=== PATIENT | female | born 1935 | race Caucasian/White ===

== ENCOUNTER 2017-12-31 10:33 | Outpatient (CLI) | payer MEDICARE | END 2017-12-31 10:34 | disposition home or self-care (01) | LOC: BICMAMMO 10:33 | PROVIDERS: ATTEND Family Medicine | DX: Z13.820 Encounter for screening for osteoporosis (principal); M85.88 Other specified disorders of bone density and structure, other site; M51.36 Other intervertebral disc degeneration, lumbar region | CPT/HCPCS: 77080 ==

== ENCOUNTER 2018-04-08 10:37 | Inpatient (IN) | payer MEDICARE, MEDICAID ==
[2018-04-08] MEDS ORDERED: Albuterol Sulfate HFA (OR ONLY) ONE (11:08)
[2018-04-08] MEDS ORDERED: Thrombin 5000 UNITS/5 ML VIAL ONE ×2 (11:32→14:19)
[2018-04-08] MEDS ORDERED: Sodium Chloride 0.9% 20 ML ONE (11:32)
[2018-04-08] MEDS ORDERED: Bupivacaine HCl 0.5%/Epinephrine 1:200,000/PF 30 ml Vial ONE (11:32)
[2018-04-08] MEDS ORDERED: Fentanyl 100 MCG/2 ML VIAL ONE (11:33)
[2018-04-08] MEDS ORDERED: HYDROmorphone 0.5 MG/0.5 ML SYRINGE ONE (11:35)
[2018-04-08] MEDS ORDERED: CEFAZOLIN/Water 2 GM/20 ML SYRINGE ONE (11:43)
[2018-04-08 12:01] LABS: Prothrombin Time 13.2 SEC (12.0-14.7)
[2018-04-08 12:03] LABS: #Eosinphils 0.2 thou/uL (0.0-0.7); #Lymphocytes 1.9 thou/uL (1.20-3.40); #Monocytes 0.5 thou/uL (0.11-0.59); #Neutrophils 5.4 thou/uL (1.40-6.50); %Basophils 0.6 % (0.0-1.0); %Eosinophils 2.4 % (0.0-10.0); %Lymphocytes 23.2 % (21.0-51.0); %Monocytes 6.2 % (0.0-10.0); %Neutrophils 67.7 % (42.0-75.0); Hemoglobin 13.8 g/dL (12.0-16.0); Mean Corpuscular Hemoglobin 32.4 pg (27.0-31.0); Mean Corpuscular Volume 95.4 fl (81.0-99.0); Mean Platelet Volume 6.4 fL (7.4-10.4); Platelet Count 111 thou/uL (130-400); RBC Distribution Width 11.6 % (11.5-14.5); Red Blood Cell (RBC) Count 4.24 mill/uL (4.20-5.40)
[2018-04-08 12:16] LABS: Anion Gap 16 mmol/L (10-20); BUN (Urea Nitrogen) 23 mg/dL (9.8-20.1); Calc. Creatinine Clearance 0 mL/min (70-130); Calcium 8.9 mg/dL (7.8-10.44); Carbon Dioxide 31 mmol/L (23-31); Chloride 93 mmol/L (98-107); Estimated GFR-MDRD 33; Glucose 138 mg/dL (83-110); Potassium 4.9 mmol/L (3.5-5.1); Sodium 135 mmol/L (136-145)
--- NOTE | 2018-04-08 13:09 | HP ---
NEUROSURGERY ADMISSION HISTORY AND PHYSICAL REASON FOR ADMISSION: Here for back surgery. HISTORY OF PRESENT ILLNESS: Ms. Anguiano is an 82-year-old woman who lives in a care center at [facility] because of leg weakness after a fall. It has been a while since being able to stand and walk o n her own legs. The fall, weakness or numbness in the legs has progressively gotten worse over years when she was sent to our office for neurosurgical opinion. Imaging reveals severe lumbar stenosis o chaz multiple segments. This is a surgically treatable. We offered her operative intervention with t giana caveat pain that she will need extensive physical therapy afterwards. She is here for the surgery . PAST MEDICAL HISTORY: Diabetes type I, degenerative joint disease, osteoarthritis, gastroesophageal reflux, COPD, chronic kidney disease stage 3, polyneuropathy, hypokalemia, anxiety disorder, heart fa ilure, chronic atrial fibrillation, hypertension, hypomagnesemia, atherosclerotic heart disease. PAST SURGICAL HISTORY: Total knee replacement in 2009, appendectomy, cholecystectomy, thumb surgery, hip surgery, carpal tunnel release, bilateral excision of heel spurs, bilateral hysterectomy. MEDICATIONS: Include omeprazole, atorvastatin, furosemide, Januvia, potassium chloride, Celexa, andres riptyline, Artificial Tears, magnesium, Lomotil, Multaq, metoprolol, Lyrica, vitamin C, tramadol, Hum alog insulin, promethazine, vitamin B12, meperidine, Imodium, MiraLax, Spiriva, ferrous sulfate, and DuoNebs. ALLERGIES: CODEINE and ASPIRIN. FAMILY HISTORY: Parents were . No family history of significant spine disease. SOCIAL HISTORY: Silvio is staying in the care facility. She is out of her home. She is dependent f or her care. She needs significant assistance to stand and walk. She is a nonsmoker. She does not use alcohol. She does not use drugs. She is retired. REVIEW OF SYMPTOMS: Otherwise negative. PHYSICAL EXAMINATION: GENERAL: Silvio is awake, alert, and answering questions appropriately, receptive and expressive jacobo guage function are normal. NEUROLOGIC: Cranial nerves are grossly intact. Alternating rapid motions are performed rapidly and smoothly. There are no lateralizing motor deficits in the lower extremities. There is moderate weak ness in the quadriceps, hamstrings, anterior tibia, EHL, and gastrocnemius on both sides. There is s ensory deficits in the legs that extend over multiple dermatomes in a stocking distribution. Examina tion of the spine reveals some midline tenderness near the lumbosacral junction. IMAGING FINDINGS AND TEST RESULTS. There is multiple level lumbar stenosis. Flexion and extension v iews do not show significant instability. IMPRESSION: Multilevel lumbar stenosis, severe debilitating neurogenic claudication disease atrophy, leg weakness. PLAN: We will take Ms. Anguiano to the operating room for decompressive laminectomy and plan on keepin g her overnight and consulting our colleagues in the Hospitalist Service due to her multiple medical conditions. Anticipated length of stay is at least one night if not 2-3. We will see how she is doi ng tomorrow. We will get physical therapy to work with her while she is in the hospital.
[2018-04-08] MEDS ORDERED: Albumin 5% 500 ML ONE (14:36)
[2018-04-08] MEDS ORDERED: Ondansetron HCl/PF 4 MG/2 ML Vial ONE (14:59)
[2018-04-08] MEDS ORDERED: Metoclopramide HCl 10 MG/2 ML VIAL ONE (14:59)
[2018-04-08] MEDS ORDERED: PHENYLEPHRINE-NS 100 MCG/ML 10 ML SYRINGE ONE (14:59)
[2018-04-08] MEDS ORDERED: PROPOFOL 200 MG/20 ML VIAL ONE (14:59)
[2018-04-08] MEDS ORDERED: Glycopyrrolate 0.2 MG/ML 5 ML SYRINGE ONE (14:59)
[2018-04-08] MEDS ORDERED: PROVENTIL INHALER 6.7 G (200 INHALATIONS) ONE (14:59)
[2018-04-08] MEDS ORDERED: Lidocaine 1% PF 5 ML VIAL ONE ×2 (14:59)
[2018-04-08 15:05] LABS: Hemoglobin 12.4 g/dL (12.0-16.0)
[2018-04-08] MEDS ORDERED: Ondansetron HCl/PF 4 MG/2 ML Vial IVP PRN ×2 (15:10→15:21)
[2018-04-08] MEDS ORDERED: tiZANidine HCl 4 MG TAB PO PRN (15:10)
[2018-04-08] MEDS ORDERED: traMADol HCl 50 MG TAB PO PRN (15:10)
[2018-04-08] MEDS ORDERED: Promethazine 25 MG TAB PO PRN (15:10)
[2018-04-08] MEDS ORDERED: Promethazine HCl 25 MG/ML VIAL IM PRN ×2 (15:10→15:21)
[2018-04-08] MEDS ORDERED: Cyclobenzaprine 10 MG TAB PO PRN (15:10)
[2018-04-08] MEDS ORDERED: Bisacodyl 10 MG SUPP PR PRN (15:10)
[2018-04-08] MEDS ORDERED: Promethazine HCl 12.5 MG SUPP PR PRN (15:10)
[2018-04-08] MEDS ORDERED: HYDROmorphone 2 MG/ML VIAL SLOW IVP PRN (15:21)
[2018-04-08] MEDS ORDERED: Promethazine HCl 25 MG/ML VIAL SLOW IVP PRN (15:21)
[2018-04-08] MEDS ORDERED: Morphine Sulfate 2 MG/ML SYRINGE SLOW IVP PRN (15:21)
[2018-04-08 18:40] VITALS: BMI 33.2
--- NOTE | 2018-04-08 20:06 | OP ---
DATE OF OPERATION: 04/08/2018 SURGEON: Chuckie Clay M.D. PACKING AND WRAPPING SUPERVISOR: CURTIS Can. PREOPERATIVE INDICATION: Treat pain, prevent neurological deterioration. PREOPERATIVE DIAGNOSES: Multilevel lumbar stenosis, severe neurogenic claudication. POSTOPERATIVE DIAGNOSES: Multilevel lumbar stenosis, severe neurogenic claudication. OPERATIVE PROCEDURE: Decompressive laminectomy, medial facetectomy, foraminotomy, L2-3, L3-4, L4-5. PREOPERATIVE MEDICATION: Ancef 2 grams IV. DRAIN NUMBER: One. DRAIN TYPE: 10 Serbian . OPERATIVE DICTATION: The patient was brought to the operating room. General endotracheal anesthesia was induced. The patient was positioned prone on the operating table with chests and hips supported by gel-filled chest rolls. A lateral fluoro radiograph was used to plan our incision. The lumbar s kin was sterilely prepped and draped. We opened with a 10 blade knife and controlled bleeding with b ipolar and monopolar cautery. We used monopolar cautery to dissect through subcutaneous tissues to t horacodorsal fascia. We incised the fascia in the midline and reflected the paraspinal muscles off t he spinous process and lamina of L2, L3, L4 and the superior portion of L5. Self-retaining retractor s were placed and a lateral fluoro radiograph confirmed the levels upon which we were operating. We then used an Adson rongeur to remove the spinous process of L2, L3, L4 and the superior portion of L5 . Using a Kerrison rongeur, we fashioned the laminectomy. We widened our laminectomy defect until w e were flush with the pedicles at L3, L4, and L5. We performed foraminotomies over the exiting nerve roots including the L2 nerve roots, L3 nerve roots, L4 nerve roots and L5 nerve roots bilaterally. At the completion of our decompression, a Katz ball probe could pass through the lateral recess and out the foramen without impingement. We irrigated copiously with bacitracin irrigation. She had a generous amount of epidural veins which were controlled with gentle bipolar cautery and small pledget s of Gelfoam. We tunneled a drain inferiorly through a separate stab incision. We treated the wound with vancomycin powder. We waxed the bone edges. We closed the wound in anatomic layers over the d rain after copious amounts of irrigation. Sterile dressings were applied. This was a clean case and no contamination.
[2018-04-08] MEDS: Polyethylene Glycol 3350 17 GM Packet PO SCH (20:19)
[2018-04-08] MEDS: Pregabalin 50 MG CAP PO SCH (20:19)
[2018-04-08] MEDS: CEFAZOLIN/Water 2 GM/20 ML SYRINGE SLOW IVP SCH (20:19)
[2018-04-08] MEDS: Citalopram 20 MG TAB PO SCH (20:19)
[2018-04-08] MEDS: Amitriptyline HCl 10 MG TAB PO SCH (20:20)
[2018-04-08] MEDS: Metoprolol Tartrate 25 MG TAB PO SCH (20:20)
[2018-04-08] MEDS: Potassium Chloride 20 MEQ TAB PO SCH (20:20)
[2018-04-08] MEDS: Ascorbic Acid 500 mg Chewable Tablet PO SCH (20:20)
[2018-04-08] MEDS: Sodium Chloride 0.9% 1,000 ML IV SCH (20:35)
--- NOTE | 2018-04-08 23:25 | PDOC.EVN ---
Attending Addendum - Attending Addendum Date/Time: 04/08/18 3354 I personally evaluated the patient and discussed the management with Dr. Reaves. I agree with the History, Examination, Assessment and Plan documented in his consult note with any addition or exceptions noted below. Patient is 82 yo F with Hx of COPD, CHF, CKD3, T2DM, and chronic Afib who is admitted after decompressive laminectomy 2/2 severe neurogenic claudication and lumbar stenosis. She is currently doing well. She has been restarted on home medications for chronic conditions and reports no issues. We have been consulted for medical mgmt. Continue home medications, and will adjust as necessary. Will add Accuchecks due to her GARCIA therapy for T2DM that can precipitate hypoglycemia in a patient of this age, especially with alteration of diet. HR stable, continue to monitor as anesthesia can be trigger for Afib RVR. Will adjust medications as necessary, but as of current, I do not see any conditions that would hinder her discharge once stable by the primary team.
[2018-04-09] MEDS: CEFAZOLIN/Water 2 GM/20 ML SYRINGE SLOW IVP SCH ×2 (03:14→11:35)
[2018-04-09] MEDS: Sodium Chloride 0.9% 1,000 ML IV SCH ×2 (03:16→17:06)
[2018-04-09 05:32] LABS: Anion Gap 12 mmol/L (10-20); BUN (Urea Nitrogen) 22 mg/dL (9.8-20.1); Calc. Creatinine Clearance 43 mL/min (70-130); Calcium 8.1 mg/dL (7.8-10.44); Carbon Dioxide 31 mmol/L (23-31); Chloride 96 mmol/L (98-107); Estimated GFR-MDRD 32; Glucose 127 mg/dL (83-110); Potassium 4.7 mmol/L (3.5-5.1); Sodium 134 mmol/L (136-145)
--- NOTE | 2018-04-09 05:53 | CON-2 ---
ADMITTING PHYSICIAN: Chuckie Clay M.D. CONSULTING PHYSICIAN: Jason Brock MD PRIMARY CARE PHYSICIAN: Swati Carmen M.D. HISTORIAN: The patient. CHIEF COMPLAINT: Weakness and leg pain. HISTORY OF PRESENT ILLNESS: This is an 82-year-old female with past medical history of type 2 diabetes, COPD, diastolic CHF, chronic atrial fibrillation, coronary artery disease, hypertension, kidney disease stage 3, DJD and osteoarthritis, who presented from a [facility] today due to leg weakness and recurrent falls. This weakness and numbness in the legs has progressively gotten worse over the years, was then evaluated by Neurosurgery, who noted progression of her severe lumbar stenosis in multiple areas. She was admitted for decompressive laminectomy today by Dr. Clay. When interviewed postoperatively, the patient feels that her legs are much better, but she still has some mild back pain from surgery. The patient has been restarted on all of her home medications. Denies any chest pain or shortness of breath at this time. PAST MEDICAL HISTORY: 1. Chronic atrial fibrillation. 2. Diastolic CHF. 3. Type 2 diabetes. 4. COPD. 5. CAD. 6. Hypertension. 7. GERD. 8. CKD, stage 3. 9. Degenerative joint disease. 10. Osteoarthritis. PAST SURGICAL HISTORY: 1. Total knee replacement. 2. Cholecystectomy. 3. Appendectomy. 4. Hip surgery. 5. Hysterectomy 6. Thumb surgery. ALLERGIES: Patient is allergic to CODEINE and ASPIRIN. MEDICATIONS: 1. Januvia 25 mg p.o. daily. 2. Lasix 40 mg p.o. b.i.d. 3. Lomotil 1-2 tabs p.o. daily p.r.n. 4. Lyrica 50 mg 1 tab p.o. b.i.d. 5. Magnesium 250 mg 1 tab b.i.d. 6. Metoprolol tartrate 12.5 mg 1 tablet p.o. b.i.d. 7. MiraLax 17 g daily p.r.n. 8. Multaq 400 mg 1 tablet b.i.d. 9. Omeprazole 20 mg 1 tablet p.o. daily. 10. Pravastatin 10 mg 1 tablet p.o. at bedtime. 11. Promethazine 12.5 mg p.o. daily p.r.n. nausea, vomiting. 12. Spiriva 18 mcg one capsule daily. 13. Zyrtec 2 mg 1 tablet p.o. daily. 14. Alendronate 70 mg p.o. 1 tablet daily. 15. Sitagliptin 50 mg p.o. daily. 16. Folate 1 tablet p.o. daily. 17. Ferrous sulfate 325 mg 1 tablet p.o. daily. 18. Celexa 30 mg 1 tablet at bedtime 19. Amitriptyline 10 mg p.o. at bedtime. FAMILY HISTORY: Noncontributory to this case. SOCIAL HISTORY: Denies tobacco, alcohol, or drug use. The patient resides in a long-term care facility in [place]. REVIEW OF SYSTEMS: A 10-point review of systems performed and negative except as per HPI above. PHYSICAL EXAMINATION: VITAL SIGNS: Blood pressure 129/62, pulse 72, respirations 16, T-max 97.7, pulse ox 97% on 2 liters nasal cannula, weight 99 kilos. GENERAL: Alert and oriented x3, no acute distress, obese female who is appropriately interactive, smiling, comfortable lying in bed. EYES: Pupils equal, round, and reactive to light. Extraocular movements are intact. Conjunctivae within normal limits. ENT: Nasal mucosa and oropharynx within normal limits. NECK: Supple, without lymphadenopathy. CARDIOVASCULAR: Irregular rhythm, regular rate, no murmurs. Radial and pedal pulses are present. RESPIRATORY: Normal effort, no retractions, clear to auscultation bilaterally. SKIN: Warm and dry without cyanosis or lesions. ABDOMEN: Soft, nontender to palpation. Bowel sounds are present. EXTREMITIES: No cyanosis or edema. Muscle strength are limited due to pain, however, structure appears within normal limits. Tone within normal limits ( limited due to lower extremity weakness). NEUROLOGIC: No deficits. Sensation within normal limits. Cranial II-XII are intact. GCS 15. PSYCHIATRIC: Appropriate. LABORATORY: CBC; hemoglobin 12.4, hematocrit 35.5, platelets 111. CMP; sodium 135, potassium 4.9, chloride 93, bicarbonate 31, BUN 23, creatinine 1.49, glucose 138. PT 13.2, INR 1.0. Urinalysis pending at this time. ASSESSMENT AND PLAN: This is an 82-year-old female who presented for decompressive laminectomy due to neurogenic claudication and weakness. We were consulted for medical management. 1. Lumbar stenosis. The patient is status post decompressive laminectomy, management as per primary team. Pain appears well controlled at this time. 2. Type 2 diabetes. We will continue home diabetic medication. Accu-Cheks before meals and at bedtime. Add sliding scale as needed, although the patient appeared well controlled thus far on this medication. 3. Coronary artery disease. The patient is allergic to ASPIRIN. We will continue rate controlled with metoprolol and Lasix. 4. Diastolic congestive heart failure. We will continue Lasix. The patient was euvolemic at this time. 5. Chronic obstructive pulmonary disease. P.r.n. DuoNeb. Continue Spiriva. 6. Chronic atrial fibrillation. Continue dronedarone and metoprolol, rate control at this time, asymptomatic. 7. Hypertension. Continue metoprolol, otherwise not on any blood pressure medications. 8. Degenerative joint disease. Tylenol p.r.n. 9. Gastroesophageal reflux disease. Continue proton pump inhibitor. 10. Chronic kidney disease stage 3, appears at baseline at this time. We will recheck BMP in the morning. Continue to trend. Thank you for this consultation. We will continue to follow the patient. CHEMA
[2018-04-09 06:05] LABS: #Eosinphils 0.1 thou/uL (0.0-0.7); #Monocytes 0.6 thou/uL (0.11-0.59); #Neutrophils 5.6 thou/uL (1.40-6.50); %Basophils 0.3 % (0.0-1.0); %Eosinophils 1.5 % (0.0-10.0); %Lymphocytes 14.3 % (21.0-51.0); %Monocytes 7.8 % (0.0-10.0); %Neutrophils 76.1 % (42.0-75.0); Hemoglobin 9.7 g/dL (12.0-16.0); Mean Corpuscular HGB CONC 34.7 g/dL (32.0-36.0); Mean Corpuscular Hemoglobin 33.3 pg (27.0-31.0); Mean Corpuscular Volume 96.2 fl (81.0-99.0); Mean Platelet Volume 6.5 fL (7.4-10.4); PLT Morphology Comment Appears Decreased; Platelet Count 80 thou/uL (130-400); RBC Distribution Width 11.6 % (11.5-14.5); Red Blood Cell (RBC) Count 2.91 mill/uL (4.20-5.40); White Blood Cell (WBC) Count 7.3 thou/uL (4.8-10.8)
--- NOTE | 2018-04-09 07:08 | PRG ---
DATE OF SERVICE: 04/09/2018 SUBJECTIVE: Ms. Kit Anguiano was seen in our hospital room this morning. She is postop day #1 from a multi-segment lumbar decompression for severe lumbar stenosis. Ms. Anguiano complaints of some back soreness from surgery, but says the legs feel normal to her. Her vitals have been stable overnight. Her blood pressure is 116/50 in her latest blood pressure test. On examination, she is moving her ankles and toes well. There is a stocking distribution sensory loss from her diabetes, but I do not find any new deficits relative to the surgery. Ms. Anguiano has been bedbound and not walking for quite some time. It is going to take extensive phys ical therapy to get her back up. We will start that process here and she may benefit from inpatient rehabilitation. She lives in [facility] and return to the intermediate could be possib le, but she might do better in inpatient physical therapy unit for the first few days.
[2018-04-09] MEDS: Polyethylene Glycol 3350 17 GM Packet PO SCH (08:40)
[2018-04-09] MEDS: Pregabalin 50 MG CAP PO SCH ×2 (08:42→23:29)
[2018-04-09] MEDS: Potassium Chloride 20 MEQ TAB PO SCH ×2 (08:42→23:32)
[2018-04-09] MEDS: Dronedarone HCl 400 MG TAB PO SCH ×2 (08:43→16:42)
[2018-04-09] MEDS: Alogliptin 25 MG TAB PO SCH (08:43)
[2018-04-09] MEDS: Folic Acid 1 MG TAB PO SCH (08:44)
[2018-04-09] MEDS: Ferrous Sulfate 325 MG TAB PO SCH (08:44)
[2018-04-09] MEDS: Ascorbic Acid 500 mg Chewable Tablet PO SCH ×2 (08:44→23:32)
[2018-04-09] MEDS: Furosemide 40 MG TAB PO SCH ×2 (08:44→13:32)
[2018-04-09] MEDS: Metoprolol Tartrate 25 MG TAB PO SCH ×2 (08:44→23:30)
--- NOTE | 2018-04-09 09:11 | PDOC.FM ---
- Subjective Subjective: Patient found resting in bed. She endorse having urination, has no BM yet, feels her surgical pain is tolerable. She says she is ready to start rehab. - Objective MAR Reviewed: Yes Vital Signs & Weight: Vital Signs (12 hours) Temp Pulse Resp BP Pulse Ox 04/09/18 08:15 98.3 F 82 16 97 04/09/18 07:29 98.3 F 82 16 136/74 97 04/09/18 03:30 97.6 F 79 16 116/50 L 99 04/09/18 00:00 98.1 F 72 18 135/69 96 Weight Weight 99 kg I&O: 04/08/18 04/09/18 04/10/18 06:59 06:59 06:59 Intake Total 930 Output Total 100 Balance 830 Result Diagrams: 04/09/18 04:25 04/09/18 04:25 <Juliano Ramon M - Last Filed: 04/09/18 09:06> - Objective Vital Signs & Weight: Vital Signs (12 hours) Temp Pulse Resp BP Pulse Ox 04/09/18 11:37 98.8 F 69 18 113/70 99 04/09/18 08:15 98.3 F 82 16 97 04/09/18 07:29 98.3 F 82 16 136/74 97 04/09/18 03:30 97.6 F 79 16 116/50 L 99 Weight Weight 99 kg I&O: 04/08/18 04/09/18 04/10/18 06:59 06:59 06:59 Intake Total 930 Output Total 100 Balance 830 Result Diagrams: 04/09/18 04:25 04/09/18 04:25 <Jason Brock R - Last Filed: 04/09/18 14:24> Phys Exam - Physical Examination Constitutional: NAD HEENT: moist MMs, sclera anicteric, oral pharynx no lesions Neck: no nodes, supple Respiratory: no wheezing, no rales, no rhonchi, clear to auscultation bilateral Cardiovascular: RRR, no significant murmur, no rub Gastrointestinal: soft, no distention Musculoskeletal: no edema Clean appearing surgical wound at back. Neurological: non-focal Lymphatic: no nodes Psychiatric: normal affect Skin: no rash <Juliano Ramon M - Last Filed: 04/09/18 09:06> Dx/Plan (1) Lumbar stenosis Code(s): M48.061 - SPINAL STENOSIS, LUMBAR REGION WITHOUT NEUROGENIC JAMES Status: Acute Plan: Patient is s/p laminectomy day 1. Her pain is well controlled. She states she wants to start PT today. (2) GERD (gastroesophageal reflux disease) Code(s): K21.9 - GASTRO-ESOPHAGEAL REFLUX DISEASE WITHOUT ESOPHAGITIS Status: Acute Plan: Continue PPI. She is not having issues from this at the moment. (3) CAD (coronary artery disease) Code(s): I25.10 - ATHSCL HEART DISEASE OF [place] CORONARY ARTERY W/O ANG PCTRS Status: Chronic Plan: Continue on lasix and metoprolol Patient allergic to aspirin. (4) CKD (chronic kidney disease) stage 3, GFR 30-59 ml/min Status: Chronic Plan: Stable and at baseline compared to previous visit. (5) COPD (chronic obstructive pulmonary disease) Status: Chronic Plan: Duoneb order placed for SOB/wheezing as needed. (6) Diabetes type 2, controlled Code(s): E11.9 - TYPE 2 DIABETES MELLITUS WITHOUT COMPLICATIONS Status: Chronic Plan: Added ACHS glucose check, add mild sliding scale insulin. Glucose in morning was appropriate. (7) Hypertension Code(s): I10 - ESSENTIAL (PRIMARY) HYPERTENSION Status: Chronic Plan: Pressure appropriate. Taking Multaq and metoprolol primarily for paroxsymal afib , but these also have some BP lowering. (8) Paroxysmal atrial fibrillation Code(s): I48.0 - PAROXYSMAL ATRIAL FIBRILLATION Status: Chronic Plan: Regular at this time. <Juliano Ramon M - Last Filed: 04/09/18 09:06> Attending Addendum - Attending Addendum Date/Time: 04/09/18 0241 I personally evaluated the patient and discussed the management with Dr. Ramon. I agree with the History, Examination, Assessment and Plan documented above with any addition or exceptions noted below. Patient doing well. Pain controlled by primary team. HR, BP, and renal function at baseline. Continue current medications and discharge per primary team. <Jason Brock - Last Filed: 04/09/18 14:24>
[2018-04-09] MEDS ORDERED: Dextrose 5% in Water 1,000 ML IV PRN (09:25)
[2018-04-09] MEDS ORDERED: Dextrose 50% Abboject 50 ML SYRINGE SLOW IVP PRN (09:25)
--- NOTE | 2018-04-09 09:46 | PDOC.FM ---
- Subjective Subjective: Patient - Objective MAR Reviewed: Yes Vital Signs & Weight: Vital Signs (12 hours) Temp Pulse Resp BP Pulse Ox 04/09/18 08:15 98.3 F 82 16 97 04/09/18 07:29 98.3 F 82 16 136/74 97 04/09/18 03:30 97.6 F 79 16 116/50 L 99 04/09/18 00:00 98.1 F 72 18 135/69 96 Weight Weight 99 kg I&O: 04/08/18 04/09/18 04/10/18 06:59 06:59 06:59 Intake Total 930 Output Total 100 Balance 830 Result Diagrams: 04/09/18 04:25 04/09/18 04:25 Dx/Plan (1) Lumbar stenosis Code(s): M48.061 - SPINAL STENOSIS, LUMBAR REGION WITHOUT NEUROGENIC JAMES Status: Acute Plan: Patient is s/p laminectomy day 1. Her pain is well controlled. She states she wants to start PT today. (2) GERD (gastroesophageal reflux disease) Code(s): K21.9 - GASTRO-ESOPHAGEAL REFLUX DISEASE WITHOUT ESOPHAGITIS Status: Acute Plan: Continue PPI. She is not having issues from this at the moment. (3) CAD (coronary artery disease) Code(s): I25.10 - ATHSCL HEART DISEASE OF [place] CORONARY ARTERY W/O ANG PCTRS Status: Chronic Plan: Continue on lasix and metoprolol Patient allergic to aspirin. (4) CKD (chronic kidney disease) stage 3, GFR 30-59 ml/min Status: Chronic Plan: Stable and at baseline compared to previous visit. (5) COPD (chronic obstructive pulmonary disease) Status: Chronic Qualifiers: Plan: Duoneb order placed for SOB/wheezing as needed. (6) Diabetes type 2, controlled Code(s): E11.9 - TYPE 2 DIABETES MELLITUS WITHOUT COMPLICATIONS Status: Chronic Plan: Added ACHS glucose check, add mild sliding scale insulin. Glucose in morning was appropriate. (7) Hypertension Code(s): I10 - ESSENTIAL (PRIMARY) HYPERTENSION Status: Chronic Plan: Pressure appropriate. Taking Multaq and metoprolol primarily for paroxsymal afib , but these also have some BP lowering. (8) Paroxysmal atrial fibrillation Code(s): I48.0 - PAROXYSMAL ATRIAL FIBRILLATION Status: Chronic Plan: Regular at this time.
[2018-04-09] MEDS: HumaLOG 300 UNITS/3 ML VIAL SC PRN (12:06)
[2018-04-09] MEDS: Citalopram 20 MG TAB PO SCH (23:31)
[2018-04-09] MEDS: Amitriptyline HCl 10 MG TAB PO SCH (23:32)
[2018-04-09] MEDS: traMADol HCl 50 MG TAB PO PRN (23:59)
[2018-04-10] MEDS: Sodium Chloride 0.9% 1,000 ML IV SCH (07:24)
[2018-04-10] MEDS: Pregabalin 50 MG CAP PO SCH ×2 (08:23→22:39)
[2018-04-10] MEDS: Dronedarone HCl 400 MG TAB PO SCH ×2 (08:23→17:44)
[2018-04-10] MEDS: Ascorbic Acid 500 mg Chewable Tablet PO SCH ×2 (08:24→22:38)
[2018-04-10] MEDS: Folic Acid 1 MG TAB PO SCH (08:24)
[2018-04-10] MEDS: Furosemide 40 MG TAB PO SCH ×2 (08:24→13:12)
[2018-04-10] MEDS: Metoprolol Tartrate 25 MG TAB PO SCH ×2 (08:24→22:38)
[2018-04-10] MEDS: Potassium Chloride 20 MEQ TAB PO SCH ×2 (08:24→22:39)
[2018-04-10] MEDS: Ferrous Sulfate 325 MG TAB PO SCH (08:25)
[2018-04-10] MEDS: Polyethylene Glycol 3350 17 GM Packet PO SCH ×3 (08:25→22:46)
[2018-04-10] MEDS: Alogliptin 25 MG TAB PO SCH (08:56)
--- NOTE | 2018-04-10 09:08 | PRG ---
DATE OF SERVICE: 04/10/2018 NEUROSURGERY NOTE SUBJECTIVE: Ms. Anguiano is 2 days out from a lumbar laminectomy. Her drain output was recorded yeste rday evening, but nothing overnight. She tells me she sat at the bedside yesterday, but did not brock d. There are no other issues. Vitals this morning look stable. She is afebrile. The drain is in p lace. Other than her length dependent peripheral neuropathy from diabetes, I do not find any new deirdre rological deficits. My plan for today is to attempt to stand with therapy. Hopefully, an inpatient rehabilitation stay c an be arranged for her. If the drain output is low this morning, it can be removed. We will continu e antibiotics until the drain is out and then give her 1 more dose and stop those.
--- NOTE | 2018-04-10 09:19 | PDOC.FM ---
- Subjective Subjective: Pt resting comfortable. States that pain is controlled. She has no specific complaints and states she is ready to work with PT - Objective MAR Reviewed: Yes Vital Signs & Weight: Vital Signs (12 hours) Temp Pulse Resp BP Pulse Ox 04/10/18 07:43 99.1 F 71 18 127/69 96 04/10/18 04:00 98 F 70 18 99/56 L 95 04/10/18 00:00 98.2 F 77 18 113/66 75 L Weight Weight 99 kg I&O: 04/09/18 04/10/18 04/11/18 06:59 06:59 06:59 Intake Total 930 300 480 Output Total 100 75 Balance 830 225 480 Result Diagrams: 04/09/18 04:25 04/09/18 04:25 <Emerson Negro - Last Filed: 04/10/18 09:17> - Objective Vital Signs & Weight: Vital Signs (12 hours) Temp Pulse Resp BP Pulse Ox 04/10/18 07:43 99.1 F 71 18 127/69 96 04/10/18 04:00 98 F 70 18 99/56 L 95 04/10/18 00:00 98.2 F 77 18 113/66 75 L Weight Weight 99 kg I&O: 04/09/18 04/10/18 04/11/18 06:59 06:59 06:59 Intake Total 930 300 480 Output Total 100 75 Balance 830 225 480 Result Diagrams: 04/09/18 04:25 04/09/18 04:25 <Breana Rodriguez - Last Filed: 04/10/18 09:50> Phys Exam - Physical Examination Constitutional: NAD HEENT: PERRLA, moist MMs Neck: no JVD Respiratory: clear to auscultation bilateral Cardiovascular: RRR, no significant murmur Gastrointestinal: soft, non-tender Musculoskeletal: no edema, pulses present Neurological: non-focal, normal sensation, moves all 4 limbs Lymphatic: no nodes Psychiatric: normal affect, A&O x 3 Skin: no rash, normal turgor <Emerson Negro - Last Filed: 04/10/18 09:17> Dx/Plan (1) GERD (gastroesophageal reflux disease) Code(s): K21.9 - GASTRO-ESOPHAGEAL REFLUX DISEASE WITHOUT ESOPHAGITIS Status: Acute Plan: Continue home PPI (2) Lumbar stenosis Code(s): M48.061 - SPINAL STENOSIS, LUMBAR REGION WITHOUT NEUROGENIC JAMES Status: Acute Plan: s/p laminectomy POD 2. Pain controlled. (3) CAD (coronary artery disease) Code(s): I25.10 - ATHSCL HEART DISEASE OF [place] CORONARY ARTERY W/O ANG PCTRS Status: Chronic Plan: Continue home metoprolol and lasix (4) CKD (chronic kidney disease) stage 3, GFR 30-59 ml/min Status: Chronic Plan: At baseline and stable (5) COPD (chronic obstructive pulmonary disease) Status: Chronic Plan: PRN duoneb. Currently at baseline (6) Diabetes type 2, controlled Code(s): E11.9 - TYPE 2 DIABETES MELLITUS WITHOUT COMPLICATIONS Status: Chronic Plan: ACHS accucheck. SSI. Low carb diet (7) Hypertension Code(s): I10 - ESSENTIAL (PRIMARY) HYPERTENSION Status: Chronic Plan: Pressure WNL,. Continue home meds (8) Paroxysmal atrial fibrillation Code(s): I48.0 - PAROXYSMAL ATRIAL FIBRILLATION Status: Chronic Plan: RRR at this time - Plan Plan: Dispo: pt is medically stable. DC planning to be done by primary team, current plan to dc to rehab <Emerson Negro - Last Filed: 04/10/18 09:17> Attending Addendum - Attending Addendum Date/Time: 04/10/18 0950 I personally evaluated the patient and discussed the management with Dr. Negro. I agree with the History, Examination, Assessment and Plan documented above with any addition or exceptions noted below. The patient is waiting on evaluation for inpatient rehab. she states pain is controlled. <Breana Rodriguez - Last Filed: 04/10/18 09:50>
--- NOTE | 2018-04-10 12:12 | ULT ---
VENOUS DOPLER BILATERAL: HISTORY: Immobility, lower extremity edema. FINDINGS: Multiple longitudinal and transverse images of the right and left lower extremity venous systems are obtained using a multihertz linear ray transducer. Real-time, color flow, and spectral waveform Dopp ler analysis was used to evaluate both lower extremity venous systems. Images demonstrate no evidence of acute or old clot seen in the right or left common femoral, superfi cial femoral, femoral profunda, popliteal, posterior tibial vein, post trifurcation veins, and greate r saphenous veins. IMPRESSION: No evidence of right or left lower extremity deep venous thrombosis. POS: [facility]
[2018-04-10] MEDS: CEFAZOLIN/Water 2 GM/20 ML SYRINGE SLOW IVP SCH ×2 (13:12→22:40)
[2018-04-10] MEDS ORDERED: Acetaminophen 500 MG TAB PO PRN ×2 (14:18)
[2018-04-10] MEDS: Citalopram 20 MG TAB PO SCH (22:38)
[2018-04-10] MEDS: Amitriptyline HCl 10 MG TAB PO SCH (22:39)
[2018-04-11] MEDS: Sodium Chloride 0.9% 1,000 ML IV SCH ×2 (01:23→08:50)
[2018-04-11] MEDS: CEFAZOLIN/Water 2 GM/20 ML SYRINGE SLOW IVP SCH ×3 (06:18→22:00)
--- NOTE | 2018-04-11 07:05 | PDOC.FM ---
- Subjective Subjective: 82 yo F s/p laminectomy POD 3. Pt was found to have fever of 100.8 yesterday and was started on Ancef. This has since resolved. She was only able to sit up with legs over the side of the bed with PT. She states that her pain is controlled. Denies all other symptoms in ROS. - Objective Vital Signs & Weight: Vital Signs (12 hours) Temp Pulse Resp BP Pulse Ox 04/11/18 04:00 98.9 F 70 16 106/50 L 96 04/11/18 00:00 99.8 F H 72 72 H 121/70 96 04/10/18 23:20 99.8 F H 72 16 121/70 96 04/10/18 20:00 99.8 F H 79 16 117/63 96 Weight Weight 99 kg I&O: 04/10/18 04/11/18 04/12/18 06:59 06:59 06:59 Intake Total 300 780 Output Total 75 170 Balance 225 610 Result Diagrams: 04/09/18 04:25 04/09/18 04:25 <Emerson Negro - Last Filed: 04/11/18 07:07> - Objective Vital Signs & Weight: Vital Signs (12 hours) Temp Pulse Resp BP Pulse Ox 04/11/18 12:00 98.3 F 66 18 113/64 94 L 04/11/18 11:33 98.3 F 66 18 113/64 94 L 04/11/18 07:55 98.2 F 68 18 96 04/11/18 07:36 98.2 F 68 18 123/63 96 04/11/18 04:00 98.9 F 70 16 106/50 L 96 Weight Weight 99 kg I&O: 04/10/18 04/11/18 04/12/18 06:59 06:59 06:59 Intake Total 300 780 750 Output Total 75 170 Balance 225 610 750 Result Diagrams: 04/09/18 04:25 04/09/18 04:25 <Breana Rodriguez - Last Filed: 04/11/18 15:27> Phys Exam - Physical Examination Constitutional: NAD HEENT: moist MMs, sclera anicteric Neck: no JVD, full ROM Respiratory: clear to auscultation bilateral Cardiovascular: RRR, no significant murmur Gastrointestinal: soft, non-tender, no distention, positive bowel sounds Musculoskeletal: no edema, pulses present Neurological: non-focal, normal sensation, moves all 4 limbs Lymphatic: no nodes Psychiatric: A&O x 3 Skin: no rash, normal turgor <Emerson Negro - Last Filed: 04/11/18 07:07> Dx/Plan (1) Lumbar stenosis Code(s): M48.061 - SPINAL STENOSIS, LUMBAR REGION WITHOUT NEUROGENIC JAMES Status: Acute Plan: s/p laminectomy POD 3. Some concern for post op infection dt fever. This has since resolved. She denies chills, n/v, pain at incision site. Continue abx (2) GERD (gastroesophageal reflux disease) Code(s): K21.9 - GASTRO-ESOPHAGEAL REFLUX DISEASE WITHOUT ESOPHAGITIS Status: Acute Plan: Continue home PPI (3) CAD (coronary artery disease) Code(s): I25.10 - ATHSCL HEART DISEASE OF [place] CORONARY ARTERY W/O ANG PCTRS Status: Chronic Plan: Continue home metoprolol and lasix (4) CKD (chronic kidney disease) stage 3, GFR 30-59 ml/min Status: Chronic Plan: At baseline and stable (5) COPD (chronic obstructive pulmonary disease) Status: Chronic Plan: PRN duoneb. Currently at baseline (6) Diabetes type 2, controlled Code(s): E11.9 - TYPE 2 DIABETES MELLITUS WITHOUT COMPLICATIONS Status: Chronic Plan: ACHS accucheck. SSI. Low carb diet (7) Hypertension Code(s): I10 - ESSENTIAL (PRIMARY) HYPERTENSION Status: Chronic Plan: Pressure WNL,. Continue home meds (8) Paroxysmal atrial fibrillation Code(s): I48.0 - PAROXYSMAL ATRIAL FIBRILLATION Status: Chronic Plan: RRR at this time <Emerson Negro - Last Filed: 04/11/18 07:07> Attending Addendum - Attending Addendum Date/Time: 04/11/18 8051 I personally evaluated the patient and discussed the management with Dr. Negro. I agree with the History, Examination, Assessment and Plan documented above with any addition or exceptions noted below. Pt spiked a fever yesterday and has been started on ancef by neurosurgery. Discussed the need for the patient to get out of bed and sit in a chair some today with nursing assistance. Still waiting on inpatient rehab screening. <Breana Rodriguez - Last Filed: 04/11/18 15:27>
--- NOTE | 2018-04-11 07:56 | PRG ---
DATE OF SERVICE: 04/11/2018 NEUROSURGERY NOTE SUBJECTIVE: Ms. Anguiano is 3 days out from a decompressive laminectomy. Yesterday's ultrasound of lo wer extremities was negative. Her drain remains in place. She tells me she did not stand yesterday. She did not transfer to a chair. She has not been out of her hospital bed since her laminectomy. I am seeing Ms. Anguiano this morning. She is awake and alert. She had a low grade fever of 100.8 deg lauren Fahrenheit last night. The drain has put 45 mL of fluid out since 8:00 p.m. Her neurological e xamination remains stable. Today's plan includes removal of the drain, continuation of her Ancef and transfers to a chair. We a re awaiting rehab evaluation. She will need to participate aggressively in physical therapy in order to get the best benefit from our laminectomy.
[2018-04-11] MEDS: Dronedarone HCl 400 MG TAB PO SCH ×2 (08:48→17:08)
[2018-04-11] MEDS: Pregabalin 50 MG CAP PO SCH ×2 (08:48→22:02)
[2018-04-11] MEDS: Ferrous Sulfate 325 MG TAB PO SCH (08:49)
[2018-04-11] MEDS: Ascorbic Acid 500 mg Chewable Tablet PO SCH ×2 (08:49→22:03)
[2018-04-11] MEDS: Potassium Chloride 20 MEQ TAB PO SCH ×2 (08:49→22:01)
[2018-04-11] MEDS: Alogliptin 25 MG TAB PO SCH (08:49)
[2018-04-11] MEDS: Polyethylene Glycol 3350 17 GM Packet PO SCH ×2 (08:49→22:42)
[2018-04-11] MEDS: Furosemide 40 MG TAB PO SCH ×2 (08:50→13:10)
[2018-04-11] MEDS: Metoprolol Tartrate 25 MG TAB PO SCH ×2 (08:50→22:01)
[2018-04-11] MEDS: Folic Acid 1 MG TAB PO SCH (08:50)
[2018-04-11] MEDS: HumaLOG 300 UNITS/3 ML VIAL SC PRN ×2 (12:25→17:08)
[2018-04-11 15:33] LABS: Bilirubin Negative (Negative); Blood, Urine Small (Negative); Clarity CLOUDY (Clear); Glucose, Urine (Dipstick) Negative (Negative); Leukocyte Large (Negative); Nitrite Negative (Negative); Protein, Urine (Dipstick) Trace mg/dL (Neg-Trace); Specific Gravity, Urine 1.014 (1.002-1.036); Urobilinogen 0.2 mg/dL (0.2-1.0); pH, Urine 5.5 (5.0-9.0)
[2018-04-11 15:35] LABS: Bacteria/HPF None Seen HPF (None Seen); Hyaline Casts/LPF 7-10 HYALINE CAST LPF (0-3 Hyaline); Pathc Cast-AUWi Flag 2.18 (0-2.49); RBC/HPF 0-3 HPF (0-3); Squamous Epithelial None Seen HPF (0-3)
[2018-04-11] MEDS: traMADol HCl 50 MG TAB PO PRN (22:00)
[2018-04-11] MEDS: Citalopram 20 MG TAB PO SCH (22:02)
[2018-04-11] MEDS: Amitriptyline HCl 10 MG TAB PO SCH (22:03)
[2018-04-12] MEDS: Sodium Chloride 0.9% 1,000 ML IV SCH ×2 (01:24→11:44)
[2018-04-12] MEDS ORDERED: Alendronate Sodium 70 mg Tablet PO SCH ×2 (06:00)
[2018-04-12] MEDS: CEFAZOLIN/Water 2 GM/20 ML SYRINGE SLOW IVP SCH ×3 (06:44→21:17)
--- NOTE | 2018-04-12 06:57 | PDOC.FM ---
- Subjective Subjective: Doing well at this time. Patient has no complaint except for itching on her shoulder, which nursing is applying lotion to. She says she hasn't been out of bed yet and that PT didn't show up yesterday. - Objective MAR Reviewed: Yes Vital Signs & Weight: Vital Signs (12 hours) Temp Pulse Resp BP Pulse Ox 04/12/18 03:24 98.4 F 62 16 93/53 L 95 04/12/18 00:00 98.2 F 66 16 118/65 97 04/11/18 20:00 98.4 F 68 20 109/63 95 Weight Weight 99 kg I&O: 04/10/18 04/11/18 04/12/18 06:59 06:59 06:59 Intake Total 473 736 3344 Output Total 75 170 400 Balance 741 192 2983 Result Diagrams: 04/09/18 04:25 04/09/18 04:25 <Juliano Ramon M - Last Filed: 04/12/18 09:18> - Objective Vital Signs & Weight: Vital Signs (12 hours) Temp Pulse Resp BP Pulse Ox 04/13/18 07:53 97.6 F 68 18 121/71 95 04/13/18 03:49 97.7 F 62 14 113/69 94 L 04/13/18 00:08 97.8 F 59 L 16 112/59 L 96 04/12/18 21:35 97.8 F 60 14 112/66 99 Weight Admit Weight 99 kg Weight 99 kg I&O: 04/12/18 04/13/18 04/14/18 06:59 06:59 06:59 Intake Total 1950 1710 Output Total 400 Balance 1550 1710 Result Diagrams: 04/09/18 04:25 04/09/18 04:25 <Brain Jaramillo - Last Filed: 04/13/18 09:31> Phys Exam - Physical Examination Constitutional: NAD HEENT: moist MMs Neck: supple Respiratory: no wheezing, no rales, no rhonchi Cardiovascular: RRR Mild 1/6 systolic murmur heard at EDER sternal border Gastrointestinal: soft Musculoskeletal: no edema Neurological: non-focal, moves all 4 limbs Lymphatic: no nodes Psychiatric: normal affect, A&O x 3 Skin: no rash <Juliano Ramon M - Last Filed: 04/12/18 09:18> Dx/Plan (1) Lumbar stenosis Code(s): M48.061 - SPINAL STENOSIS, LUMBAR REGION WITHOUT NEUROGENIC JAMES Status: Acute Plan: Plan for patient to continue PT. Dispo to inpatient rehab likely based on Neurosurg note. Patient pain under control. (2) CAD (coronary artery disease) Code(s): I25.10 - ATHSCL HEART DISEASE OF [place] CORONARY ARTERY W/O ANG PCTRS Status: Chronic Plan: Chronic issue, at this time stable. Continue home metoprolol and lasix. (3) CKD (chronic kidney disease) stage 3, GFR 30-59 ml/min Status: Chronic Plan: Has been at her baseline this year for the last two check. Will hold off on future BMP check as of this time. (4) COPD (chronic obstructive pulmonary disease) Status: Chronic Plan: Not having increased O2 requirement or symptoms. Continue prn duoneb. (5) Diabetes type 2, controlled Code(s): E11.9 - TYPE 2 DIABETES MELLITUS WITHOUT COMPLICATIONS Status: Chronic Plan: Glucose well controlled during past 24 hour. Has not required SSI Plan to continue home medication. (6) Hypertension Code(s): I10 - ESSENTIAL (PRIMARY) HYPERTENSION Status: Chronic Plan: No HTN episode. Continue home med (7) Paroxysmal atrial fibrillation Code(s): I48.0 - PAROXYSMAL ATRIAL FIBRILLATION Status: Chronic Plan: No symptoms of afib. Continue home metoprolol and multaq. <Juliano Ramon - Last Filed: 04/12/18 09:18> Attending Addendum - Attending Addendum Date/Time: 04/13/18930; seen on 04/12. I personally evaluated the patient and discussed the management with Dr. Ramon. I agree with and repeated the History, Examination, Assessment and Plan documented above with any addition or exceptions noted below. Continue medical management of comorbidities. Disposition per surgery. <Brain Jaramillo - Last Filed: 04/13/18 09:31>
--- NOTE | 2018-04-12 07:27 | PRG ---
DATE OF SERVICE: 04/12/2018 I am seeing Ms. Anguiano in her hospital room. She is 4 days out from lumbar laminectomy. She was not gotten out of bed by nursing or physical therapy through the weekend. She is lying in bed and this puts her wound at risk. Ms. Anguiano has no complaints for me this morning other than the physical therapy did not visit her ye sterday. Her recorded vital signs do not show any fever. Other vital signs have been stable. On ex amination, she has good feeling all the way to her toes. She has length dependent peripheral neuropa thy that affects sensation from the knees down, but it is no different from before surgery. She can move both legs quite well. Ms. Anguiano will need placement. I recommend aggressive physical therapy and if she is a candidate fo r inpatient rehabilitation, that would be great. Physical Therapy will likely come by today. Hopefu lly, they can stand her at bedside and help her with transfers to a chair. If she can take a few brian ps that would be all the much better to prove that she is ready for inpatient therapy.
[2018-04-12] MEDS: Polyethylene Glycol 3350 17 GM Packet PO SCH ×2 (09:17→21:17)
[2018-04-12] MEDS: Furosemide 40 MG TAB PO SCH ×2 (09:17→14:49)
[2018-04-12] MEDS: Ferrous Sulfate 325 MG TAB PO SCH (09:18)
[2018-04-12] MEDS: Ascorbic Acid 500 mg Chewable Tablet PO SCH ×2 (09:18→21:16)
[2018-04-12] MEDS: Dronedarone HCl 400 MG TAB PO SCH ×2 (09:18→17:42)
[2018-04-12] MEDS: Metoprolol Tartrate 25 MG TAB PO SCH ×2 (09:18→21:17)
[2018-04-12] MEDS: Folic Acid 1 MG TAB PO SCH (09:18)
[2018-04-12] MEDS: Pregabalin 50 MG CAP PO SCH ×2 (09:18→21:13)
[2018-04-12] MEDS: Potassium Chloride 20 MEQ TAB PO SCH ×2 (09:18→21:14)
[2018-04-12] MEDS: Alogliptin 25 MG TAB PO SCH (09:18)
[2018-04-12] MEDS: HumaLOG 300 UNITS/3 ML VIAL SC PRN ×2 (11:50→17:42)
[2018-04-12] MEDS: Amitriptyline HCl 10 MG TAB PO SCH (21:15)
[2018-04-12] MEDS: Citalopram 20 MG TAB PO SCH (21:15)
[2018-04-13] MEDS: Sodium Chloride 0.9% 1,000 ML IV SCH ×2 (03:16→14:33)
[2018-04-13] MEDS: CEFAZOLIN/Water 2 GM/20 ML SYRINGE SLOW IVP SCH ×3 (05:49→21:24)
--- NOTE | 2018-04-13 07:48 | PRG ---
DATE OF SERVICE: 04/13/2018 Ms. Anguiano is 5 days out from lumbar decompression. She had significant deconditioning before surger y and is slow to mobilize. Thankfully, yesterday our colleagues in physical therapy asked her to sta nd at the bedside. She did reasonably well shifting her weight from one side to the other and marchi ng in place. She did not take steps towards the hallway or towards the bathroom, but she did stand. That is an improvement. Ms. Anguiano had her drain pulled over the weekend. She is anticipating a move from the [facility] back to her care facility in [place] or inpatient rehabilitation. She is unsure of where she is going to go. I do not see any fevers recorded. Her other vital signs are reasonably stable. The neurological fun ction in lower extremities is stable. Her incision looks quite good. My plan for Mrs. Anguiano is to get as much physical therapy as possible. I think she would benefit fr om inpatient rehabilitation, and a transfer there seems to make sense and that could happen as early as today. If going back to her care facility in [place] offers her significant chance to do the rapy there, then those arrangements could be made as well. My preference is for rehab.
[2018-04-13] MEDS: Furosemide 40 MG TAB PO SCH ×2 (08:52→14:31)
[2018-04-13] MEDS: Ferrous Sulfate 325 MG TAB PO SCH (08:52)
[2018-04-13] MEDS: Dronedarone HCl 400 MG TAB PO SCH ×2 (08:53→18:19)
[2018-04-13] MEDS: Pregabalin 50 MG CAP PO SCH ×2 (08:53→21:13)
[2018-04-13] MEDS: Potassium Chloride 20 MEQ TAB PO SCH ×2 (08:53→21:13)
[2018-04-13] MEDS: Metoprolol Tartrate 25 MG TAB PO SCH ×2 (08:54→21:39)
[2018-04-13] MEDS: Ascorbic Acid 500 mg Chewable Tablet PO SCH ×2 (08:55→21:11)
[2018-04-13] MEDS: Alogliptin 25 MG TAB PO SCH (08:55)
[2018-04-13] MEDS: Folic Acid 1 MG TAB PO SCH (08:55)
[2018-04-13] MEDS: Polyethylene Glycol 3350 17 GM Packet PO SCH ×2 (08:58→21:39)
--- NOTE | 2018-04-13 09:23 | PDOC.FM ---
- Subjective Subjective: Patient states she stood yesterday. She also complains of neck itching. She otherwise denies issue with fever, pain, SOB. She is tolerating food and having BM. She state that she would be going to rehab soon. - Objective MAR Reviewed: Yes Vital Signs & Weight: Vital Signs (12 hours) Temp Pulse Resp BP Pulse Ox 04/13/18 07:53 97.6 F 68 18 121/71 95 04/13/18 03:49 97.7 F 62 14 113/69 94 L 04/13/18 00:08 97.8 F 59 L 16 112/59 L 96 04/12/18 21:35 97.8 F 60 14 112/66 99 Weight Admit Weight 99 kg Weight 99 kg I&O: 04/12/18 04/13/18 04/14/18 06:59 06:59 06:59 Intake Total 1950 1710 Output Total 400 Balance 1550 1710 Result Diagrams: 04/09/18 04:25 04/09/18 04:25 <Juliano Ramon - Last Filed: 04/13/18 09:21> - Objective Vital Signs & Weight: Vital Signs (12 hours) Temp Pulse Resp BP Pulse Ox 04/13/18 07:53 97.6 F 68 18 121/71 95 04/13/18 03:49 97.7 F 62 14 113/69 94 L 04/13/18 00:08 97.8 F 59 L 16 112/59 L 96 Weight Admit Weight 99 kg Weight 99 kg I&O: 04/12/18 04/13/18 04/14/18 06:59 06:59 06:59 Intake Total 1950 1710 Output Total 400 Balance 1550 1710 Result Diagrams: 04/09/18 04:25 04/09/18 04:25 <Brain Jaramillo - Last Filed: 04/13/18 10:30> Phys Exam - Physical Examination Constitutional: NAD HEENT: moist MMs Neck: supple Respiratory: no wheezing, no rales, no rhonchi Cardiovascular: RRR 1/6 systolic murmur Gastrointestinal: soft, non-tender, no distention, positive bowel sounds Musculoskeletal: no edema Neurological: non-focal Still limited mobility in legs but better then initial Lymphatic: no nodes Psychiatric: normal affect Deviation from normal: WC picture shows possible sacral ulcer devloping <Juliano Ramon - Last Filed: 04/13/18 09:21> Dx/Plan (1) Lumbar stenosis Code(s): M48.061 - SPINAL STENOSIS, LUMBAR REGION WITHOUT NEUROGENIC JAMES Status: Acute Plan: Plan for patient to continue PT. Dispo to inpatient rehab likely based on Neurosurg note. Patient pain under control. Patient strongly advised to work on mobilization today as she has a developign sacral ulcer (2) CAD (coronary artery disease) Code(s): I25.10 - ATHSCL HEART DISEASE OF [place] CORONARY ARTERY W/O ANG PCTRS Status: Chronic Plan: Chronic issue, at this time stable. Continue home metoprolol and lasix. (3) CKD (chronic kidney disease) stage 3, GFR 30-59 ml/min Status: Chronic Plan: Chronic issue. Has been at her baseline this year for the last two check. Will hold off on future BMP check as of this time. (4) COPD (chronic obstructive pulmonary disease) Status: Chronic Plan: Not having increased O2 requirement or symptoms. Continue prn duoneb. (5) Diabetes type 2, controlled Code(s): E11.9 - TYPE 2 DIABETES MELLITUS WITHOUT COMPLICATIONS Status: Chronic Plan: Glucose well controlled during past 24 hour. Has not required SSI Plan to continue home medication. (6) Hypertension Code(s): I10 - ESSENTIAL (PRIMARY) HYPERTENSION Status: Chronic Plan: No HTN episode. Continue home med (7) Paroxysmal atrial fibrillation Code(s): I48.0 - PAROXYSMAL ATRIAL FIBRILLATION Status: Chronic Plan: No symptoms of afib. Continue home metoprolol and multaq. - Plan Plan: 1. Ucx result found presumptive pseudomonas, but less then 10,000 CFU. Does not represent a UTI. <YennyJuliano Mattie - Last Filed: 04/13/18 09:21> Attending Addendum - Attending Addendum Date/Time: 04/13/18 1027 I personally evaluated the patient and discussed the management with Dr. Ramon. I agree with and repeated the History, Examination, Assessment and Plan documented above with any addition or exceptions noted below. Doing very well this AM. Has gotten out of bed and stood multiple times. Continue work with PT and awaiting placement. Continue home medications, will have to be observant for any orthostasis as she continues treatment. Feel +UCx asymptomatic bacteriuria with absolutely no symptoms. DVT ppx per NSx. <Brain Jaramillo - Last Filed: 04/13/18 10:30>
--- NOTE | 2018-04-13 09:27 | PQF ---
DATE: 04-13-18 ATTN: DR. SANTOSH PETERSEN Please exercise your independent, professional judgment in responding to the clarification form. Clinical indicators are provided on the bottom of this form for your review Please check appropriate box(s): [ ] UTI please specify if due to or related to (as applicable): [ ] Indwelling catheter [ ] Unable to determine etiology [ ] Contaminated urine specimen without UTI [ X ] Other diagnosis: Not UTI, urine culture shows less then 10,000 CFU and patient asymptomatic [ ] Unable to determine In addition, please specify: Present on Admission (POA): [ ] Yes [ ] No [ ] Unable to determine For continuity of documentation, please document condition throughout progress notes and discharge summary. Thank You. CLINICAL INDICATORS - SIGNS / SYMPTOMS / LABS URINE: 04-11-18: URINE BLOOD: SMALL H UR LEUKOCYTE ESTERASE LARGE H URINE WBC: GREATER THAN 50 - TNTC H HYALINE CASTS: 7-10 HYALINE CASTS H NURSE ASSESSMENT 04-08-18: BELL INDWELLING CATH TEMP: 04-10-18: 100.8 100.3 99.8 RISK FACTORS: NURSE ASSESSMENT 04-08-18: BELL INDWELLING CATH TREATMENT: (MAR) ANCEF, IVF (This form is maintained as a part of the permanent medical record) 2014 [employer]. All Rights Reserved DANIEL [email or web address] [phone] Attending addendum: asymptomatic bacteriuria. Likely present on admission. Do not feel fever is related at all to urinary tract infection but more likely secondary to her surgical case. CHEMA
[2018-04-13] MEDS ORDERED: Insulin Regular 300 UNITS/3 ML VIAL ONE (17:08)
[2018-04-13] MEDS: HumaLOG 300 UNITS/3 ML VIAL SC PRN ×2 (18:14→22:17)
[2018-04-13] MEDS: traMADol HCl 50 MG TAB PO PRN (18:53)
[2018-04-13] MEDS: Citalopram 20 MG TAB PO SCH (21:11)
[2018-04-13] MEDS: Amitriptyline HCl 10 MG TAB PO SCH (21:13)
[2018-04-13] MEDS: Hydrocortisone 1% Cream 1.5 GM Packet TOP SCH (21:39)
[2018-04-14] MEDS: CEFAZOLIN/Water 2 GM/20 ML SYRINGE SLOW IVP SCH ×3 (06:34→23:53)
[2018-04-14] MEDS: Sodium Chloride 0.9% 1,000 ML IV SCH ×2 (07:09→23:53)
--- NOTE | 2018-04-14 07:09 | PRG ---
DATE OF SERVICE: 04/14/2018 I saw Ms. Anguiano in her hospital room this morning. She stood with therapy yesterday and took steps towards the threshold into the hallway. She did not make it out of the room, however. This is progr ess. Vital signs are stable overnight. Her neurological examination is reassuring. My plan is to h ave Ms. Anguiano considered for inpatient rehabilitation with a fallback plan of returning to the [facility] from whence she came.
[2018-04-14] MEDS: Folic Acid 1 MG TAB PO SCH (08:17)
[2018-04-14] MEDS: Pregabalin 50 MG CAP PO SCH ×2 (08:17→20:30)
[2018-04-14] MEDS: Ascorbic Acid 500 mg Chewable Tablet PO SCH ×2 (08:18→20:31)
[2018-04-14] MEDS: Potassium Chloride 20 MEQ TAB PO SCH ×2 (08:18→20:31)
[2018-04-14] MEDS: Metoprolol Tartrate 25 MG TAB PO SCH ×2 (08:19→20:58)
[2018-04-14] MEDS: Ferrous Sulfate 325 MG TAB PO SCH (08:19)
[2018-04-14] MEDS: Polyethylene Glycol 3350 17 GM Packet PO SCH ×2 (08:20→20:58)
[2018-04-14] MEDS: Alogliptin 25 MG TAB PO SCH (08:20)
[2018-04-14] MEDS: Hydrocortisone 1% Cream 1.5 GM Packet TOP SCH ×2 (08:20→20:58)
[2018-04-14] MEDS: Dronedarone HCl 400 MG TAB PO SCH ×2 (08:20→16:58)
[2018-04-14] MEDS: Furosemide 40 MG TAB PO SCH ×2 (08:20→14:02)
--- NOTE | 2018-04-14 08:31 | PDOC.FM ---
- Subjective Subjective: Patient complains about her back itching. Hydrocortisone cream was started yesterday which help but does not fully resolve it. - Objective MAR Reviewed: Yes Vital Signs & Weight: Vital Signs (12 hours) Temp Pulse Resp BP Pulse Ox 04/14/18 07:58 98.6 F 65 16 127/59 L 92 L 04/14/18 04:11 97.0 F L 64 16 112/53 L 94 L 04/13/18 23:22 98.1 F 63 18 110/53 L 96 04/13/18 20:41 98.3 F 68 16 Weight Admit Weight 99 kg Weight 99 kg I&O: 04/13/18 04/14/18 04/15/18 06:59 06:59 06:59 Intake Total 1710 360 Balance 1710 360 Result Diagrams: 04/09/18 04:25 04/09/18 04:25 <Juliano Ramon - Last Filed: 04/14/18 09:21> - Objective Vital Signs & Weight: Vital Signs (12 hours) Temp Pulse Resp BP Pulse Ox 04/14/18 11:54 98.0 F 61 16 111/54 L 95 04/14/18 08:52 98.6 F 65 16 04/14/18 07:58 98.6 F 65 16 127/59 L 92 L 04/14/18 04:11 97.0 F L 64 16 112/53 L 94 L Weight Admit Weight 99 kg Weight 99 kg I&O: 04/13/18 04/14/18 04/15/18 06:59 06:59 06:59 Intake Total 1710 360 Balance 1710 360 Result Diagrams: 04/09/18 04:25 04/09/18 04:25 <Brain Jaramillo - Last Filed: 04/14/18 12:08> Phys Exam - Physical Examination Constitutional: NAD HEENT: moist MMs Neck: no nodes, supple Respiratory: no wheezing, no rales, no rhonchi, clear to auscultation bilateral Cardiovascular: RRR 2/6 systolic murmur heard from before Gastrointestinal: soft, no distention Musculoskeletal: no edema Neurological: non-focal, moves all 4 limbs Lymphatic: no nodes Psychiatric: normal affect Skin: no rash -: No rash seen on upper back where patient had itching. Mildly dry skin <Ly,Juliano M - Last Filed: 04/14/18 09:21> Dx/Plan (1) Lumbar stenosis Code(s): M48.061 - SPINAL STENOSIS, LUMBAR REGION WITHOUT NEUROGENIC JAMES Status: Acute Plan: Plan for patient to continue PT. Dispo to inpatient rehab likely based on Neurosurg note. Patient pain under control. Discussed with Neurosurgery on anticoagulation, they recomment no blood thinners for 2 weeks post op. Patient strongly advised to work on mobilization today as she has a developing sacral ulcer (2) CAD (coronary artery disease) Code(s): I25.10 - ATHSCL HEART DISEASE OF [place] CORONARY ARTERY W/O ANG PCTRS Status: Chronic Plan: Chronic issue, at this time stable. Continue home metoprolol and lasix. (3) CKD (chronic kidney disease) stage 3, GFR 30-59 ml/min Status: Chronic Plan: Chronic issue. Has been at her baseline this year for the last two check. Will hold off on future BMP check as of this time. (4) COPD (chronic obstructive pulmonary disease) Status: Chronic Plan: Not having increased O2 requirement or symptoms. Patient has not needed duoneb. Continue prn duoneb. (5) Diabetes type 2, controlled Code(s): E11.9 - TYPE 2 DIABETES MELLITUS WITHOUT COMPLICATIONS Status: Chronic Plan: Glucose well controlled during past 24 hour. Has not required SSI Plan to continue home medication. (6) Hypertension Code(s): I10 - ESSENTIAL (PRIMARY) HYPERTENSION Status: Chronic Plan: No HTN episode. Continue home med (7) Paroxysmal atrial fibrillation Code(s): I48.0 - PAROXYSMAL ATRIAL FIBRILLATION Status: Chronic Plan: No symptoms of afib. Continue home metoprolol and multaq. (8) Generalized pruritus Code(s): L29.9 - PRURITUS, UNSPECIFIED Status: Acute Plan: No obvious skin lesion seen on upper back where itching is localized. Less then 1 day of hydrocortisone cream, so will continue with it at this time. <Juilano Ramon M - Last Filed: 04/14/18 09:21> Attending Addendum - Attending Addendum Date/Time: 04/14/18 8172 I personally evaluated the patient and discussed the management with Dr. Ramon. I agree with and repeated the History, Examination, Assessment and Plan documented above with any addition or exceptions noted below. Continues to do well and work with PT. No cp/sob/n/v/f/c. Exam reassuring. Await placement. <Brain Jaramillo - Last Filed: 04/14/18 12:08>
[2018-04-14] MEDS: HumaLOG 300 UNITS/3 ML VIAL SC PRN ×3 (12:15→20:38)
[2018-04-14] MEDS: Amitriptyline HCl 10 MG TAB PO SCH (20:31)
[2018-04-14] MEDS: Citalopram 20 MG TAB PO SCH (20:31)
[2018-04-14 21:13] VITALS: BP 110/61; TEMP 98.5
== END 2018-04-14 21:10 | DRG 516 ==
LOC: SDC 10:37 → SURG B 15:10
PROVIDERS: ADMIT Neurological Surgery; ATTEND Neurological Surgery
PROC: 01NB0ZZ Release Lumbar Nerve, Open Approach (ICD-10-PCS; principal; 2018-04-08)
DX: M48.062 Spinal stenosis, lumbar region with neurogenic claudication (principal); I13.0 Hypertensive heart and chronic kidney disease with heart failure and stage 1 through stage 4 chronic kidney disease, or unspecified chronic kidney disease; I50.32 Chronic diastolic (congestive) heart failure; N18.3 Chronic kidney disease, stage 3 (moderate); M19.90 Unspecified osteoarthritis, unspecified site; K21.9 Gastro-esophageal reflux disease without esophagitis; J44.9 Chronic obstructive pulmonary disease, unspecified; F41.9 Anxiety disorder, unspecified; I25.10 Atherosclerotic heart disease of native coronary artery without angina pectoris; R50.9 Fever, unspecified; E11.22 Type 2 diabetes mellitus with diabetic chronic kidney disease; I12.9 Hypertensive chronic kidney disease with stage 1 through stage 4 chronic kidney disease, or unspecified chronic kidney disease; Z79.84 Long term (current) use of oral hypoglycemic drugs; E66.9 Obesity, unspecified; I48.0 Paroxysmal atrial fibrillation; L29.9 Pruritus, unspecified; E11.42 Type 2 diabetes mellitus with diabetic polyneuropathy; E87.6 Hypokalemia; Z96.652 Presence of left artificial knee joint; Z68.33 Body mass index [BMI] 33.0-33.9, adult
CPT/HCPCS: 36415; 36416; 76001; 80048; 81001; 85025; 85610; 85730; 87086; 93005; 93010; 93970; A4216; G8978-GP-CM; G8979-GP-CK; G8987-GO-CL; G8988-GO-CK; J0131; J0670; J1170; J1815; J2001; J2405; J2704; J2765; J3010; J3370; J3490; P9045

== ENCOUNTER 2018-04-21 11:21 | Outpatient (CLI) | payer MEDICARE, MEDICAID ==
--- NOTE | 2018-04-21 12:17 | CT ---
CT CHEST WITHOUT CONTRAST: Date: 04/21/18 HISTORY: Shortness of breath, left infiltrate. FINDINGS: Absence of IV contrast reduces the sensitivity of exam for evaluation of mediastinal, hilar, and vasc ular structures. There are vascular calcifications without evidence of aneurysmal dilatation of the thoracic aorta. No pericardial or right side pleural effusions are seen. There is a small left pleural effusion with ad jacent infiltrate/atelectatic change. There is mild dependent change of the lung base. No pneumothora diane or lung masses are seen. There are degenerative changes in the spine. Incidental note is made of a 1.0 cm low density lesion in the inferior pole of the right lobe of the thyroid gland. This would be better evaluated with an ultrasound. IMPRESSION: Small left pleural effusion with adjacent infiltrate/atelectatic change. POS: JODEE
== END 2018-04-21 11:22 | disposition home or self-care (01) ==
LOC: CT 11:21
PROVIDERS: ATTEND Internal Medicine
DX: J44.9 Chronic obstructive pulmonary disease, unspecified (principal); K21.9 Gastro-esophageal reflux disease without esophagitis; M19.90 Unspecified osteoarthritis, unspecified site; E66.9 Obesity, unspecified; D64.9 Anemia, unspecified; E10.8 Type 1 diabetes mellitus with unspecified complications; J90 Pleural effusion, not elsewhere classified; Z98.890 Other specified postprocedural states
CPT/HCPCS: 71250

== ENCOUNTER 2019-02-10 14:40 | Inpatient (IN) | payer MEDICARE, MEDICAID ==
[2019-02-10 15:13] LABS: #Lymphocytes 0.5 thou/uL (1.20-3.40); #Monocytes 0.5 thou/uL (0.11-0.59); #Neutrophils 8.3 thou/uL (1.40-6.50); %Basophils 0.2 % (0.0-1.0); %Eosinophils 0.5 % (0.0-10.0); %Lymphocytes 5.8 % (21.0-51.0); %Neutrophils 88.7 % (42.0-75.0); Hemoglobin 11.2 g/dL (12.0-16.0); Mean Corpuscular HGB CONC 32.9 g/dL (32.0-36.0); Mean Corpuscular Hemoglobin 33.2 pg (27.0-31.0); Mean Platelet Volume 6.9 fL (7.4-10.4); Platelet Count 105 thou/uL (130-400); RBC Distribution Width 12.7 % (11.5-14.5); Red Blood Cell (RBC) Count 3.37 mill/uL (4.20-5.40); White Blood Cell (WBC) Count 9.4 thou/uL (4.8-10.8)
[2019-02-10] MEDS ORDERED: Magnesium 2 GM/50 ML BAG (IN WATER) ONE (15:17)
[2019-02-10] MEDS ORDERED: methylPREDNISolone Sod Succ/PF 125 MG/2 ML VIAL ONE (15:17)
--- NOTE | 2019-02-10 15:26 | RAD ---
RADIOGRAPH CHEST 1 VIEW: Date: 02/10/2019. Time: 3:02 p.m. HISTORY: An 83-year-old female with dyspnea. COMPARISON: 05/04/2018. FINDINGS: Again noted is the elevated left hemidiaphragm. Again noted is the cardiomegaly and pulmonary venous congestion. Subtle, mild area of irregularly shaped increased density at the right lower lung zone appears to be new since the prior study. No pulmonary edema. Cardiomegaly. No pneumothorax. No ot her interval change. IMPRESSION: 1. Questionable new small infiltrate at right lower lung zone. Recommend followup. 2. Cardiomegaly and pulmonary venous congestion. 3. Chronically elevated left hemidiaphragm. JN [] POS: [facility]
[2019-02-10 15:34] LABS: ALT (SGPT) 10 U/L (8-55); AST (SGOT) 12 U/L (5-34); Alkaline Phosphatase 88 U/L (40-150); Anion Gap 15 mmol/L (10-20); BUN (Urea Nitrogen) 33 mg/dL (9.8-20.1); Bilirubin, Total 0.6 mg/dL (0.2-1.2); Calc. Creatinine Clearance 0 mL/min (70-130); Calcium 8.8 mg/dL (7.8-10.44); Carbon Dioxide 29 mmol/L (23-31); Chloride 96 mmol/L (98-107); Estimated GFR-MDRD 26; Globulin 3.3 g/dL (2.4-3.5); Glucose 241 mg/dL (83-110); Potassium 5.2 mmol/L (3.5-5.1); Protein, Total 7.3 g/dL (6.0-8.3); Sodium 135 mmol/L (136-145)
[2019-02-10] MEDS ORDERED: Piperacillin/Tazobactam 4.5 GM VIAL ONE (17:28)
[2019-02-10] MEDS ORDERED: Dextrose 50% Abboject 50 ML SYRINGE SLOW IVP PRN (20:06)
[2019-02-10] MEDS ORDERED: Senokot S 8.6-50 MG TAB PO PRN (20:06)
[2019-02-10] MEDS ORDERED: hydrALAZINE 20 MG/ML VIAL SLOW IVP PRN (20:06)
[2019-02-10] MEDS ORDERED: HumaLOG 300 UNITS/3 ML VIAL SC PRN (20:06)
[2019-02-10] MEDS ORDERED: Dextrose 5% in Water 1,000 ML IV PRN (20:06)
[2019-02-10] MEDS ORDERED: Pharmacy to Dose 1 EACH : VANC IVPB PRN (20:28)
[2019-02-10 20:42] LABS: Lactic Acid 2.2 mmol/L (0.5-2.2)
[2019-02-10] MEDS ORDERED: Vancomycin HCl 1 GM in Premix Bag 1 BAG IVPB SCH (21:15)
[2019-02-10] MEDS: Heparin 5,000 UNITS/ML VIAL SC SCH (21:32)
[2019-02-10] MEDS: Metoprolol Tartrate 25 MG TAB PO SCH (21:32)
--- NOTE | 2019-02-11 00:57 | HP ---
PRIMARY CARE PHYSICIAN: Annamarie Cervantes MD. CHIEF COMPLAINT: "I was shaking and I couldn't stop." HISTORY OF PRESENT ILLNESS: Ms. Anguiano is a very pleasant 83-year-old female, who has a history of congestive heart failure and with chronic diastolic heart failure as well as COPD. She resides at the [facility] and says that this morning she woke up and started shaking and could not stop. She normally has some essential tremor, but this was much worse than her usual tremors. She says that she was also feeling a little bit chilled and has been having some headache as well as neck pain and this is the reason she came to the ER. She was evaluated in the ER and chest x-ray was done and it was found that she has evidence of a possible right middle lobe infiltrate and when asked if she has had any cough or congestion, she denies this. She also denies having chest pain. She denies feeling short of breath, but when I mentioned pneumonia, she says I guess it never went away and then she says that she was diagnosed in the custodial with pneumonia about 4 to 5 weeks ago. At that time, her symptoms were just not feeling well and she was coughing. She says they gave her some antibiotics and treated her there and she started to feel better, not feeling as weak and tired, but now as previously stated her only symptom is shaking a lot. It was also noted that her O2 saturation had dropped down into the 70s and this was another reason she was sent over. REVIEW OF SYSTEMS: All systems were reviewed and are negative except for that mentioned in the history of present illness. PAST MEDICAL HISTORY: Significant for chronic diastolic heart failure, atrial fibrillation, chronic kidney disease, COPD, coronary artery disease, diabetes mellitus, hyperlipidemia, hypothyroidism, and peripheral neuropathy. PAST SURGICAL HISTORY: She has had an appendectomy, cholecystectomy, carpal tunnel syndrome, hysterectomy, and left knee surgery. ALLERGIES: TO ASPIRIN AND CODEINE. SOCIAL HISTORY: She is . She resides at the [facility]. She is a nonsmoker. She occasionally drinks wine. She has 3 children. She has paperwork that says that she is a DNR. However, she says that she would want to be a full code while in the hospital. She says she would at least want a try at CPR, but if it was futile and it looked like she was "going to be a vegetable then she would want treatment to stop." Therefore, this would be a full code. FAMILY HISTORY: Significant for diabetes mellitus, hypertension, and congestive heart failure. MEDICATIONS: Include: 1. Tylenol No. 3. 2. Tramadol 50 mg p.r.n. 3. Zofran 4 mg as needed. 4. Celexa 10 mg in the morning, 20 in the evening. 5. Iron sulfate 325 mg daily. 6. Metformin 500 mg daily. 7. Mysoline 25 mg daily. 8. Pantoprazole 20 mg daily. 9. Simvastatin 5 mg at bedtime. 10. Zinc sulfate 220 mg daily. 11. Potassium chloride 20 mEq daily. 12. Furosemide 20 mg twice a day. 13. Lyrica 50 mg twice a day. 14. Metoprolol 25 mg one-half tablet twice a day. 15. Multaq 400 mg twice a day. PHYSICAL EXAMINATION: GENERAL: She is alert and oriented. She appears to be in no acute distress. She is well kempt, but she is chronically ill in appearance and cooperative with the exam. VITAL SIGNS: Blood pressure was 129/62, heart rate 80, respiratory rate of 22, temperature is 99.5. HEENT: Pupils are equal, round, and reactive to light. Extraocular muscles are intact. Her sclerae are anicteric. Throat; no erythema, no exudates. NECK: There is no adenopathy, no bruits. LUNGS: She has rales in the right base. No wheezing. No rhonchi. CARDIOVASCULAR: She has a normal S1 and S2. There is no S3 or S4. No murmurs, clicks, or rubs. ABDOMEN: Distended. It is tympanic to percussion. It is nontender. She has positive bowel sounds. There is no rebound or guarding. EXTREMITIES: She has 1+ to 2+ pitting edema bilaterally. There are no joint effusions. NEUROLOGICAL: Her cranial nerves are intact and her muscle strength is 5/5 in her upper extremities; lower extremities it is 5/5, but slightly weaker and it is nonfocal. SKIN AND INTEGUMENT: She does have some bruising on the lower extremities and kind of a blotchy-like appearance off and on on the calves and otherwise no other significant skin lesions. LABORATORY RESULTS: White blood cell count 9.4, hemoglobin 11.2, hematocrit is 34.1, and platelet count was 105. Sodium 135, potassium 5.2, chloride 96, BUN of 33, creatinine 1.86, glucose 244. She had a lactic acid of 2.3. IMAGING STUDIES: On her chest x-ray, film is slightly rotated. Heart size appears to be normal, mild cardiomegaly and there is haziness in the right lower lobe, likely representing an infiltrate on the left. It is a possible pleural effusion as the diaphragm is obscured and elevated and also possibly some increase in the pulmonary vascular markings. ASSESSMENT: This is a pleasant 83-year-old female who presents to the emergency room with appears to be shaking chills. She has an elevated lactic acid and radiographic evidence of an infiltrate. She also resides in a custodial facility. Therefore, she likely has a healthcare-acquired pneumonia. She also appears to have some mild volume overload as well and the patient admits that she had been taken off one of her diuretics while she was in the nursing facility and only recently restarted and this likely has left her with some residual volume overload. 1. Acute respiratory failure with hypoxemia. This is likely as a result of the combination of pneumonia and an exacerbation of her congestive heart failure, diastolic type. She will be placed on IV antibiotics to cover for healthcare-associated organisms, DuoNebs as needed. Blood culture should have been done from the ER, if not, we will obtain these. 2. For [id number] diastolic heart failure, we will place her on IV Lasix overnight and reassess her in the morning. Likely, this can be changed to oral. 3. Diabetes mellitus. We will just place her on a sliding scale insulin right now. Her creatinine is a little bit elevated for the use of metformin. We may need to reassess this at discharge. She will also have a sliding scale made available. 4. Chronic obstructive pulmonary disease. This appears to be stable. We will continue her home medications as well as DuoNeb p.r.n. 5. Atrial fibrillation. Clinically, she is in sinus. I did not see an EKG, but her heart rate is stable and regular. We may go ahead and get a baseline EKG during this hospital stay, otherwise, she will be placed on deep venous thrombosis and gastrointestinal prophylaxis. Job ID: [id number]
[2019-02-11] MEDS: Piperacillin/Tazobactam 2.25 GM in Sodium Chloride 0.9% 100 ML IVPB SCH ×3 (02:55→15:48)
[2019-02-11] MEDS: Furosemide 40 MG/4 ML VIAL SLOW IVP SCH ×2 (05:53→13:30)
[2019-02-11] MEDS: HumaLOG 300 UNITS/3 ML VIAL SC PRN ×2 (05:53→13:30)
[2019-02-11 06:18] LABS: #Lymphocytes 0.5 thou/uL (1.20-3.40); #Monocytes 0.2 thou/uL (0.11-0.59); #Neutrophils 7.1 thou/uL (1.40-6.50); %Basophils 0.2 % (0.0-1.0); %Eosinophils 0.1 % (0.0-10.0); %Lymphocytes 6.8 % (21.0-51.0); %Monocytes 2.4 % (0.0-10.0); %Neutrophils 90.5 % (42.0-75.0); Hemoglobin 9.9 g/dL (12.0-16.0); Mean Corpuscular HGB CONC 33.7 g/dL (32.0-36.0); Mean Platelet Volume 7.3 fL (7.4-10.4); Platelet Count 98 thou/uL (130-400); RBC Distribution Width 12.4 % (11.5-14.5); Red Blood Cell (RBC) Count 2.91 mill/uL (4.20-5.40); White Blood Cell (WBC) Count 7.9 thou/uL (4.8-10.8)
[2019-02-11 06:41] LABS: Anion Gap 16 mmol/L (10-20); BUN (Urea Nitrogen) 31 mg/dL (9.8-20.1); Calc. Creatinine Clearance 39 mL/min (70-130); Calcium 8.4 mg/dL (7.8-10.44); Carbon Dioxide 25 mmol/L (23-31); Chloride 96 mmol/L (98-107); Estimated GFR-MDRD 29; Glucose 343 mg/dL (83-110); Potassium 4.7 mmol/L (3.5-5.1); Sodium 132 mmol/L (136-145)
[2019-02-11] MEDS: Dronedarone HCl 400 MG TAB PO SCH ×2 (07:50→15:50)
[2019-02-11] MEDS: Folic Acid 1 MG TAB PO SCH (07:51)
[2019-02-11] MEDS: Metoprolol Tartrate 25 MG TAB PO SCH ×2 (07:52→19:53)
[2019-02-11] MEDS: Heparin 5,000 UNITS/ML VIAL SC SCH ×3 (08:04→19:56)
[2019-02-11] MEDS: Potassium Chloride 20 MEQ TAB PO SCH (15:49)
[2019-02-11] MEDS: Acetaminophen 325 MG TAB PO PRN (15:51)
--- NOTE | 2019-02-11 17:42 | PDOC.PN ---
- Subjective Encounter Start Date: 02/11/19 Encounter Start Time: 17:40 Ms. Anguiano was seen today in follow-up of Pneumonia. She says she is feeling better. No new complaints. She is breathing better. - Objective Resuscitation Status - Order Detail: 02/10/19 18:00 Resuscitation Status Routine Resuscitation Status: FULL: Full Resuscitation MAR Reviewed: Yes Vital Signs & Weight: Vital Signs (12 hours) Temp Pulse Resp BP Pulse Ox 02/11/19 16:27 98.0 F 72 20 118/65 96 02/11/19 14:26 69 16 02/11/19 12:26 98.4 F 77 18 116/62 97 02/11/19 08:03 94 L 02/11/19 08:01 70 16 02/11/19 07:56 97.5 F L 70 22 H 153/72 H 97 Weight Weight 216 lb 0.848 oz I&O: 02/10/19 02/11/19 02/12/19 06:59 06:59 06:59 Intake Total 1050 Balance 1050 Result Diagrams: 02/11/19 05:35 02/11/19 05:35 Additional Labs: Accuchecks 02/11/19 02/11/19 02/11/19 16:30 11:51 05:14 POC Glucose 176 H 267 H 327 H 02/10/19 19:48 POC Glucose 386 H Phys Exam - Physical Examination HEENT: PERRLA + rales at the right base Cardiovascular: RRR, no significant murmur, no rub Gastrointestinal: soft, non-tender, no distention, positive bowel sounds Musculoskeletal: edema present Dx/Plan (1) Healthcare-associated pneumonia Code(s): J18.9 - PNEUMONIA, UNSPECIFIED ORGANISM Status: Acute (2) Acute on chronic diastolic heart failure Code(s): I50.33 - ACUTE ON CHRONIC DIASTOLIC (CONGESTIVE) HEART FAILURE Status : Acute (3) Diabetes type 2, controlled Code(s): E11.9 - TYPE 2 DIABETES MELLITUS WITHOUT COMPLICATIONS Status: Chronic (4) Hypertension Code(s): I10 - ESSENTIAL (PRIMARY) HYPERTENSION Status: Chronic - Plan * Healthcare Associated Pneumonia- continue Vancomycin and Zosyn * Acute on chronic diastolic heart failure- will change Lasix to p.o., and will check Echo * DM- blood glucose is stable * HTN- blood pressure is stable .
[2019-02-11] MEDS ORDERED: traMADol HCl 50 MG TAB PO PRN (17:44)
[2019-02-11] MEDS: Citalopram 20 MG TAB PO SCH (19:52)
[2019-02-11] MEDS: Primidone 50 MG TAB PO SCH (19:53)
[2019-02-11] MEDS: Simvastatin 5 MG TAB PO SCH (19:54)
[2019-02-11] MEDS: Furosemide 20 MG TAB PO SCH (19:55)
[2019-02-11] MEDS: Vancomycin HCl 1 GM in Premix Bag 1 BAG IVPB SCH (19:57)
[2019-02-12] MEDS: Piperacillin/Tazobactam 2.25 GM in Sodium Chloride 0.9% 100 ML IVPB SCH ×3 (01:30→17:18)
[2019-02-12] MEDS: HumaLOG 300 UNITS/3 ML VIAL SC PRN (05:48)
[2019-02-12] MEDS: Zinc Sulfate 220 MG CAP PO SCH (07:49)
[2019-02-12] MEDS: Dronedarone HCl 400 MG TAB PO SCH ×2 (07:49→17:17)
[2019-02-12] MEDS: Folic Acid 1 MG TAB PO SCH (07:50)
[2019-02-12] MEDS: Metoprolol Tartrate 25 MG TAB PO SCH ×2 (07:50→20:56)
[2019-02-12] MEDS: Potassium Chloride 20 MEQ TAB PO SCH ×2 (07:50→17:17)
[2019-02-12] MEDS: Furosemide 20 MG TAB PO SCH ×2 (07:51→20:53)
[2019-02-12] MEDS: Heparin 5,000 UNITS/ML VIAL SC SCH ×3 (07:51→20:55)
[2019-02-12] MEDS: Acetaminophen 325 MG TAB PO PRN ×2 (07:54→21:07)
[2019-02-12] MEDS ORDERED: Spiriva 18 MCG CAP (Box of 5 Caps) INH SCH (09:00)
--- NOTE | 2019-02-12 13:06 | PDOC.PN ---
- Subjective Encounter Start Date: 02/12/19 Encounter Start Time: 13:04 Patient seen and examined. No new complaints. No overnight events. sob is better. no fever or chills. No N/V. had BM this am. - Objective Resuscitation Status - Order Detail: 02/10/19 18:00 Resuscitation Status Routine Resuscitation Status: FULL: Full Resuscitation MAR Reviewed: Yes Vital Signs & Weight: Vital Signs (12 hours) Temp Pulse Resp BP Pulse Ox 02/12/19 12:37 62 20 92 L 02/12/19 08:00 95 02/12/19 07:34 97.9 F 60 22 H 125/70 95 02/12/19 07:09 96 02/12/19 07:07 60 16 96 02/12/19 02:44 96 Weight Weight 227 lb I&O: 02/11/19 02/12/19 02/13/19 06:59 06:59 06:59 Intake Total 1050 550 240 Balance 1050 550 240 Result Diagrams: 02/11/19 05:35 02/11/19 05:35 Additional Labs: Accuchecks 02/12/19 02/12/19 02/11/19 11:59 05:15 22:42 POC Glucose 220 H 209 H 242 H 02/11/19 16:30 POC Glucose 176 H Phys Exam - Physical Examination Constitutional: NAD HEENT: sclera anicteric Neck: supple Respiratory: no wheezing rales present Cardiovascular: RRR, no significant murmur Gastrointestinal: soft Musculoskeletal: edema present Neurological: non-focal, moves all 4 limbs Psychiatric: normal affect, A&O x 3 Skin: no rash Dx/Plan (1) Acute on chronic diastolic heart failure Code(s): I50.33 - ACUTE ON CHRONIC DIASTOLIC (CONGESTIVE) HEART FAILURE Status : Acute (2) Healthcare-associated pneumonia Code(s): J18.9 - PNEUMONIA, UNSPECIFIED ORGANISM Status: Acute (3) Acute on chronic heart failure Code(s): I50.9 - HEART FAILURE, UNSPECIFIED Status: Acute (4) GERD (gastroesophageal reflux disease) Code(s): K21.9 - GASTRO-ESOPHAGEAL REFLUX DISEASE WITHOUT ESOPHAGITIS Status: Acute (5) Lumbar stenosis Code(s): M48.061 - SPINAL STENOSIS, LUMBAR REGION WITHOUT NEUROGENIC JAMES Status: Acute (6) Anxiety and depression Code(s): F41.9 - ANXIETY DISORDER, UNSPECIFIED; F32.9 - MAJOR DEPRESSIVE DISORDER, SINGLE EPISODE, UNSPECIFIED Status: Chronic (7) CAD (coronary artery disease) Code(s): I25.10 - ATHSCL HEART DISEASE OF [place] CORONARY ARTERY W/O ANG PCTRS Status: Chronic Comment: (8) COPD (chronic obstructive pulmonary disease) Status: Chronic Qualifiers: Comment: (9) DM2 (diabetes mellitus, type 2) Status: Chronic Qualifiers: Diabetes mellitus complication status: with hyperglycemia (10) Dyslipidemia Code(s): E78.5 - HYPERLIPIDEMIA, UNSPECIFIED Status: Chronic (11) Hypertension Code(s): I10 - ESSENTIAL (PRIMARY) HYPERTENSION Status: Chronic - Plan cont current plan of care, continue antibiotics, PT/OT, social research assistant, DVT proph w/heparin * . continue vanc and zosyn cultures remain negative showing clinical improvement BS elevated and will add lantus 5 units qhs. AM labs BP controlled
[2019-02-12] MEDS: Primidone 50 MG TAB PO SCH (20:51)
[2019-02-12] MEDS: Citalopram 20 MG TAB PO SCH (20:52)
[2019-02-12] MEDS: Simvastatin 5 MG TAB PO SCH (20:53)
[2019-02-12] MEDS: Insulin Glargine 5 UNITS in Pre-Filled Syringe SC SCH (20:55)
[2019-02-12] MEDS: Vancomycin HCl 1 GM in Premix Bag 1 BAG IVPB SCH ×2 (20:56→22:58)
[2019-02-12 21:49] LABS: Vancomycin, Trough 16.8 ug/mL
[2019-02-12] MEDS ORDERED: Vancomycin HCl 1 GM in Premix Bag 1 BAG IVPB SCH (22:00)
[2019-02-13] MEDS: Piperacillin/Tazobactam 2.25 GM in Sodium Chloride 0.9% 100 ML IVPB SCH ×3 (01:48→16:50)
[2019-02-13 06:12] LABS: #Eosinphils 0.1 thou/uL (0.0-0.7); #Lymphocytes 0.9 thou/uL (1.20-3.40); #Monocytes 0.5 thou/uL (0.11-0.59); #Neutrophils 4.4 thou/uL (1.40-6.50); %Basophils 0.3 % (0.0-1.0); %Eosinophils 2.4 % (0.0-10.0); %Lymphocytes 15.3 % (21.0-51.0); %Neutrophils 73.9 % (42.0-75.0); Hemoglobin 9.6 g/dL (12.0-16.0); Mean Corpuscular HGB CONC 32.9 g/dL (32.0-36.0); Mean Corpuscular Hemoglobin 33.3 pg (27.0-31.0); Mean Platelet Volume 6.9 fL (7.4-10.4); Platelet Count 98 thou/uL (130-400); RBC Distribution Width 12.4 % (11.5-14.5); Red Blood Cell (RBC) Count 2.88 mill/uL (4.20-5.40)
[2019-02-13 06:25] LABS: Anion Gap 13 mmol/L (10-20); BUN (Urea Nitrogen) 29 mg/dL (9.8-20.1); Calc. Creatinine Clearance 44 mL/min (70-130); Calcium 8.2 mg/dL (7.8-10.44); Carbon Dioxide 28 mmol/L (23-31); Chloride 98 mmol/L (98-107); Estimated GFR-MDRD 32; Glucose 160 mg/dL (83-110); Potassium 4.3 mmol/L (3.5-5.1); Sodium 135 mmol/L (136-145)
[2019-02-13] MEDS: Zinc Sulfate 220 MG CAP PO SCH (08:10)
[2019-02-13] MEDS: Dronedarone HCl 400 MG TAB PO SCH ×2 (08:10→16:50)
[2019-02-13] MEDS: Heparin 5,000 UNITS/ML VIAL SC SCH ×3 (08:10→20:35)
[2019-02-13] MEDS: Metoprolol Tartrate 25 MG TAB PO SCH ×2 (08:11→20:35)
[2019-02-13] MEDS: Potassium Chloride 20 MEQ TAB PO SCH ×2 (08:11→16:50)
[2019-02-13] MEDS: Furosemide 20 MG TAB PO SCH ×2 (08:11→20:35)
[2019-02-13] MEDS: Folic Acid 1 MG TAB PO SCH (08:11)
--- NOTE | 2019-02-13 11:32 | PDOC.PN ---
- Subjective Encounter Start Date: 02/13/19 Encounter Start Time: 11:30 Patient seen and examined. No new complaints. No overnight events. feeling much better. No sob or chest pain reported. No fever or chills. - Objective Resuscitation Status - Order Detail: 02/10/19 18:00 Resuscitation Status Routine Resuscitation Status: FULL: Full Resuscitation MAR Reviewed: Yes Vital Signs & Weight: Vital Signs (12 hours) Temp Pulse Resp BP Pulse Ox 02/13/19 08:07 98.6 F 70 20 110/67 90 L 02/13/19 08:00 90 L 02/13/19 07:01 96 02/13/19 07:00 103 H 20 93 L 02/13/19 00:19 70 16 90 L Weight Weight 226 lb I&O: 02/12/19 02/13/19 02/14/19 06:59 06:59 06:59 Intake Total 550 990 240 Balance 550 990 240 Result Diagrams: 02/13/19 05:31 02/13/19 05:31 Additional Labs: Accuchecks 02/13/19 02/12/19 02/12/19 05:05 20:20 16:16 POC Glucose 180 H 201 H 202 H 02/12/19 11:59 POC Glucose 220 H Phys Exam - Physical Examination Constitutional: NAD HEENT: sclera anicteric Neck: supple Respiratory: no wheezing, no rales Cardiovascular: no significant murmur Gastrointestinal: soft Musculoskeletal: no edema Neurological: non-focal, moves all 4 limbs Psychiatric: normal affect, A&O x 3 Skin: no rash Dx/Plan (1) Acute on chronic diastolic heart failure Code(s): I50.33 - ACUTE ON CHRONIC DIASTOLIC (CONGESTIVE) HEART FAILURE Status : Acute (2) Healthcare-associated pneumonia Code(s): J18.9 - PNEUMONIA, UNSPECIFIED ORGANISM Status: Acute (3) Acute on chronic heart failure Code(s): I50.9 - HEART FAILURE, UNSPECIFIED Status: Acute (4) GERD (gastroesophageal reflux disease) Code(s): K21.9 - GASTRO-ESOPHAGEAL REFLUX DISEASE WITHOUT ESOPHAGITIS Status: Acute (5) Lumbar stenosis Code(s): M48.061 - SPINAL STENOSIS, LUMBAR REGION WITHOUT NEUROGENIC JAMES Status: Acute (6) Anxiety and depression Code(s): F41.9 - ANXIETY DISORDER, UNSPECIFIED; F32.9 - MAJOR DEPRESSIVE DISORDER, SINGLE EPISODE, UNSPECIFIED Status: Chronic (7) CAD (coronary artery disease) Code(s): I25.10 - ATHSCL HEART DISEASE OF [place] CORONARY ARTERY W/O ANG PCTRS Status: Chronic Comment: (8) COPD (chronic obstructive pulmonary disease) Status: Chronic Qualifiers: Comment: (9) DM2 (diabetes mellitus, type 2) Status: Chronic Qualifiers: Diabetes mellitus complication status: with hyperglycemia (10) Dyslipidemia Code(s): E78.5 - HYPERLIPIDEMIA, UNSPECIFIED Status: Chronic (11) Hypertension Code(s): I10 - ESSENTIAL (PRIMARY) HYPERTENSION Status: Chronic - Plan cont current plan of care, continue antibiotics, PT/OT, older adult social work specialist, DVT proph w/heparin * . will DC Vanc continue Zosyn continue on lasix Echo done EF 55-60% Blood cultures remain negative DC planning monitor labs.
[2019-02-13] MEDS: Primidone 50 MG TAB PO SCH (20:34)
[2019-02-13] MEDS: Citalopram 20 MG TAB PO SCH (20:34)
[2019-02-13] MEDS: Simvastatin 5 MG TAB PO SCH (20:35)
[2019-02-13] MEDS: Insulin Glargine 5 UNITS in Pre-Filled Syringe SC SCH (20:35)
[2019-02-14] MEDS: Piperacillin/Tazobactam 2.25 GM in Sodium Chloride 0.9% 100 ML IVPB SCH ×2 (01:46→08:53)
[2019-02-14] MEDS: HumaLOG 300 UNITS/3 ML VIAL SC PRN ×2 (06:04→13:01)
[2019-02-14] MEDS: Metoprolol Tartrate 25 MG TAB PO SCH (08:52)
[2019-02-14] MEDS: Furosemide 20 MG TAB PO SCH (08:52)
[2019-02-14] MEDS: Potassium Chloride 20 MEQ TAB PO SCH (08:52)
[2019-02-14] MEDS: Heparin 5,000 UNITS/ML VIAL SC SCH (08:53)
[2019-02-14] MEDS: Dronedarone HCl 400 MG TAB PO SCH (08:53)
[2019-02-14] MEDS: Zinc Sulfate 220 MG CAP PO SCH (08:53)
[2019-02-14] MEDS: Folic Acid 1 MG TAB PO SCH (08:53)
[2019-02-14 10:41] VITALS: BMI 38.9
[2019-02-14] MEDS: Acetaminophen 325 MG TAB PO PRN (11:36)
[2019-02-14 12:33] VITALS: BP 145/72; TEMP 98.5
--- NOTE | 2019-02-14 14:58 | PQF ---
CLINICAL DOCUMENTATION IMPROVEMENT CLARIFICATION FORM: ICD-10 Updated PLEASE DO AN ADDENDUM TO THE PROGRESS NOTE WITH ANY DOCUMENTATION UPDATES OR ADDITIONS AND CARRY THROUGH TO DC SUMMARY. THANK YOU. DATE: 02/14/2019 ATTN: Dr. Burleson Please exercise your independent, professional judgment in responding to the clarification form. Clinical indicators are provided on the bottom of this form for your review Please check appropriate box(s): [ ] Empirically treating Gram Negative Pneumonia [ ] Empirically treating Anaerobic Pneumonia [ x ] Pneumonia secondary to (specify organism / underlying disease) _gram + cocci [ ] Pneumonia of unknown etiology [ ] Other diagnosis [ ] Unable to determine In addition, please specify: Present on Admission (POA): [ x ] Yes [ ] No [ ] Unable to determine For continuity of documentation, please document condition throughout progress notes and discharge summary. Thank You. CLINICAL INDICATORS - SIGNS / SYMPTOMS / LABS H&P 02/10: chest x-ray was done and it was found that she has evidence of a possible right middle lobe infiltrate & when asked if she has had any cough or congestion, she denies this, PN 02/13: Healthcare-associated pneumonia. Acute RISKS: H&P 02/10: she says that she was dx in the [facility] with pneumonia about 4 to 5 weeks ago. PMH: Chronic diastolic heart failure, atrial fib, CKD, COPD, CAD, DM. Acute resp. failure w/ hypoxemia. This is likely as a result of the combination of pneumonia and an exac. of her CHF, diastolic type. TREATMENT: Order 02/10: Zosyn 2.25 gm NS 100ml IV Order 02/10 to 02/12: Vancomycin HCL 1 gm IV Thank you, Chacha (This form is maintained as a part of the permanent medical record) 2014 [employer]. All Rights Reserved Chacha Nowak RN, BSN [email or web address] Office: [phone] [facility]
--- NOTE | 2019-02-15 04:42 | DIS ---
DATE OF ADMISSION: 02/10/2019 DATE OF DISCHARGE: 02/14/2019 DISCHARGE DIAGNOSES: 1. Healthcare-associated pneumonia, suspected gram-positive cocci, improved. 2. Acute on chronic hypoxic respiratory failure with chronic oxygen supplementation at 2 to 3 L/minute by nasal cannula. 3. Chronic obstructive pulmonary disease. 4. Chronic diastolic congestive heart failure with ejection fraction of 55% to 60%. 5. Diabetes mellitus type 2. 6. Nonambulatory status. 7. Chronic kidney disease stage 3. CONSULTATIONS: None. PERTINENT LAB AND X-RAY FINDINGS: Creatinine ranged between 1.53 to 1.86. Estimated GFR ranged between 26 to 32. Lactic acid level ranged between 2.2 to 2.3. BNP 175. CBC showed a white blood cell count ranged between 6.0 to 9.4, hemoglobin ranged between 9.6 to 11.2, platelet count ranged between 98 to 105. Blood cultures x2 dated 02/10/2019, showed no growth at 48 hours. Portable chest x-ray dated 02/10/2019, showed question of new infiltrate of the right lower lung zone. Pulmonary vascular congestion noted. 2D transthoracic echocardiogram dated 02/12/2019, showed ejection fraction of 55% to 60%. Mild to moderate left atrial enlargement. HOSPITAL COURSE: The patient was initially admitted after presenting with shaking and rigors and concern for early pneumonia with chest imaging showing small infiltrate of the right lower lung zone. The patient was treated for suspected healthcare-associated pneumonia, initially placed on vancomycin and Zosyn. The patient received general pulmonary supportive management in conjunction with bronchodilator therapy. The patient also continued on oxygen supplementation at 3 L/minute by nasal cannula. The patient also received IV Lasix after mild pulmonary venous congestion noted on initial chest imaging. The patient continued to receive general pulmonary supportive management and stabilized with IV antibiotics and IV Lasix. The patient overall at baseline respiratory functional status with maintaining O2 saturations in the mid to lower 90% range on 2 to 3 L/minute by nasal cannula. Overall, the patient is at baseline functional status prior to discharge. I have examined the patient at the time of discharge and discussed followup instructions. The patient verbalizes understanding and agreement ready for discharge on 02/14/2019. DISCHARGE MEDICATIONS: 1. Fosamax 70 mg p.o. q.7 days. 2. Vitamin C 500 mg p.o. b.i.d. 3. Pulmicort Flexhaler two puffs inhaled b.i.d. 4. Celexa 30 mg p.o. at bedtime. 5. Ferrous sulfate 325 mg p.o. q.a.m. 6. Elda 180 mg p.o. daily. 7. Folic acid 1 mg p.o. daily. 8. Lasix 20 mg p.o. b.i.d. 9. NovoLog sliding scale. 10. Magnesium 200 mg p.o. daily. 11. Metformin 500 mg p.o. q.a.m. 12. Nystatin 500 units p.o. t.i.d. 13. Protonix 20 mg p.o. daily. 14. Potassium chloride 20 mEq p.o. b.i.d. 15. Lyrica 50 mg p.o. b.i.d. 16. Mysoline 25 mg p.o. at bedtime. 17. Zocor 5 mg p.o. at bedtime. 18. Spiriva HandiHaler 18 mcg inhaled daily. 19. Tramadol 25 mg p.o. q.i.d. p.r.n. 20. Zinc sulfate 220 mg p.o. daily. 21. Omnicef 300 mg p.o. b.i.d. x4 days. 22. Multaq 400 mg p.o. b.i.d. 23. Metoprolol tartrate 12.5 mg p.o. b.i.d. FOLLOWUP: The patient will follow up with her primary care provider, Dr. Annamarie Cervantes. The patient may follow up with her primary display manager Dr. Alberto Engel. CONDITION ON DISCHARGE: Stable. ACTIVITY: Ad isabella. DIET: ADA and heart healthy. CODE STATUS: Full. DISPOSITION: Discharged to [facility] on 02/14/2019. Job ID: [id number]
== END 2019-02-14 14:52 | DRG 291 ==
LOC: ERS 14:40 → T4-A 16:42
PROVIDERS: ADMIT Internal Medicine; ATTEND Internal Medicine
DX: I13.0 Hypertensive heart and chronic kidney disease with heart failure and stage 1 through stage 4 chronic kidney disease, or unspecified chronic kidney disease (principal); I50.33 Acute on chronic diastolic (congestive) heart failure; J18.9 Pneumonia, unspecified organism; J96.21 Acute and chronic respiratory failure with hypoxia; J44.0 Chronic obstructive pulmonary disease with (acute) lower respiratory infection; I48.91 Unspecified atrial fibrillation; E11.22 Type 2 diabetes mellitus with diabetic chronic kidney disease; N18.3 Chronic kidney disease, stage 3 (moderate); I25.10 Atherosclerotic heart disease of native coronary artery without angina pectoris; M48.061 Spinal stenosis, lumbar region without neurogenic claudication; E78.5 Hyperlipidemia, unspecified; K21.9 Gastro-esophageal reflux disease without esophagitis; F41.9 Anxiety disorder, unspecified; F32.9 Major depressive disorder, single episode, unspecified; E03.9 Hypothyroidism, unspecified; E11.42 Type 2 diabetes mellitus with diabetic polyneuropathy; Z90.49 Acquired absence of other specified parts of digestive tract; Z90.710 Acquired absence of both cervix and uterus; Z88.5 Allergy status to narcotic agent; Z88.8 Allergy status to other drugs, medicaments and biological substances; Z79.84 Long term (current) use of oral hypoglycemic drugs; Z79.899 Other long term (current) drug therapy; Z99.81 Dependence on supplemental oxygen; Y95 Nosocomial condition; E11.65 Type 2 diabetes mellitus with hyperglycemia
CPT/HCPCS: 36415; 36416; 71045; 80048; 80053; 80202; 83605; 83880; 84484; 85025; 87040; 93005; 93306; 94640; 94760; 96365; 96375; J1644; J1825; J1940; J2543; J2930; J3370; J3475; J3490; J7620

== ENCOUNTER 2019-02-24 15:35 | Inpatient (IN) | payer MEDICARE, MEDICAID ==
[2019-02-24 16:16] LABS: #Monocytes 0.6 thou/uL (0.11-0.59); #Neutrophils 10.3 thou/uL (1.40-6.50); %Basophils 0.1 % (0.0-1.0); %Eosinophils 0.1 % (0.0-10.0); %Lymphocytes 8.7 % (21.0-51.0); %Neutrophils 86.1 % (42.0-75.0); Hemoglobin 10.1 g/dL (12.0-16.0); Mean Corpuscular HGB CONC 33.1 g/dL (32.0-36.0); Mean Corpuscular Hemoglobin 32.9 pg (27.0-31.0); Mean Corpuscular Volume 99.3 fL (78.0-98.0); Mean Platelet Volume 6.5 fL (7.4-10.4); Platelet Count 138 thou/uL (130-400); Red Blood Cell (RBC) Count 3.06 mill/uL (4.20-5.40); White Blood Cell (WBC) Count 11.9 thou/uL (4.8-10.8)
[2019-02-24] MEDS ORDERED: Levofloxacin 500 mg/D5W 100 ml Premix Bag ONE (16:21)
--- NOTE | 2019-02-24 16:25 | RAD ---
Chest AP view INDICATION: Dyspnea COMPARISON: February 10, 2019 FINDINGS: Lungs:The patchy bibasilar airspace opacities persist, particularly within the right lower lobe. Left basilar opacity likely related to subsegmental atelectasis and chronically elevated left hemidiaphragm. Cardiac silhouette pulmonary vasculature:Moderate cardiomegaly and mild pulmonary vascular congestion persists. Pleural spaces:No pleural effusion or pneumothorax is demonstrated. Upper abdomen:No abnormality seen. Osseous structures: No acute osseous abnormality. IMPRESSION: Stable exam. Persistent bibasilar airspace opacities. Stable cardiomegaly. Stable chronic elevated left hemidiaphragm.
[2019-02-24 16:40] LABS: ALT (SGPT) 10 U/L (8-55); AST (SGOT) 11 U/L (5-34); Albumin 3.5 g/dL (3.4-4.8); Alkaline Phosphatase 76 U/L (40-150); Anion Gap 16 mmol/L (10-20); BUN (Urea Nitrogen) 28 mg/dL (9.8-20.1); Bilirubin, Total 0.6 mg/dL (0.2-1.2); CK (CPK) 25 U/L (29-168); Calc. Creatinine Clearance 0 mL/min (70-130); Calcium 8.5 mg/dL (7.8-10.44); Carbon Dioxide 26 mmol/L (23-31); Chloride 95 mmol/L (98-107); Estimated GFR-MDRD 23; Globulin 3.3 g/dL (2.4-3.5); Glucose 314 mg/dL (83-110); Potassium 5.2 mmol/L (3.5-5.1); Protein, Total 6.8 g/dL (6.0-8.3); Sodium 132 mmol/L (136-145)
[2019-02-24] MEDS ORDERED: Acetaminophen 325 MG TAB ONE (17:13)
[2019-02-24] MEDS ORDERED: Piperacillin/Tazobactam 4.5 GM VIAL ONE (18:03)
[2019-02-24] MEDS ORDERED: Sodium Chloride 0.9% 100 ML ONE (18:04)
[2019-02-24 20:30] LABS: Lactic Acid 2.3 mmol/L (0.5-2.2)
[2019-02-24] MEDS ORDERED: Guaifenesin DM 100-10/5 ML UDCUP PO PRN (21:16)
[2019-02-24] MEDS ORDERED: HumaLOG 300 UNITS/3 ML VIAL SC PRN (21:16)
[2019-02-24] MEDS ORDERED: Dextrose 50% Abboject 50 ML SYRINGE SLOW IVP PRN (21:16)
[2019-02-24] MEDS ORDERED: Ondansetron PF 4 MG/2 ML Vial IVP PRN (21:16)
[2019-02-24] MEDS ORDERED: Benzonatate 100 MG CAP PO PRN (21:16)
[2019-02-24] MEDS ORDERED: Metoprolol Tartrate 25 MG TAB PO SCH ×2 (21:16→22:00)
[2019-02-24] MEDS ORDERED: Ondansetron ODT 4 MG TAB PO PRN (21:16)
[2019-02-24] MEDS ORDERED: Dextrose 5% in Water 1,000 ML IV PRN (21:16)
[2019-02-24] MEDS ORDERED: hydrALAZINE 20 MG/ML VIAL SLOW IVP PRN (21:16)
[2019-02-24] MEDS ORDERED: Famotidine 20 MG TAB PO SCH (21:45)
[2019-02-24] MEDS ORDERED: Citalopram 10 MG TAB PO SCH (21:45)
[2019-02-24] MEDS ORDERED: Pregabalin 50 MG CAP PO SCH (21:45)
[2019-02-24] MEDS ORDERED: Bacteriostatic Water 30 ML VIAL FS PRN (21:49)
[2019-02-24] MEDS ORDERED: Primidone 50 MG TAB PO SCH (22:00)
[2019-02-24] MEDS ORDERED: Mometasone Furoate 120 PUFF 220 MCG INH SCH (22:00)
[2019-02-24] MEDS ORDERED: traMADol HCl 50 MG TAB PO PRN (22:07)
[2019-02-24 22:27] VITALS: BMI 36.9
[2019-02-24] MEDS: HumaLOG 300 UNITS/3 ML VIAL SC PRN (22:59)
[2019-02-24] MEDS: methylPREDNISolone Sod Succ 40 MG VIAL IVP SCH (23:02)
--- NOTE | 2019-02-24 23:14 | HP ---
PRIMARY CARE PROVIDER: Annamarie Cervantes MD. CHIEF COMPLAINT: Shortness of breath. HISTORY OF PRESENT ILLNESS: This is an 83-year-old female, who was recently admitted from 02/10/2019 through 02/14/2019 for healthcare-associated pneumonia, suspected gram-positive cocci, released back to [facility] where the patient is a current resident on [facility]. The patient states she took the medication appropriately and completed her antibiotic course. The patient states she continues to use oxygen at [facility] on a chronic basis up to 3 L/minute by nasal cannula. The patient states she had increased shortness of breath on the date of presentation and EMS personnel were notified after the patient was noted with 88% O2 saturations on 2 L by nasal cannula. The patient denied any specific chills, fever, or rigors. The patient states she was performing her regular activities which are limited due to nonambulatory status requiring maximal assistance with slide board to transfer to a wheelchair. The patient states she is chronically nonambulatory, but denied any recent fall or injury. The patient denied any specific increased lower extremity swelling, but states she does have chronic swelling of her ankles. The patient felt some tightness in her chest and wheezing, at which point, EMS personnel were notified. The patient received bronchodilator therapy with DuoNeb as well as Solu-Medrol 125 mg and magnesium sulfate. The patient states she had some improvement in her overall shortness of breath with the interventions described previously. In the emergency room, the patient underwent general evaluation including chest imaging showing no acute infiltrates. The patient was noted with a fever of 102.5 degrees rectally, receiving Tylenol. The patient also received Levaquin and Zosyn intravenously and overall was treated for suspected underlying pneumonia. PAST MEDICAL HISTORY: 1. Healthcare-associated pneumonia, 02/10/2019 through 02/14/2019 with hospitalization at [facility]. 2. Diastolic heart failure. 3. Atrial fibrillation, on Multaq. 4. Chronic kidney disease stage 3. 5. Chronic hypoxic respiratory failure, on chronic oxygen supplementation at 2 to 3 L/minute by nasal cannula. 6. Diabetes mellitus type 2. 7. Nonambulatory status. 8. Coronary artery disease. PAST SURGICAL HISTORY: 1. Status post appendectomy. 2. Status post cholecystectomy. 3. Status post carpal tunnel release. 4. Status post hysterectomy. 5. Status post left knee surgery. CURRENT MEDICATIONS: 1. Fosamax 70 mg p.o. q.7 days. 2. Vitamin C 500 mg p.o. b.i.d. 3. Pulmicort Flexhaler two puffs inhaled b.i.d. 4. Celexa 30 mg p.o. at bedtime. 5. Ferrous sulfate 325 mg p.o. q.a.m. 6. Elda 180 mg p.o. daily. 7. Folic acid 1 mg p.o. daily. 8. Lasix 20 mg p.o. b.i.d. 9. NovoLog sliding scale. 10. Magnesium 200 mg p.o. daily. 11. Metformin 500 mg p.o. q.a.m. 12. Nystatin 500,000 units p.o. t.i.d. 13. Protonix 20 mg p.o. daily. 14. Potassium chloride 20 mEq p.o. b.i.d. 15. Lyrica 50 mg p.o. b.i.d. 16. Mysoline 25 mg p.o. at bedtime. 17. Zocor 5 mg p.o. at bedtime. 18. Spiriva HandiHaler 18 mcg inhaled daily. 19. Tramadol 25 mg p.o. q.i.d. p.r.n. 20. Zinc sulfate 220 mg p.o. daily. 21. Multaq 400 mg p.o. b.i.d. 22. Metoprolol tartrate 12.5 mg p.o. b.i.d. ALLERGIES: CODEINE AND ASPIRIN. FAMILY HISTORY: Positive for diabetes mellitus, hypertension, and congestive heart failure. SOCIAL HISTORY: The patient resides at [facility] as a long-term resident. Nonambulatory status requiring maximal assistance with slide board to wheelchair. Occasional wine. No tobacco or illicit drug use. REVIEW OF SYSTEMS: CONSTITUTIONAL: Negative for weight loss or gain, ability to conduct usual activities. SKIN: Negative for rash, itching. EYES: Negative for double vision, pain. ENT/MOUTH: Negative for nose bleeding, neck stiffness, pain, tenderness. CARDIOVASCULAR: Negative for palpitations, dyspnea on exertion, orthopnea. RESPIRATORY: Negative for shortness of breath, wheezing, cough, hemoptysis, fever or night sweats. GASTROINTESTINAL: Negative for poor appetite, abdominal pain, heartburn, nausea, vomiting, constipation, or diarrhea. GENITOURINARY: Negative for urgency, frequency, dysuria, nocturia. MUSCULOSKELETAL: Negative for pain, swelling. NEUROLOGIC/PSYCHIATRIC: Negative for anxiety, depression. ALLERGY/IMMUNOLOGIC: Negative for skin rash, bleeding tendency. Otherwise, negative except as stated per HPI. PHYSICAL EXAMINATION: VITAL SIGNS: On admission, blood pressure 139/53, pulse 79, respiratory rate 24, temperature 99.9 degrees Fahrenheit, O2 saturation 96% on 4 L/minute by nasal cannula. GENERAL APPEARANCE: This is an 83-year-old female, alert and oriented x3, pleasant, smiling, in no acute distress. HEENT: Pupils are equal, round, reactive to light and accommodation. Extraocular muscles are intact. No scleral icterus. No conjunctival injection. Nares patent. OP is clear. Oral mucosa dry appearing. NECK: Supple. No cervical adenopathy. No thyromegaly. No carotid bruits. No JVD appreciated. Cervical spine with full active and passive range of motion. No meningeal signs noted. CHEST: Diminished breath sounds in the bases bilaterally. Occasional expiratory wheeze. CARDIOVASCULAR: S1 and S2 without noted murmur, rub, or gallop. ABDOMEN: Obese with landmarks difficult to palpate due to the patient's body habitus. No palpable mass. Bowel sounds are positive in all 4 quadrants. EXTREMITIES: Pitting edema to the proximal shins bilaterally. Pulses are palpable distally at the dorsalis pedis, posterior tibial, and popliteal arteries bilaterally. Capillary refill less than 2 seconds. NEUROLOGIC: Cranial nerves 2 through 12 are grossly intact. The patient not observed ambulatory on this exam. No gross focal deficits appreciated. PERTINENT LAB AND X-RAY FINDINGS: Sodium 132, potassium 5.2, chloride 95, CO2 of 26, BUN 28, creatinine 2.02, estimated GFR 23, glucose 314, lactic acid level 2.4, calcium 8.5. LFTs within normal limits. BNP 181, previously noted 175 on 02/10/2019. CBC showed a white blood cell count of 11.9, hemoglobin 10, hematocrit 30, MCV 99, platelet count 138 with 86% neutrophilia. Portable chest x-ray dated 02/24/2019 showed bibasilar atelectasis and chronic changes. No acute process identified. Telemetry monitoring shows sinus rhythm with heart rates in the 70s. ASSESSMENT AND PLAN: 1. Acute chronic obstructive pulmonary disease exacerbation. The patient will be admitted to the telemetry unit. We will continue Levaquin 750 mg IV daily. Continue Solu-Medrol 40 mg IV q.6 hours. Spiriva HandiHaler 18 mcg daily. Pulmicort 2 puffs inhaled b.i.d. Continue DuoNeb q.4 hours. Continue oxygen supplementation to maintain O2 saturations greater than or equal to 88%. 2. Acute on chronic hypoxic respiratory failure. Suspect secondary to acute chronic obstructive pulmonary disease. See #1 above for management. Baseline oxygen requirement at 2 to 3 L/minute by nasal cannula. 3. Acute kidney injury on chronic kidney disease stage 3. Avoid nephrotoxic agents and limit contrast exposure. Hold Lasix and metformin. Hold potassium chloride. Repeat creatinine in the a.m. 4. Hyperkalemia, mild. Suspect secondary to acute kidney injury. Hold potassium chloride as stated previously and repeat potassium level in the a.m. 5. Diabetes mellitus type 2. Insulin sliding scale for reflexive coverage. Accu-Cheks a.c. and at bedtime. Hold metformin x24 hours due to acute kidney injury. 6. Chronic diastolic heart failure. Appears compensated currently. Last ejection fraction of 55% to 60%. 7. Chronic macrocytic anemia, stable currently. No current evidence to suggest acute blood loss. Repeat CBC in the a.m. 8. Nonambulatory status. Continue general fall risk precautions. Maximal assistance with transfers to chair. 9. Prophylaxis. SCDs while in bed. Pepcid 20 mg p.o. b.i.d. 10. Code status is full. Surrogate medical decision maker is not identified. Job ID: [id number]
[2019-02-25] MEDS: methylPREDNISolone Sod Succ 40 MG VIAL IVP SCH ×3 (05:52→17:48)
[2019-02-25 06:59] LABS: Hemoglobin 9.5 g/dL (12.0-16.0); Mean Corpuscular HGB CONC 34.3 g/dL (32.0-36.0); Mean Corpuscular Hemoglobin 34.3 pg (27.0-31.0); Mean Platelet Volume 7.1 fL (7.4-10.4); Platelet Count 123 thou/uL (130-400); RBC Distribution Width 12.7 % (11.5-14.5); Red Blood Cell (RBC) Count 2.75 mill/uL (4.20-5.40); White Blood Cell (WBC) Count 7.5 thou/uL (4.8-10.8)
[2019-02-25 07:29] LABS: Anion Gap 16 mmol/L (10-20); BUN (Urea Nitrogen) 34 mg/dL (9.8-20.1); Calc. Creatinine Clearance 33 mL/min (70-130); Calcium 8.5 mg/dL (7.8-10.44); Carbon Dioxide 24 mmol/L (23-31); Chloride 94 mmol/L (98-107); Estimated GFR-MDRD 23; Sodium 129 mmol/L (136-145)
[2019-02-25 07:36] LABS: Glucose 565 mg/dL (83-110)
[2019-02-25 07:49] LABS: Band 4 % (5-11); Lymphocytes 3 % (21-51); MDiff Complete? YES; Monocytes 1 % (0-10); Neutrophil 92 % (42-75); Platelet Morphology Comment Appears Decreased; Polychromasia SLIGHT = 2-3 cells (100X) (0-2/hpf)
[2019-02-25] MEDS: Ferrous Sulfate 325 MG TAB PO SCH (08:30)
[2019-02-25] MEDS: Dronedarone HCl 400 MG TAB PO SCH ×2 (08:30→16:08)
[2019-02-25] MEDS: Folic Acid 1 MG TAB PO SCH (08:31)
[2019-02-25] MEDS: Magnesium Oxide 400 MG TAB PO SCH (08:31)
[2019-02-25] MEDS: Loratadine 10 MG TAB PO SCH (08:31)
[2019-02-25] MEDS: Metoprolol Tartrate 25 MG TAB PO SCH ×2 (08:32→20:28)
[2019-02-25] MEDS: Pregabalin 50 MG CAP PO SCH ×2 (08:33→20:29)
[2019-02-25] MEDS: Zinc Sulfate 220 MG CAP PO SCH (08:35)
[2019-02-25] MEDS ORDERED: Prevnar 13-Val Conj/PF 0.5 ML SYRINGE IM ONE (09:00)
[2019-02-25] MEDS ORDERED: Spiriva 18 MCG CAP (Box of 5 Caps) INH SCH (09:00)
[2019-02-25] MEDS ORDERED: HumaLOG 300 UNITS/3 ML VIAL SC SCH ×2 (09:15→12:45)
[2019-02-25] MEDS: Acetaminophen 500 MG TAB PO PRN ×2 (12:53→20:27)
--- NOTE | 2019-02-25 13:26 | PDOC.PN ---
- Subjective Encounter Start Date: 02/25/19 Encounter Start Time: 13:25 Subjective: f/u for resp failure suspected due to COPD exacerbation on Duonebs, -: Pulmicort, O2, Spiriva, Solumedrol. Feels better overall but nsg reports -: hyperglycemia. Feels much better today. - Objective Resuscitation Status - Order Detail: 02/24/19 18:21 Resuscitation Status Routine Resuscitation Status: FULL: Full Resuscitation MAR Reviewed: Yes Vital Signs & Weight: Vital Signs (12 hours) Temp Pulse Resp BP Pulse Ox 02/25/19 12:42 98.3 F 77 15 139/64 94 L 02/25/19 11:35 68 20 02/25/19 08:21 97.7 F 71 16 160/69 H 94 L 02/25/19 06:35 94 L 02/25/19 06:34 61 20 94 L 02/25/19 04:00 97.5 F L 66 18 159/71 H 92 L 02/25/19 02:31 65 16 95 Weight Weight 221 lb 12.8 oz I&O: 02/24/19 02/25/19 02/26/19 06:59 06:59 06:59 Intake Total 272 Output Total 300 Balance -28 Result Diagrams: 02/25/19 06:22 02/25/19 06:21 Additional Labs: Accuchecks 02/25/19 02/25/19 02/24/19 11:15 05:59 21:22 POC Glucose 525 H Greater than 550 H* 511 H Microbiology 09/14/16 22:45 Sputum Respiratory Culture - Final 09/14/16 20:00 Nasal swab Influenza Types A,B Direct EIA - Final 09/14/16 16:34 Venous blood - Right Arm Blood Culture - Preliminary NO GROWTH AT 48 HOURS 09/14/16 14:54 Venous blood - Left Arm Blood Culture - Preliminary NO GROWTH AT 48 HOURS 02/24/19 16:30 Venous blood - Right Hand Blood Culture - Preliminary Specimen has been received and culture in progress. No Growth to date. 02/24/19 16:26 Venous blood - Left Arm Blood Culture - Preliminary Specimen has been received and culture in progress. No Growth to date. Laboratory Tests 09/14/16 09/16/16 09/17/16 14:46 04:33 04:36 WBC Hgb MCV Potassium 4.0 4.4 Creatinine Hemoglobin A1c 6.1 H Lactic Acid 02/24/19 02/24/19 02/24/19 16:08 16:08 16:26 WBC 11.9 H Hgb 10.1 L MCV 99.3 H Potassium 5.2 H Creatinine 2.02 H Hemoglobin A1c Lactic Acid 2.4 H 02/24/19 20:02 WBC Hgb MCV Potassium Creatinine Hemoglobin A1c Lactic Acid 2.3 H EKG Reviewed by me: Yes (Tele - SR) Phys Exam - Physical Examination Constitutional: NAD HEENT: PERRLA, sclera anicteric, oral pharynx no lesions Neck: no nodes, no JVD, supple, full ROM diminished in bases, occ wheeze S1, S2 Cardiovascular: RRR, no significant murmur, no rub, gallop Gastrointestinal: soft, non-tender, no distention, positive bowel sounds Musculoskeletal: pulses present, edema present Neurological: normal sensation, moves all 4 limbs Psychiatric: A&O x 3 Skin: normal turgor, cap refill <2 seconds Dx/Plan (1) COPD with acute exacerbation Code(s): J44.1 - CHRONIC OBSTRUCTIVE PULMONARY DISEASE W (ACUTE) EXACERBATION Status: Acute Comment: Continue Solumedrol, Duonebs, O2 supplementation, Spiriva, Pulmicort inh, Levaquin q48h (2) Acute and chronic respiratory failure with hypoxia Code(s): J96.21 - ACUTE AND CHRONIC RESPIRATORY FAILURE WITH HYPOXIA Status: Acute Comment: Continue mgmt as outlined in #1, wean O2 to pre-admit levels (3) KASHMIR (acute kidney injury) Code(s): N17.9 - ACUTE KIDNEY FAILURE, UNSPECIFIED Status: Acute Comment: Multifactorial, avoid nephrotoxic meds and limit contrast exposure, serial creatinine (4) CKD (chronic kidney disease) stage 3, GFR 30-59 ml/min Status: Chronic (5) Hyperkalemia Code(s): E87.5 - HYPERKALEMIA Status: Acute Comment: Improved, hold all K+, serial K+ monitoring (6) Macrocytic anemia Code(s): D53.9 - NUTRITIONAL ANEMIA, UNSPECIFIED Status: Chronic Comment: Stable, no evidence of active blood loss (7) DM2 (diabetes mellitus, type 2) Status: Chronic Qualifiers: Diabetes mellitus complication status: with hyperglycemia Comment: Labile, aggressive ISS, resume Metformin, serial accuchecks, anticipate improvement with d/c Solumedrol - Plan continue antibiotics, psychiatric social worker supervisor, respiratory therapy, DVT proph w/SCDs Stable currently -: Continue Duonebs, Solumedrol, Levaquin -: Continue Pulmicort Inh -: Resume Metformin -: Aggressive ISS * AM lab: BMP, CBC
[2019-02-25] MEDS: HumaLOG 300 UNITS/3 ML VIAL SC PRN ×2 (17:49→20:37)
[2019-02-25] MEDS: Mometasone Furoate 120 PUFF 220 MCG INH SCH (19:06)
[2019-02-25] MEDS: Primidone 50 MG TAB PO SCH (20:30)
[2019-02-25] MEDS: Citalopram 20 MG TAB PO SCH (20:31)
[2019-02-25] MEDS: Famotidine 20 MG TAB PO SCH (20:31)
[2019-02-26] MEDS: methylPREDNISolone Sod Succ 40 MG VIAL IVP SCH ×3 (01:11→11:34)
[2019-02-26 05:45] LABS: Band 7 % (5-11); Hemoglobin 9.2 g/dL (12.0-16.0); Lymphocytes 3 % (21-51); MDiff Complete? YES; Mean Corpuscular Hemoglobin 33.8 pg (27.0-31.0); Mean Corpuscular Volume 99.6 fL (78.0-98.0); Monocytes 1 % (0-10); Neutrophil 89 % (42-75); Platelet Count 140 thou/uL (130-400); Platelet Morphology Comment Appears Adequate; Polychromasia SLIGHT = 2-3 cells (100X) (0-2/hpf); RBC Distribution Width 12.5 % (11.5-14.5); Red Blood Cell (RBC) Count 2.71 mill/uL (4.20-5.40); White Blood Cell (WBC) Count 9.2 thou/uL (4.8-10.8)
[2019-02-26 05:56] LABS: Anion Gap 13 mmol/L (10-20); BUN (Urea Nitrogen) 37 mg/dL (9.8-20.1); Calc. Creatinine Clearance 37 mL/min (70-130); Calcium 8.9 mg/dL (7.8-10.44); Carbon Dioxide 27 mmol/L (23-31); Chloride 94 mmol/L (98-107); Estimated GFR-MDRD 27; Glucose 534 mg/dL (83-110); Potassium 4.7 mmol/L (3.5-5.1); Sodium 129 mmol/L (136-145)
[2019-02-26] MEDS: HumaLOG 300 UNITS/3 ML VIAL SC PRN ×4 (06:10→21:12)
[2019-02-26] MEDS: Zinc Sulfate 220 MG CAP PO SCH (09:26)
[2019-02-26] MEDS: Dronedarone HCl 400 MG TAB PO SCH ×2 (09:27→16:27)
[2019-02-26] MEDS: Ferrous Sulfate 325 MG TAB PO SCH (09:27)
[2019-02-26] MEDS: Metoprolol Tartrate 25 MG TAB PO SCH ×2 (09:27→21:11)
[2019-02-26] MEDS: Pregabalin 50 MG CAP PO SCH ×2 (09:27→21:11)
[2019-02-26] MEDS: metFORMIN 500 MG TAB PO SCH (09:27)
[2019-02-26] MEDS: Folic Acid 1 MG TAB PO SCH (09:28)
[2019-02-26] MEDS: Magnesium Oxide 400 MG TAB PO SCH (09:28)
[2019-02-26] MEDS: Loratadine 10 MG TAB PO SCH (09:28)
--- NOTE | 2019-02-26 11:55 | PDOC.PN ---
- Subjective Encounter Start Date: 02/26/19 Encounter Start Time: 11:45 Subjective: f/u for resp failure due to COPD exacerbation improved with Solumedrol, -: Duonebs, Levaquin. Feels better overall. Glucose trend labile. Feels much -: better overall. - Objective Resuscitation Status - Order Detail: 02/24/19 18:21 Resuscitation Status Routine Resuscitation Status: FULL: Full Resuscitation MAR Reviewed: Yes Vital Signs & Weight: Vital Signs (12 hours) Temp Pulse Resp BP Pulse Ox 02/26/19 09:42 69 18 96 02/26/19 07:41 98.2 F 83 20 148/66 H 95 02/26/19 06:43 65 16 95 02/26/19 04:00 97.9 F 72 18 171/72 H 94 L 02/26/19 00:00 20 02/25/19 23:58 94 L Weight Weight 219 lb 8 oz I&O: 02/25/19 02/26/19 02/27/19 06:59 06:59 06:59 Intake Total 272 2050 Output Total 300 950 Balance -28 1100 Result Diagrams: 02/26/19 05:08 02/26/19 05:08 Additional Labs: Accuchecks 02/26/19 02/26/19 02/25/19 11:20 05:33 20:31 POC Glucose 516 H 523 H 472 H 02/25/19 17:06 POC Glucose 448 H Microbiology 09/14/16 22:45 Sputum Respiratory Culture - Final 09/14/16 20:00 Nasal swab Influenza Types A,B Direct EIA - Final 09/14/16 16:34 Venous blood - Right Arm Blood Culture - Preliminary NO GROWTH AT 48 HOURS 09/14/16 14:54 Venous blood - Left Arm Blood Culture - Preliminary NO GROWTH AT 48 HOURS 02/24/19 16:30 Venous blood - Right Hand Blood Culture - Preliminary Specimen has been received and culture in progress. No Growth to date. 02/24/19 16:26 Venous blood - Left Arm Blood Culture - Preliminary Specimen has been received and culture in progress. No Growth to date. Laboratory Tests 09/14/16 09/16/16 09/17/16 14:46 04:33 04:36 WBC Hgb MCV Plt Count Sodium Potassium 4.0 4.4 Creatinine Hemoglobin A1c 6.1 H Lactic Acid 02/24/19 02/24/19 02/24/19 16:08 16:08 16:26 WBC 11.9 H Hgb 10.1 L MCV 99.3 H Plt Count Sodium 132 L Potassium 5.2 H Creatinine 2.02 H Hemoglobin A1c Lactic Acid 2.4 H 02/24/19 02/25/19 02/25/19 20:02 06:21 06:22 WBC 7.5 Hgb 9.5 L MCV Plt Count 123 L Sodium 129 L Potassium Creatinine Hemoglobin A1c Lactic Acid 2.3 H EKG Reviewed by me: Yes (Tele - SR) Phys Exam - Physical Examination Constitutional: NAD HEENT: PERRLA, sclera anicteric, oral pharynx no lesions Neck: no nodes, no JVD, supple, full ROM diminished in bases S1, S2 Cardiovascular: RRR, no significant murmur, no rub, gallop Gastrointestinal: soft, non-tender, no distention, positive bowel sounds Musculoskeletal: no edema, pulses present Neurological: normal sensation, moves all 4 limbs Psychiatric: A&O x 3 Skin: normal turgor, cap refill <2 seconds Dx/Plan (1) COPD with acute exacerbation Code(s): J44.1 - CHRONIC OBSTRUCTIVE PULMONARY DISEASE W (ACUTE) EXACERBATION Status: Acute Comment: Convert to Prednisone 40mg daily, Duonebs, O2 supplementation, Spiriva, Pulmicort inh, Levaquin q48h (2) Acute and chronic respiratory failure with hypoxia Code(s): J96.21 - ACUTE AND CHRONIC RESPIRATORY FAILURE WITH HYPOXIA Status: Acute Comment: Continue mgmt as outlined in #1, wean O2 to pre-admit levels (3) KASHMIR (acute kidney injury) Code(s): N17.9 - ACUTE KIDNEY FAILURE, UNSPECIFIED Status: Acute Comment: Multifactorial, avoid nephrotoxic meds and limit contrast exposure, serial creatinine, improving (4) CKD (chronic kidney disease) stage 3, GFR 30-59 ml/min Status: Chronic (5) Hyperkalemia Code(s): E87.5 - HYPERKALEMIA Status: Acute Comment: Improved, hold all K+, serial K+ monitoring (6) Macrocytic anemia Code(s): D53.9 - NUTRITIONAL ANEMIA, UNSPECIFIED Status: Chronic Comment: Stable, no evidence of active blood loss (7) DM2 (diabetes mellitus, type 2) Status: Chronic Qualifiers: Diabetes mellitus complication status: with hyperglycemia Comment: Labile, aggressive ISS, resume Metformin, serial accuchecks, anticipate improvement with d/c Solumedrol (8) Acute hyponatremia Code(s): E87.1 - HYPO-OSMOLALITY AND HYPONATREMIA Status: Acute Comment: Secondary to hyperglycemia - Plan continue antibiotics, PT/OT, social media designer, respiratory therapy, DVT proph w/ SCDs Stable currently -: Start Prednisone 40mg po daily -: D/C Solumedrol -: Continue Levaquin, Duonebs, Spiriva -: AM lab: BMP * Likely back to SNF in 24h
[2019-02-26] MEDS ORDERED: predniSONE 20 MG TAB PO SCH (12:15)
[2019-02-26] MEDS: Acetaminophen 500 MG TAB PO PRN (13:32)
[2019-02-26] MEDS: Mometasone Furoate 120 PUFF 220 MCG INH SCH (18:36)
[2019-02-26] MEDS: Primidone 50 MG TAB PO SCH (21:10)
[2019-02-26] MEDS: Famotidine 20 MG TAB PO SCH (21:11)
[2019-02-26] MEDS: Citalopram 20 MG TAB PO SCH (21:11)
[2019-02-27] MEDS: HumaLOG 300 UNITS/3 ML VIAL SC PRN ×2 (06:29→11:53)
[2019-02-27 07:13] LABS: Anion Gap 12 mmol/L (10-20); BUN (Urea Nitrogen) 36 mg/dL (9.8-20.1); Calc. Creatinine Clearance 41 mL/min (70-130); Calcium 8.8 mg/dL (7.8-10.44); Carbon Dioxide 29 mmol/L (23-31); Chloride 94 mmol/L (98-107); Estimated GFR-MDRD 31; Glucose 357 mg/dL (83-110); Potassium 4.5 mmol/L (3.5-5.1); Sodium 130 mmol/L (136-145)
[2019-02-27] MEDS ORDERED: predniSONE 20 MG TAB PO SCH (08:00)
[2019-02-27 08:20] VITALS: TEMP 98
[2019-02-27] MEDS: Ferrous Sulfate 325 MG TAB PO SCH (08:42)
[2019-02-27] MEDS: Dronedarone HCl 400 MG TAB PO SCH (08:42)
[2019-02-27] MEDS: Zinc Sulfate 220 MG CAP PO SCH (08:42)
[2019-02-27] MEDS: Magnesium Oxide 400 MG TAB PO SCH (08:43)
[2019-02-27] MEDS: Pregabalin 50 MG CAP PO SCH (08:43)
[2019-02-27] MEDS: metFORMIN 500 MG TAB PO SCH (08:43)
[2019-02-27] MEDS: Metoprolol Tartrate 25 MG TAB PO SCH (08:43)
[2019-02-27] MEDS: Loratadine 10 MG TAB PO SCH (08:44)
[2019-02-27] MEDS: Folic Acid 1 MG TAB PO SCH (08:44)
[2019-02-27] MEDS ORDERED: Bisacodyl 5 MG TAB PO SCH (10:30)
--- NOTE | 2019-02-27 10:33 | PDOC.EVN ---
Event Note - Event Note Event Note: [facility] #[id number]
[2019-02-27 11:58] VITALS: BP 142/67
--- NOTE | 2019-02-28 12:57 | DIS ---
DATE OF ADMISSION: 02/24/2019 DATE OF DISCHARGE: 02/27/2019 ANTICIPATED DATE OF DISCHARGE: 02/28/2019. ADMITTING DIAGNOSES: Hypoxia, pneumonia, hyperkalemia, and heart failure. DISCHARGE DIAGNOSES: 1. Pneumonia, resolving. 2. Cough, resolved. 3. Hyperkalemia, resolved. 4. Heart failure, stable. 5. Chronic obstructive pulmonary disease, stable. HOSPITAL COURSE: This is an 83-year-old female who was admitted to Internal Medicine Team for COPD exacerbation and pneumonia, was started on the IV antibiotics as well as IV steroids. Observed for 3 days, had significant improvement in her condition. At point in time of discharge, white count had reduced. Kidney function had come back to normal. Serum sodium levels were normal. The patient was given a prescription for prednisone 20 mg as well as Levaquin for 5 days, was discharged back to the facility from where she came from. The patient was to follow up with her PCP within 1 week for further management and care. Home oxygen to be continued as per baseline. DISPOSITION: Back to alf facility. FOLLOWUP: Follow up with PCP in 1 week. CONDITION: Stable. PROGNOSIS: Guarded. ACTIVITY: As tolerated with assistance as needed. DIET: Low-fat, low-calorie, high-fiber diet. Case and plan again discussed with the patient at length. She understood and agreed with this plan. Job ID: [id number]
== END 2019-02-27 15:16 | DRG 193 ==
LOC: ERS 15:35 → 2NO 17:02
PROVIDERS: ADMIT Internal Medicine; ATTEND Internal Medicine
DX: J18.9 Pneumonia, unspecified organism (principal); J96.21 Acute and chronic respiratory failure with hypoxia; J44.1 Chronic obstructive pulmonary disease with (acute) exacerbation; I13.0 Hypertensive heart and chronic kidney disease with heart failure and stage 1 through stage 4 chronic kidney disease, or unspecified chronic kidney disease; I50.32 Chronic diastolic (congestive) heart failure; N17.9 Acute kidney failure, unspecified; E87.1 Hypo-osmolality and hyponatremia; N18.3 Chronic kidney disease, stage 3 (moderate); E11.22 Type 2 diabetes mellitus with diabetic chronic kidney disease; D53.9 Nutritional anemia, unspecified; I48.91 Unspecified atrial fibrillation; E87.5 Hyperkalemia; E11.65 Type 2 diabetes mellitus with hyperglycemia; I25.10 Atherosclerotic heart disease of native coronary artery without angina pectoris; Z87.01 Personal history of pneumonia (recurrent); Z90.49 Acquired absence of other specified parts of digestive tract; Z90.710 Acquired absence of both cervix and uterus; Z79.899 Other long term (current) drug therapy; Z79.51 Long term (current) use of inhaled steroids; Z79.4 Long term (current) use of insulin
CPT/HCPCS: 36415; 36416; 71045; 80048; 80053; 82550; 83605; 83880; 84484; 85007; 85025; 85027; 87040; 90471; 90670; 93005; 94640; 96365; 96367; G0009; J1956; J2543; J2920; J3490; J7512; J7620

== ENCOUNTER 2019-03-17 11:16 | Emergency (ER) | payer MEDICARE, MEDICAID ==
--- NOTE | 2019-03-17 12:44 | ULT ---
EXAM: Left lower extremity venous Doppler HISTORY: Left lower extremity edema/swelling. FINDINGS: Grayscale, color-flow, Doppler evaluation, spectral analysis of the left lower extremity venous struc tures is performed with 2-D imaging. The left common femoral, superficial femoral, popliteal, posterior tibial, proximal greater saphenous and profunda femoral veins are imaged. There is normal luminal compressibility, flow, and augmentation the visualized deep venous structures of the left lower extremity. Small amount of subcutaneous edema is seen in the left lower extremity. IMPRESSION: No evidence of a deep vein thrombosis in the visualized deep venous structures left lower extremity.
[2019-03-17] MEDS ORDERED: Gabapentin 300 MG CAP PO SCH (14:00)
== END 2019-03-17 18:09 ==
LOC: ERS 11:16
DX: E11.40 Type 2 diabetes mellitus with diabetic neuropathy, unspecified (principal); G62.9 Polyneuropathy, unspecified; I13.0 Hypertensive heart and chronic kidney disease with heart failure and stage 1 through stage 4 chronic kidney disease, or unspecified chronic kidney disease; I50.9 Heart failure, unspecified; J44.9 Chronic obstructive pulmonary disease, unspecified; N18.3 Chronic kidney disease, stage 3 (moderate); I25.10 Atherosclerotic heart disease of native coronary artery without angina pectoris; I48.91 Unspecified atrial fibrillation; E83.42 Hypomagnesemia; Z79.4 Long term (current) use of insulin; Z79.899 Other long term (current) drug therapy

== ENCOUNTER 2019-04-05 20:45 | Observation (INO) | payer MEDICARE, MEDICAID ==
--- NOTE | 2019-04-05 21:53 | RAD ---
CHEST 1 VIEW: Date: 04/05/19 HISTORY: Dyspnea, respiratory distress. COMPARISON: 02/24/19. FINDINGS: Stable left hemidiaphragm elevation. Mild bilateral vascular congestion. Minimal cardiomegaly. Slight blunting of both costophrenic angles, possible small pleural effusions. IMPRESSION: Borderline cardiomegaly with mild vascular congestion and possible small pleural effusions. Little geneva antoinee from prior study. POS: RRE
[2019-04-05 21:58] LABS: Hemoglobin 10.2 g/dL (12.0-16.0); Mean Corpuscular HGB CONC 33.9 g/dL (32.0-36.0); Mean Corpuscular Hemoglobin 33.1 pg (27.0-31.0); Mean Corpuscular Volume 97.6 fL (78.0-98.0); RBC Distribution Width 14.8 % (11.5-14.5); Red Blood Cell (RBC) Count 3.08 mill/uL (4.20-5.40); White Blood Cell (WBC) Count 7.1 thou/uL (4.8-10.8)
[2019-04-05 22:04] LABS: #Eosinphils 0.1 thou/uL (0.0-0.7); #Monocytes 0.4 thou/uL (0.11-0.59); #Neutrophils 5.6 thou/uL (1.40-6.50); %Basophils 0.2 % (0.0-1.0); %Eosinophils 0.8 % (0.0-10.0); %Lymphocytes 14.7 % (21.0-51.0); %Monocytes 5.6 % (0.0-10.0); %Neutrophils 78.8 % (42.0-75.0); ALT (SGPT) 21 U/L (8-55); AST (SGOT) 26 U/L (5-34); Albumin 3.6 g/dL (3.4-4.8); Alkaline Phosphatase 97 U/L (40-150); Anion Gap 16 mmol/L (10-20); BUN (Urea Nitrogen) 32 mg/dL (9.8-20.1); Bilirubin, Total 0.6 mg/dL (0.2-1.2); Calc. Creatinine Clearance 0 mL/min (70-130); Calcium 8.6 mg/dL (7.8-10.44); Carbon Dioxide 25 mmol/L (23-31); Chloride 93 mmol/L (98-107); Estimated GFR-MDRD 26; Globulin 2.8 g/dL (2.4-3.5); Glucose 328 mg/dL (83-110); Mean Platelet Volume 7.6 fL (7.4-10.4); Platelet Count 92 thou/uL (130-400); Platelet Morphology Comment Appears Adequate; Potassium 5.3 mmol/L (3.5-5.1); Protein, Total 6.4 g/dL (6.0-8.3); Sodium 129 mmol/L (136-145)
[2019-04-06] MEDS ORDERED: Guaifenesin DM 100-10/5 ML UDCUP PO PRN (00:13)
[2019-04-06] MEDS ORDERED: Acetaminophen 325 MG TAB PO PRN (00:13)
[2019-04-06] MEDS ORDERED: Senokot S 8.6-50 MG TAB PO PRN (00:13)
[2019-04-06] MEDS ORDERED: Dextrose 50% Abboject 50 ML SYRINGE SLOW IVP PRN ×2 (00:16→11:52)
[2019-04-06] MEDS ORDERED: Dextrose 5% in Water 1,000 ML IV PRN ×2 (00:16→11:52)
[2019-04-06] MEDS ORDERED: HumaLOG 300 UNITS/3 ML VIAL SC PRN ×3 (00:16→06:40)
[2019-04-06] MEDS ORDERED: Bacteriostatic Water 30 ML VIAL FS PRN (00:21)
[2019-04-06 01:14] LABS: Troponin I 0.021 ng/mL (< 0.028)
[2019-04-06 01:19] VITALS: BMI 37.5
--- NOTE | 2019-04-06 02:30 | HP ---
PRIMARY CARE PHYSICIAN: Dr. Cervantes. CHIEF COMPLAINT: Shortness of breath. HISTORY OF PRESENT ILLNESS: Ms. Anguiano is an 83-year-old female who reported to the emergency room today via EMS after the correction found that her pO2 sats were in the 50s on her normal 2 L that she wears in the correction. When EMS arrived, she was in the 80s. They increased her O2 to 8 L, and she was given 2 DuoNeb en route. She is currently on arrival on 3 L of O2 and is comfortable at 96%. The patient does have a history of COPD, was hospitalized with pneumonia in January with 2 admissions and acute on chronic COPD exacerbation in January as well. She reports that she was in her normal state of health when she became short of breath. Reports that it was more difficult to get a deep breath and she was brought here to the emergency room. She states currently that after the DuoNebs, she feels much better. She denied cough, fever, chills, and her wheezing has resolved. Due to the fact that she was hypoxic 50s per correction and 80s per EMS, we will admit overnight for further observation. We will continue the DuoNebs and low-dose steroids. Re-evaluate in the morning. PAST MEDICAL HISTORY: 1. Healthcare associated pneumonia, 2 admissions in January. 2. Diastolic heart failure. 3. Atrial fibrillation, on Multaq. 4. Chronic kidney disease stage 3. 5. Chronic hypoxic respiratory failure on chronic O2 supplementation at 2 L to 3 L per nasal cannula. 6. Diabetes mellitus type 2. 7. Nonambulatory status. 8. Coronary artery disease. PAST SURGICAL HISTORY: 1. Status post appendectomy. 2. Status post cholecystectomy. 3. Status post carpal tunnel release. 4. Status post hysterectomy. 5. Status post left knee surgery. ALLERGIES: CODEINE AND ASPIRIN. FAMILY HISTORY: Positive for diabetes, hypertension, and congestive heart failure. SOCIAL HISTORY: The patient resides at [facility], she is a long-term resident, nonambulatory status, requiring maximum assistance with slide board to the wheelchair. Does drink occasional wine. Denies any tobacco or illicit drug use. CURRENT MEDICATIONS: Per ER system, these will be verified on the inpatient side; 1. Celexa 10 mg p.o. once a day. 2. Folic acid 1 mg p.o. once a day. 3. Iron 65 mg once a day. 4. Magnesium 200 mg p.o. daily. 5. Metformin 500 mg once a day. 6. Prilosec 20 mg once a day. 7. Simvastatin 5 mg once a day at bedtime. 8. Furosemide 20 mg p.o. b.i.d. 9. Lyrica 50 mg b.i.d. 10. Metoprolol 25 mg, half tablet b.i.d. 11. Multaq 400 mg b.i.d. 12. Potassium chloride 20 mEq b.i.d. 13. Elda 180 mg once a day. 14. MiraLAX 17 g once a day as needed. 15. Proventil 2 puffs q.4 hours as needed. 16. Robitussin 5 mL q.4 hours as needed. 17. Tums chewable 500 mg q.6 hours p.r.n. 18. Fosamax 70 mg once a week. 19. Spiriva 18 mcg daily. 20. Clonidine patch 0.1 mg weekly. 21. Symbicort 160/4.5 b.i.d. 22. NovoLog sliding scale. 23. Tramadol 50 mg p.o. q.6 as needed. 24. Tylenol 325 x2 six hours p.r.n. 25. Zofran 4 mg q.6 hours as needed. 26. Mysoline 50 mg half tablet once a day. 27. Prednisone 20 mg once a day. REVIEW OF SYSTEMS: The patient reports some shortness of breath. Denies cough. Denies fever or chills. All other systems reviewed and are negative unless mentioned in HPI. PHYSICAL EXAMINATION: VITAL SIGNS: Blood pressure 136/57, pulse is 64, respirations 18, pO2 sats are 98% on room air, temp is 98.7. CONSTITUTIONAL: The patient appears nontoxic. She is alert and oriented to person, place, and time. The patient is in no apparent distress. HEENT: Head is atraumatic and normocephalic. Eyes; eyelids are normal to inspection. Pupils are equally round and reactive to light. ENT; mucous membranes are moist. Mouth exam is normal. NECK: Normal range of motion. Trachea is midline. RESPIRATORY/CHEST: Breath sounds are diminished, bilateral lower lobes. No wheezing or rhonchi are auscultated. Chest movement is symmetrical. CARDIOVASCULAR: Regular heart rate and rhythm. Heart sounds are normal. ABDOMEN: Nontender. Bowel sounds are heard. BACK: Normal inspection. Normal range of motion. EXTREMITIES: Upper extremities; normal inspection, normal range of motion. Radial pulses are equal bilaterally. Lower extremities; normal inspection. Normal range of motion. +1 edema noted bilaterally. Pedal pulses are equal. NEUROLOGIC: The patient is oriented to person, place, and time. Speech is normal. There are no focal motor or sensory deficits. SKIN: Warm, dry, normal in color. She does have some bruising to the left arm of various ages. PSYCH: The patient is oriented to person, place, and time. Normal affect. IMAGING DATA: EKG in the emergency room shows a complete right bundle-branch block, normal sinus rhythm, beats per minute 70, ST segments and T-waves are normal, axis is normal. PERTINENT LABORATORY DATA: Sodium 129, potassium is 5.3, chloride is 93, carbon dioxide 25, gap is 16, BUN is 32, creatinine is 1.87, estimated GFR is 26, glucose is 328, calcium is 8.6. Troponin x1 is undetectable. Liver enzymes are unremarkable. White blood cell count is 7.1, hemoglobin is 10.2, hematocrit is 30.1, and platelet count is 92. ASSESSMENT AND PLAN: 1. Acute chronic obstructive pulmonary disease exacerbation. The patient will be admitted to the medical unit. We will continue Solu-Medrol 20 mg IV q.8 hours. We will continue Spiriva and Pulmicort. Continue DuoNeb q.6. Continue oxygen supplementation to maintain O2 saturations greater to or equal to 92%. 2. Acute on chronic hypoxic respiratory failure, suspect secondary to acute on chronic obstructive pulmonary disease. Baseline oxygen requirements 2-3 L/min by nasal cannula. 3. Chronic kidney disease stage 3. We will avoid nephrotoxic agents. We were going to hold metformin for now. Repeat lab values morning run. 4. Hyperkalemia, mild. This appears stable. We will repeat the potassium level in the a.m. 5. Diabetes mellitus type 2. Insulin sliding scale for reflexive coverage. Accu-Cheks a.c. and at bedtime. We will hold metformin for now. May restart pending lab values in the morning. 6. Chronic diastolic heart failure, appears compensated. Last ejection fraction of 55% to 60%. 7. Chronic microcytic anemia, currently stable. We will repeat CBC in the morning. 8. Ambulatory status, general fall risk, will need maximum assistance with transfers to the chair. 9. Prophylaxis. Sequential compression devices while in bed. Will start Pepcid 20 mg p.o. b.i.d. 10. Hospital course will be dependent on clinical findings. Job ID: [id number]
[2019-04-06] MEDS: methylPREDNISolone Sod Succ 40 MG VIAL IVP SCH ×2 (06:05→13:41)
[2019-04-06 06:33] LABS: #Lymphocytes 0.3 thou/uL (1.20-3.40); #Monocytes 0.1 thou/uL (0.11-0.59); #Neutrophils 4.7 thou/uL (1.40-6.50); %Eosinophils 0.6 % (0.0-10.0); %Lymphocytes 5.7 % (21.0-51.0); %Monocytes 0.9 % (0.0-10.0); %Neutrophils 92.8 % (42.0-75.0); Hemoglobin 9.3 g/dL (12.0-16.0); Mean Corpuscular HGB CONC 33.4 g/dL (32.0-36.0); Mean Corpuscular Hemoglobin 32.9 pg (27.0-31.0); Mean Corpuscular Volume 98.5 fL (78.0-98.0); Mean Platelet Volume 7.4 fL (7.4-10.4); Platelet Count 84 thou/uL (130-400); RBC Distribution Width 14.6 % (11.5-14.5); Red Blood Cell (RBC) Count 2.83 mill/uL (4.20-5.40); White Blood Cell (WBC) Count 5.1 thou/uL (4.8-10.8)
[2019-04-06 06:42] LABS: Anion Gap 15 mmol/L (10-20); BUN (Urea Nitrogen) 33 mg/dL (9.8-20.1); Calc. Creatinine Clearance 40 mL/min (70-130); Calcium 8.4 mg/dL (7.8-10.44); Carbon Dioxide 25 mmol/L (23-31); Chloride 94 mmol/L (98-107); Estimated GFR-MDRD 29; Potassium 5.7 mmol/L (3.5-5.1); Sodium 128 mmol/L (136-145)
[2019-04-06 06:45] LABS: Glucose 586 mg/dL (83-110)
[2019-04-06 06:48] LABS: Troponin I 0.014 ng/mL (< 0.028)
[2019-04-06] MEDS ORDERED: Insulin Glargine 15 UNITS in Pre-Filled Syringe 1 EACH SC SCH ×2 (07:00→18:15)
[2019-04-06] MEDS: Famotidine 20 MG TAB PO SCH (08:58)
[2019-04-06 12:47] LABS: Glucose Accucheck Confirmation 626 mg/dl (83-110)
[2019-04-06] MEDS ORDERED: Albuterol Sulfate 2.5 mg/3 ml Neb NEB PRN (12:51)
[2019-04-06] MEDS: HumaLOG 300 UNITS/3 ML VIAL SC PRN ×2 (13:03→16:10)
[2019-04-06] MEDS ORDERED: traMADol HCl 50 MG TAB PO PRN (13:53)
[2019-04-06] MEDS: Furosemide 40 MG/4 ML VIAL SLOW IVP SCH (15:59)
[2019-04-06 16:42] LABS: Bilirubin Negative (Negative); Blood, Urine Small (Negative); Clarity CLEAR (Clear); Glucose, Urine (Dipstick) >=1000 mg/dL (Negative); Leukocyte Small (Negative); Nitrite Positive (Negative); Protein, Urine (Dipstick) Negative (Neg-Trace); Specific Gravity, Urine 1.018 (1.002-1.036); Urobilinogen 0.2 mg/dL (0.2-1.0); pH, Urine 5.5 (5.0-9.0)
[2019-04-06 16:44] LABS: Bacteria/HPF 1+ HPF (None Seen); Hyaline Casts/LPF 0-3 HYALINE CAST LPF (0-3 Hyaline); Squamous Epithelial None Seen HPF (0-3); WBC/HPF 21-50 HPF (0-3)
[2019-04-06 16:47] LABS: Urine Culture Reflex Yes Yes
[2019-04-06] MEDS ORDERED: Dronedarone HCl 400 MG TAB PO SCH (17:00)
--- NOTE | 2019-04-06 17:19 | PRG ---
DATE OF SERVICE: 04/06/2019 SUBJECTIVE: Ms. Anguiano is a pleasant 83-year-old alf resident, who is nonambulatory, who has a past medical history significant for severe COPD and chronic diastolic heart failure, who presented to the hospital with complaints of shortness of breath and hypoxemia, which was noted at her alf residence. The patient continues to remain short of breath. She continues to complain of some orthopnea. She is able to converse with me, however, appears just mildly labored when she has to speak in long phrases. She denies any chest pain. She denies any nausea or vomiting. She denies any cough, fever, or chills. Her appetite remains good. OBJECTIVE: VITAL SIGNS: Blood pressure 132/67, O2 saturation is 94% on 2 L nasal cannula, respirations 20, pulse 80. The patient is afebrile at 98.3. GENERAL: The patient is a moderately obese female, sitting up in bed, eating lunch. She is in no obvious distress, although appears mildly tachypneic with labor and talking. HEENT: Head is atraumatic and normocephalic. Mucous membranes are moist. NECK: No obvious JVD. Trachea is midline. CV: S1 and S2. Regular rate and rhythm. No appreciable murmurs, rubs, or gallops. LUNGS: Regular respiratory pattern, the patient has overall very poor vesicular breath sounds and air movement, can appreciate decreased breath sounds at the bases, inspiratory crackles. ABDOMEN: Positive bowel sounds. Soft, obese, and nontender. EXTREMITIES: +1 edema bilaterally, pitting. SKIN: Warm and dry. No rashes. NEUROLOGIC: Alert and oriented x3. Cranial nerves 2 through 12 grossly intact. The patient is nonfocal. LABORATORY DATA: Hemoglobin 9.3, hematocrit 27.9, white blood cell count is 5.1. Sodium 128, potassium 5.7, chloride 94, creatinine 1.68. Troponin was indeterminate. BNP was 306. ASSESSMENT: 1. Shortness of breath secondary to acute on chronic obstructive pulmonary disease exacerbation, although mild volume overload may be contributing, given BNP of greater than 300, pedal edema, and history of diastolic dysfunction. 2. Acute on chronic respiratory failure and chronic obstructive pulmonary disease. 3. Hyponatremia, chronic, although slightly lower today than previous visits with level of 128. 4. Mild hyperkalemia. 5. History of healthcare acquired pneumonia with two admissions in January 2019, no evidence of infectious process in this hospitalization. 6. Uncontrolled type 2 diabetes mellitus. 7. Chronic kidney disease stage 3, stable. PLAN: We will provide IV diuresis, along with continued treatment for acute chronic obstructive pulmonary disease exacerbation, and we will add as needed albuterol nebs. We will obtain serum and urine osmolalities along with urine sodium. As mentioned, we will start IV Lasix and I will recheck a serum potassium this afternoon, and treat appropriately. Add q 4 hour Accuchecks and D/C IV steroids and will start oral taper. The care of this patient has been discussed with Dr. Wetzel, who agrees with care as outlined above. Job ID: [id number] [facility]
[2019-04-06 17:31] LABS: Potassium 4.7 mmol/L (3.5-5.1)
[2019-04-06] MEDS: Pregabalin 50 MG CAP PO SCH (20:18)
[2019-04-06] MEDS ORDERED: Citalopram 20 MG TAB PO SCH (21:00)
[2019-04-07 05:49] LABS: Anion Gap 16 mmol/L (10-20); BUN (Urea Nitrogen) 35 mg/dL (9.8-20.1); Calc. Creatinine Clearance 41 mL/min (70-130); Calcium 8.6 mg/dL (7.8-10.44); Carbon Dioxide 27 mmol/L (23-31); Chloride 91 mmol/L (98-107); Estimated GFR-MDRD 30; Glucose 385 mg/dL (83-110); Potassium 4.6 mmol/L (3.5-5.1); Sodium 129 mmol/L (136-145)
[2019-04-07] MEDS: Furosemide 40 MG/4 ML VIAL SLOW IVP SCH ×2 (06:10→13:44)
[2019-04-07] MEDS: HumaLOG 300 UNITS/3 ML VIAL SC PRN ×3 (06:27→18:39)
[2019-04-07] MEDS ORDERED: predniSONE 20 MG TAB PO SCH (08:00)
[2019-04-07] MEDS ORDERED: Dronedarone HCl 400 MG TAB PO SCH ×2 (08:00→17:00)
[2019-04-07] MEDS: Famotidine 20 MG TAB PO SCH (08:54)
[2019-04-07] MEDS: Pregabalin 50 MG CAP PO SCH (08:55)
[2019-04-07] MEDS ORDERED: Folic Acid 1 MG TAB PO SCH (09:00)
[2019-04-07] MEDS ORDERED: Insulin Glargine 15 UNITS in Pre-Filled Syringe 1 EACH SC SCH (09:00)
[2019-04-07] MEDS ORDERED: cefTRIAXone\\ROCEPHIN 1 GM in Sodium Chloride 0.9% 100 ML IVPB SCH (13:00)
[2019-04-07] MEDS ORDERED: Nitroglycerin 0.4 MG TAB (25 Tab Bottle) SL PRN (14:04)
[2019-04-07 19:26] VITALS: BP 104/65; TEMP 98.5
--- NOTE | 2019-04-08 06:32 | DIS ---
DATE OF ADMISSION: 04/06/2019 DATE OF DISCHARGE: 04/07/2019 CHIEF COMPLAINT ON ADMISSION: Hypoxemia and shortness of breath. DISCHARGE DIAGNOSES: 1. Shortness of breath secondary to combined acute on chronic obstructive pulmonary disease exacerbation along with acute on chronic diastolic heart failure exacerbation, resolved. 2. Chronic obstructive pulmonary disease with home oxygen requirement of 2 L O2 via nasal cannula. 3. Mild hyperkalemia, resolved. 4. Chronic hyponatremia, stable. 5. Urinary tract infection. 6. History of healthcare-acquired pneumonia with two admissions in January 2019, no evidence of infectious process this hospitalization. 7. Uncontrolled type 2 diabetes mellitus. 8. Chronic kidney disease, stage 3, stable. BRIEF HOSPITAL COURSE: The patient is a pleasant 83-[facility]-old [facility] resident, who is nonambulatory, who has a past medical history significant for severe COPD and chronic diastolic heart failure, who presented to the hospital with complaints of shortness of breath and hypoxemia, which was noted at her [facility] residence. She was brought to our facility for further workup and care. Initially, the [facility] found that her O2 sats were in the 50s, and EMS was called. When they arrived, her O2 saturation was in the 80s, her O2 was increased to 8 L and she was given DuoNebs with O2 sat improved to 96%. She was brought to our facility for further workup and care. She was treated with IV steroids and breathing treatments, but remains short of breath. Chest x-ray positive for pulmonary vascular congestion and small bilateral pleural effusions. The patient was initiated on IV diuresis, with much improvement in the patient's symptoms. She did diurese well. She was diagnosed with UTI during her stay with urinalysis positive for leukocyte esterase, urine bacteria, nitrite, and positive wbc. She was treated empirically with Rocephin. The cultures are still pending at the time of discharge. The patient was seen this morning and is back to her baseline breathing. She feels much improved. DISCHARGE CONDITION: Stable. DISCHARGE DISPOSITION: [facility]. DISCHARGE INSTRUCTIONS AND FOLLOWUP: The patient will continue her home medications as they came from the [facility]. Pertinent medications will be that she will continue her 20 mg of furosemide b.i.d. She will be discharged on 10 mg of prednisone, which she should continue for one week only. She will also be discharged on antibiotic therapy for her UTI with cefdinir 300 mg p.o. q.12 hours x7 days. The patient is at high risk for complications for her UTI and so this will be treated with pending sensitivities. I have counseled the patient extensively on fluid restriction as well as low-sodium diet. All questions were answered. The patient will be discharged home in good condition today. Care of this patient was discussed with Dr. Worthy, who agrees with the above. Job ID: [id number]
--- NOTE | 2019-04-09 09:15 | EKG ---
Test Reason : C/P Blood Pressure : / mmHG Vent. Rate : 080 BPM Atrial Rate : 080 BPM P-R Int : 160 ms QRS Dur : 134 ms QT Int : 418 ms P-R-T Axes : 060 101 034 degrees QTc Int : 482 ms Normal sinus rhythm Right bundle branch block Abnormal ECG When compared with ECG of 05-APR-2019 21:24, (Unconfirmed) No significant change was found Confirmed by RONDA VELIZ, SAbby ([id number]) on 04/09/2019 9:14:53 AM Referred By: PEYMAN Confirmed By:DR. Gregg BOND MD
--- NOTE | 2019-04-09 17:00 | EKG ---
Test Reason : Blood Pressure : / mmHG Vent. Rate : 070 BPM Atrial Rate : 070 BPM P-R Int : 182 ms QRS Dur : 130 ms QT Int : 434 ms P-R-T Axes : 074 095 033 degrees QTc Int : 468 ms Normal sinus rhythm Right bundle branch block Abnormal ECG Confirmed by ISMAEL GARCIA DO ([id number]), visual effects editor ANALI LY ([id number]) on 04/09/2019 4:59:57 PM Referred By: Confirmed By:ISMAEL GARCIA DO
== END 2019-04-07 20:40 | disposition home or self-care (01) ==
LOC: ERS 20:45 → T4-B 04-06 00:59
PROVIDERS: ADMIT Hospitalist; ATTEND Hospitalist
DX: J44.1 Chronic obstructive pulmonary disease with (acute) exacerbation (principal); I13.0 Hypertensive heart and chronic kidney disease with heart failure and stage 1 through stage 4 chronic kidney disease, or unspecified chronic kidney disease; I50.33 Acute on chronic diastolic (congestive) heart failure; N18.3 Chronic kidney disease, stage 3 (moderate); D63.1 Anemia in chronic kidney disease; J96.21 Acute and chronic respiratory failure with hypoxia; E11.22 Type 2 diabetes mellitus with diabetic chronic kidney disease; E87.5 Hyperkalemia; E87.1 Hypo-osmolality and hyponatremia; N39.0 Urinary tract infection, site not specified; D50.9 Iron deficiency anemia, unspecified; Z99.81 Dependence on supplemental oxygen; Z87.01 Personal history of pneumonia (recurrent); Z87.891 Personal history of nicotine dependence; Z88.5 Allergy status to narcotic agent; Z88.6 Allergy status to analgesic agent; Z79.4 Long term (current) use of insulin; Z79.51 Long term (current) use of inhaled steroids; Z79.899 Other long term (current) drug therapy
CPT/HCPCS: 71045; 80048 ×2; 80053; 81001; 82947; 82962 ×2; 83880; 83930; 83935; 84132; 84300; 84484 ×3; 85025 ×2; 87086; 93005 ×2; 94640 ×3; 96374; 96375 ×2; 96376 ×2; 99285; G0378 ×2; 36415; 36416; 93010; J0696; J1825; J1940; J2920; J3490; J7512; J7611; J7620

== ENCOUNTER 2019-04-27 16:07 | Observation (INO) | payer MEDICARE, MEDICAID ==
[2019-04-27 17:11] LABS: #Eosinphils 0.1 thou/uL (0.0-0.7); #Lymphocytes 1.3 thou/uL (1.20-3.40); #Monocytes 0.3 thou/uL (0.11-0.59); #Neutrophils 3.4 thou/uL (1.40-6.50); %Basophils 0.3 % (0.0-1.0); %Eosinophils 2.3 % (0.0-10.0); %Lymphocytes 25.1 % (21.0-51.0); %Monocytes 6.2 % (0.0-10.0); Hemoglobin 8.9 g/dL (12.0-16.0); Mean Corpuscular Hemoglobin 33.6 pg (27.0-31.0); Mean Corpuscular Volume 98.8 fL (78.0-98.0); Mean Platelet Volume 6.9 fL (7.4-10.4); Platelet Count 92 thou/uL (130-400); RBC Distribution Width 14.7 % (11.5-14.5); Red Blood Cell (RBC) Count 2.66 mill/uL (4.20-5.40); White Blood Cell (WBC) Count 5.2 thou/uL (4.8-10.8)
[2019-04-27 17:35] LABS: ALT (SGPT) 9 U/L (8-55); AST (SGOT) 11 U/L (5-34); Albumin 3.5 g/dL (3.4-4.8); Alkaline Phosphatase 69 U/L (40-150); Anion Gap 14 mmol/L (10-20); BUN (Urea Nitrogen) 28 mg/dL (9.8-20.1); Bilirubin, Total 0.5 mg/dL (0.2-1.2); Calc. Creatinine Clearance 0 mL/min (70-130); Calcium 8.6 mg/dL (7.8-10.44); Carbon Dioxide 27 mmol/L (23-31); Chloride 98 mmol/L (98-107); Estimated GFR-MDRD 26; Globulin 2.5 g/dL (2.4-3.5); Glucose 178 mg/dL (83-110); Potassium 5.1 mmol/L (3.5-5.1); Sodium 134 mmol/L (136-145)
--- NOTE | 2019-04-27 17:38 | RAD ---
rSINGLE VIEW OF THE CHEST: 04/27/19 COMPARISON: 04/05/19 HISTORY: Dyspnea. FINDINGS: Single view of the chest shows an enlarged but stable cardiomediastinal silhouette. There is elevatio n of the left hemidiaphragm. There may also be a small left pleural effusion. No significant change h as occurred compared to the prior exam. IMPRESSION: Stable exam. POS: C
[2019-04-27 19:48] LABS: Troponin I 0.015 ng/mL (< 0.028)
[2019-04-27] MEDS ORDERED: Ondansetron PF 4 MG/2 ML Vial IVP PRN (20:17)
[2019-04-27 20:54] VITALS: BMI 37.4
[2019-04-27 22:37] LABS: Troponin I Less than 0.010 ng/mL (< 0.028)
[2019-04-28] MEDS ORDERED: Insulin Regular 300 UNITS/3 ML VIAL SC PRN ×2 (01:38)
[2019-04-28] MEDS ORDERED: Calcium Carbonate 500 MG ChewTAB PO PRN (01:38)
[2019-04-28] MEDS ORDERED: Dextrose 50% Abboject 50 ML SYRINGE SLOW IVP PRN (01:38)
[2019-04-28] MEDS ORDERED: Dextrose 5% in Water 1,000 ML IV PRN (01:38)
[2019-04-28] MEDS ORDERED: Acetaminophen 325 MG TAB PO PRN (01:38)
[2019-04-28] MEDS ORDERED: PROVENTIL INHALER 6.7 G (200 INHALATIONS) INH PRN (01:44)
[2019-04-28] MEDS ORDERED: cloNIDine 0.1 MG TAB PO PRN (01:44)
--- NOTE | 2019-04-28 01:54 | HP ---
CHIEF COMPLAINT: Generalized body swelling. PRIMARY CARE PHYSICIAN: The patient is currently at [facility] under the care of Dr. Cervantes. HISTORY OF PRESENT ILLNESS: The patient is an 83-year-old female with chronic diastolic heart failure, CKD, atrial fibrillation, diabetes mellitus type 2, coronary artery disease, and physical deconditioning, presented to the emergency room from [facility] with above complaints. She was discharged from this facility 3 weeks ago with a diagnosis of COPD/CHF exacerbation. Over the past few days, the patient noticed bilateral lower extremity swelling along with weight gain. She also was short of breath on minimal exertion. She is currently on home oxygen at the nursing facility. She had cough, which was essentially dry. No fever or chills were reported. She was short of breath on lying down flat. She was transferred to this facility for volume overload. In the emergency room, initial vital signs showed temperature 97, respirations 20, pulse rate of 59 with a blood pressure of 104/39 with O2 saturation of 97% on 3 L nasal cannula. Her EKG showed sinus bradycardia with right bundle-branch block. PAST MEDICAL HISTORY: 1. Chronic diastolic heart failure. 2. COPD. 3. Chronic hypoxic respiratory failure, on home oxygen. 4. Diabetes mellitus type 2. 5. CKD stage 3. 6. Chronic anemia. 7. Physical deconditioning. The patient is wheelchair dependent. 8. Coronary artery disease. 9. Paroxysmal atrial fibrillation. 10. GERD. 11. Essential tremors. 12. Hypertension. 13. History of pneumonia earlier this year. PAST SURGICAL HISTORY: 1. Appendectomy. 2. Cholecystectomy. 3. Carpal tunnel release. 4. Hysterectomy. 5. Left knee surgery. 6. Cardiac catheterization in 2013 that showed minimal coronary artery disease. ALLERGIES: THE PATIENT IS ALLERGIC TO CODEINE AND ASPIRIN. CURRENT MEDICATIONS: At [facility]; 1. Breo Ellipta 100/25 daily. 2. Fosamax every 7 days. 3. Incruse Ellipta daily. 4. Senokot S 1 tablet twice a day. 5. Gabapentin 300 mg 3 times a day. 6. Levemir 20 units daily. 7. Humalog sliding scale. 8. Lasix 20 mg twice a day. 9. Lyrica 50 mg b.i.d. 10. Magnesium 200 mg daily. 11. Metformin 500 mg daily. 12. MiraLAX 17 g daily. 13. Primidone 25 mg daily. 14. Protonix 20 mg daily. 15. Simvastatin 5 mg daily. SOCIAL HISTORY: The patient currently resides at [facility] in the long-term care. She is nonambulatory. Denies current use of tobacco or drug use. Occasionally she drinks wine. She has out of hospital DNR in the chart. However, at this time, she is requesting full code. She does not want to stay in the vegetative state however. She makes her own decision with the help of her family. FAMILY HISTORY: Positive for diabetes, hypertension, and heart problems. REVIEW OF SYSTEMS: All other review of systems was reviewed and were found negative. PHYSICAL EXAMINATION: VITAL SIGNS: As discussed above. GENERAL: An 83-year-old female in mild respiratory distress, able to complete short phrases. HEENT: Head atraumatic, normocephalic. Sclerae anicteric. Moist mucous membranes. No oral lesion. NECK: Supple. No JVD appreciated due to body habitus. HEART: S1, S2 present. Regular rate and rhythm. No significant rubs or gallops appreciated. No heaves or pulsation. LUNGS: Showed diminished air entry at bilateral bases with bibasilar rales. There was scattered rhonchi. No accessory muscle use. ABDOMEN: Obese, soft, nontender. Bowel sounds present. No rebound or guarding. EXTREMITIES: 2 to 3+ edema in bilateral lower extremity with mild erythema. No calf tenderness appreciated. NEUROLOGIC: Grossly nonfocal. Moves all 4 extremities. PSYCHIATRY: Alert, awake, oriented x3. SKIN: Warm and dry. LYMPH NODES: No palpable lymph nodes in the neck. PERIPHERAL VASCULAR: Radial pulses palpable bilaterally. MUSCULOSKELETAL: No joint swelling or tenderness. LABORATORY FINDINGS: WBC 5.2 with hemoglobin 8.9, hematocrit 26.3, platelet of 92. Chemistry showed sodium 134, potassium 5.1, chloride 98, bicarb 27, BUN 28, creatinine 1.84. Troponin was negative. BNP 183. Urine culture from last admission showed mixed alexandra. Chest x-ray by my review showed suspected pulmonary vascular congestion. EKG by my review as discussed above. Echocardiogram earlier this year showed diastolic dysfunction with ejection fraction 55% to 60%. IMPRESSION: 1. Acute on chronic diastolic heart failure exacerbation, probably secondary to noncompliance with fluid restriction. 2. Chronic kidney disease stage 3. 3. Diabetes mellitus type 2. 4. Hypertension. 5. Obesity with a body mass index of 37.4. 6. Chronic anemia. 7. Chronic thrombocytopenia. 8. Bilateral lower extremity edema with history of immobilization. 9. Peripheral neuropathy. 10. Essential tremor. 11. Hypertension. 12. Hyperlipidemia. 13. Chronic obstructive pulmonary disease. 14. Paroxysmal atrial fibrillation. PLAN: The patient is currently admitted to medical floor. We will continue monitoring on the medical floor for now. She is currently in sinus rhythm. I do not feel a necessity to transfer her to telemetry unit. We will start her on IV Lasix drip due to GFR of 29. I think she will develop renal failure if the start Lasix push. We will add fluid restriction. We will drug abuse counselor her on fluid restriction. We will resume insulin sliding scale along with Lantus. Hold metformin due to CKD. Daily labs. Nebulizer treatment as needed. Resume inhalers for COPD. Plan of care was discussed with the patient in detail, she stated understanding. Job ID: [id number]
[2019-04-28] MEDS ORDERED: Furosemide 100 MG in Sodium Chloride 0.9% 90 ML IVPB SCH (02:00)
[2019-04-28] MEDS: traMADol HCl 50 MG TAB PO PRN ×2 (03:05→11:20)
[2019-04-28 05:02] LABS: Anion Gap 12 mmol/L (10-20); BUN (Urea Nitrogen) 26 mg/dL (9.8-20.1); Calc. Creatinine Clearance 40 mL/min (70-130); Calcium 8.1 mg/dL (7.8-10.44); Carbon Dioxide 30 mmol/L (23-31); Chloride 98 mmol/L (98-107); Estimated GFR-MDRD 29; Glucose 185 mg/dL (83-110); Magnesium 1.9 mg/dL (1.6-2.6); Potassium 4.4 mmol/L (3.5-5.1); Sodium 136 mmol/L (136-145)
[2019-04-28] MEDS ORDERED: Mometasone/Formoterol 120 PUFF INHALER INH SCH (06:30)
[2019-04-28] MEDS: Ipratropium Bromide 2.5 ml Neb NEB SCH ×2 (07:03→13:33)
[2019-04-28] MEDS ORDERED: Dronedarone HCl 400 MG TAB PO SCH (08:00)
[2019-04-28] MEDS ORDERED: Ferrous Sulfate 325 MG TAB PO SCH (08:00)
--- NOTE | 2019-04-28 08:43 | ULT ---
BILATERAL LOWER EXTREMITY VENOUS DOPLER ULTRASOUND: HISTORY: Bilateral lower extremity edema and immobilization. TECHNIQUE: Bull scale ultrasound with color flow and spectral Doppler imaging of the deep venous systems of the lower extremities is performed bilaterally. FINDINGS: There is good flow, compression, and augmentation noted in the common femoral, femoral, deep femoral, popliteal, posterior tibial, and greater saphenous veins on either side. IMPRESSION: No evidence of deep vein thrombosis in either lower extremity. POS: OFF
[2019-04-28] MEDS ORDERED: Spiriva 18 MCG CAP (Box of 5 Caps) INH SCH (09:00)
[2019-04-28] MEDS ORDERED: Pregabalin 50 MG CAP PO SCH (09:00)
[2019-04-28] MEDS ORDERED: Non-Formulary Item 1 EACH (Umeclidinium Bromide [Incruse Ellipta] 1 INH) IH SCH (09:00)
[2019-04-28] MEDS ORDERED: Senokot S 8.6-50 MG TAB PO SCH (09:00)
[2019-04-28] MEDS ORDERED: Non-Formulary Item 1 EACH (Fluticasone/Vilanterol [Breo Ellipta] 1 INH) IH SCH (09:00)
[2019-04-28] MEDS ORDERED: Artificial Tear Sol 15 ML BOT EA EYE SCH (09:00)
[2019-04-28] MEDS ORDERED: Non-Formulary Item 1 EACH (Budesonide [Pulmicort Flexhaler] 2 PUFF) INH SCH (09:00)
[2019-04-28] MEDS ORDERED: Nystatin Powder 15 GM BOT TOP SCH (09:00)
[2019-04-28] MEDS ORDERED: Metoprolol Tartrate 25 MG TAB PO SCH (09:00)
[2019-04-28] MEDS ORDERED: Polyethylene Glycol 3350 17 GM Packet PO SCH (09:00)
[2019-04-28] MEDS ORDERED: Folic Acid 1 MG TAB PO SCH (09:00)
[2019-04-28 16:27] LABS: Anion Gap 13 mmol/L (10-20); BUN (Urea Nitrogen) 25 mg/dL (9.8-20.1); Calc. Creatinine Clearance 45 mL/min (70-130); Calcium 8.4 mg/dL (7.8-10.44); Carbon Dioxide 31 mmol/L (23-31); Chloride 96 mmol/L (98-107); Estimated GFR-MDRD 30; Glucose 148 mg/dL (83-110); Potassium 4.5 mmol/L (3.5-5.1); Sodium 135 mmol/L (136-145)
[2019-04-28 18:04] VITALS: BP 106/62; TEMP 97.6
[2019-04-28] MEDS ORDERED: Citalopram 20 MG TAB PO SCH (21:00)
[2019-04-28] MEDS ORDERED: Primidone 50 MG TAB PO SCH (21:00)
[2019-04-28] MEDS ORDERED: Simvastatin 5 MG TAB PO SCH (21:00)
== END 2019-04-28 16:15 ==
LOC: ERS 16:07 → SURG A 20:18
PROVIDERS: ADMIT Emergency Medicine; ATTEND Emergency Medicine
DX: I13.0 Hypertensive heart and chronic kidney disease with heart failure and stage 1 through stage 4 chronic kidney disease, or unspecified chronic kidney disease (principal); E11.22 Type 2 diabetes mellitus with diabetic chronic kidney disease; N18.3 Chronic kidney disease, stage 3 (moderate); I50.33 Acute on chronic diastolic (congestive) heart failure; D63.1 Anemia in chronic kidney disease; D69.6 Thrombocytopenia, unspecified; E66.9 Obesity, unspecified; E11.42 Type 2 diabetes mellitus with diabetic polyneuropathy; G25.0 Essential tremor; J44.9 Chronic obstructive pulmonary disease, unspecified; E78.5 Hyperlipidemia, unspecified; J96.11 Chronic respiratory failure with hypoxia; I48.0 Paroxysmal atrial fibrillation; I25.10 Atherosclerotic heart disease of native coronary artery without angina pectoris; K21.9 Gastro-esophageal reflux disease without esophagitis; Z99.81 Dependence on supplemental oxygen; Z87.891 Personal history of nicotine dependence; Z68.41 Body mass index [BMI] 40.0-44.9, adult; Z98.890 Other specified postprocedural states; Z88.6 Allergy status to analgesic agent; Z88.5 Allergy status to narcotic agent; Z79.4 Long term (current) use of insulin; Z79.899 Other long term (current) drug therapy
CPT/HCPCS: 71045; 80048 ×2; 80053; 82962; 83735; 83880; 84484 ×3; 85025; 93005; 93970; 94640 ×3; 96365; 96366; 99285; G0378 ×2; 36415; 36416; J1815; J1940; J3490

== ENCOUNTER 2019-05-01 14:13 | Inpatient (IN) | payer MEDICARE, MEDICAID ==
--- NOTE | 2019-05-01 15:14 | RAD ---
Exam: Chest one view HISTORY:Fever. Shortness of breath. Comparison: 04/27/2019 FINDINGS: Cardiac silhouette:Cardiomegaly. Elongation aorta. Pulmonary vessels: Slightly prominent. Costophrenic angles: Persistent opacification the left lung base due to pleural and parenchymal leonard es. LUNGS: Persistent opacification of the left lung base Pneumothorax: None Osseous abnormalities: None IMPRESSION: 1. Cardiomegaly. Persistent opacification of the left lung base due to pleural and parenchymal change s. 2. Continued surveillance.
[2019-05-01] MEDS ORDERED: Piperacillin/Tazobactam 3.375 GM VIAL ONE (15:21)
[2019-05-01 15:39] LABS: #Lymphocytes 0.5 thou/uL (1.20-3.40); #Monocytes 0.4 thou/uL (0.11-0.59); #Neutrophils 5.5 thou/uL (1.40-6.50); %Eosinophils 0.6 % (0.0-10.0); %Lymphocytes 7.4 % (21.0-51.0); %Monocytes 6.9 % (0.0-10.0); %Neutrophils 85.1 % (42.0-75.0); Hemoglobin 9.1 g/dL (12.0-16.0); Mean Corpuscular HGB CONC 33.2 g/dL (32.0-36.0); Mean Corpuscular Hemoglobin 33.4 pg (27.0-31.0); Mean Platelet Volume 6.9 fL (7.4-10.4); Platelet Count 105 thou/uL (130-400); RBC Distribution Width 14.4 % (11.5-14.5); Red Blood Cell (RBC) Count 2.71 mill/uL (4.20-5.40); White Blood Cell (WBC) Count 6.4 thou/uL (4.8-10.8)
[2019-05-01 15:48] LABS: ALT (SGPT) 9 U/L (8-55); AST (SGOT) 8 U/L (5-34); Albumin 3.4 g/dL (3.4-4.8); Alkaline Phosphatase 68 U/L (40-150); Anion Gap 16 mmol/L (10-20); BUN (Urea Nitrogen) 28 mg/dL (9.8-20.1); Bilirubin, Total 0.6 mg/dL (0.2-1.2); Calc. Creatinine Clearance 0 mL/min (70-130); Calcium 8.1 mg/dL (7.8-10.44); Carbon Dioxide 30 mmol/L (23-31); Chloride 96 mmol/L (98-107); Estimated GFR-MDRD 29; Globulin 2.7 g/dL (2.4-3.5); Glucose 208 mg/dL (83-110); Potassium 4.7 mmol/L (3.5-5.1); Protein, Total 6.1 g/dL (6.0-8.3); Sodium 137 mmol/L (136-145)
[2019-05-01 16:36] LABS: Bilirubin Negative (Negative); Blood, Urine Small (Negative); Clarity CLOUDY (Clear); Glucose, Urine (Dipstick) Negative (Negative); Leukocyte Large (Negative); Nitrite Negative (Negative); Protein, Urine (Dipstick) 30 mg/dL (Neg-Trace); Urobilinogen 0.2 mg/dL (0.2-1.0)
[2019-05-01 16:38] LABS: Bacteria/HPF 2+ HPF (None Seen); Hyaline Casts/LPF 4-6 HYALINE CAST LPF (0-3 Hyaline); Pathc Cast-AUWi Flag 1.76 (0-2.49); RBC/HPF 0-3 HPF (0-3); Squamous Epithelial 0-3 HPF (0-3)
[2019-05-01] MEDS ORDERED: cefTRIAXone\\ROCEPHIN 2 GM VIAL ONE (17:53)
[2019-05-01 19:22] LABS: Lactic Acid 1.7 mmol/L (0.5-2.2)
[2019-05-01] MEDS ORDERED: Acetaminophen 650 MG Suppository PR PRN (20:09)
[2019-05-01 21:29] VITALS: BMI 38.4
[2019-05-01] MEDS: Senokot S 8.6-50 MG TAB PO SCH (21:42)
[2019-05-01] MEDS: Famotidine/PF 20 mg/2ml Vial SLOW IVP SCH (21:43)
[2019-05-01 21:49] LABS: Troponin I Less than 0.010 ng/mL (< 0.028)
--- NOTE | 2019-05-01 22:25 | HP ---
CHIEF COMPLAINT: Fever and chills. HISTORY OF PRESENT ILLNESS: Ms. Anguiano is a very pleasant 83-year-old woman, who presents after feeling suddenly unwell early this afternoon. She states she had a good morning, had been decorating with her friend and then was eating lunch when suddenly she experienced severe chills. She reports feeling slightly short of breath due to shaking and was noted to have a temperature with EMS of 103. She denies having any cough. Denies any chest pain. She was recently discharged from the hospital after being treated for CHF exacerbation and states her lower extremity edema did improve and remained stable. She complains of burning sensation with urination. Denies any nausea or vomiting. Has not had any loose stools and did have a normal bowel movement earlier today. In the emergency department, she underwent laboratory studies which showed a normal white blood count and a lactic acid of 2.6. She underwent a urinalysis that showed large leukocyte esterase, greater than 50 white blood cells, and 2+ bacteria. She had a chest x-ray done as well and was started on IV antibiotics with Zosyn, vancomycin, and ceftriaxone. The chest x-ray has now been reported on and shows cardiomegaly with persistent opacification of the left lung base due to pleural and parenchymal changes. No definite evidence of pneumonia. At this present time, the patient states her main complaint is feeling generally weak. She states she was feeling very strong early this morning. REVIEW OF SYSTEMS: All other review of systems are negative. PAST MEDICAL HISTORY: 1. Type 2 diabetes mellitus. 2. Hypertension. 3. CKD, stage 3. 4. CHF. 5. COPD. 6. Coronary artery disease. 7. History of atrial fibrillation. PAST SURGICAL HISTORY: 1. Appendectomy. 2. Carpal tunnel surgery. 3. Cholecystectomy. 4. Hysterectomy. 5. Left knee replacement. 6. Back surgery in April 2019. SOCIAL HISTORY: The patient denies any smoking, alcohol use, or illicit drug use. ALLERGIES: 1. ASPIRIN. 2. CODEINE SULFATE. CURRENT MEDICATIONS: 1. Celexa. 2. Folic acid. 3. Iron. 4. Metformin. 5. Pantoprazole. 6. Simvastatin. 7. Furosemide. 8. Lyrica. 9. Metoprolol tartrate. 10. Multaq. 11. Potassium chloride. 12. Magnesium hydroxide. 13. MiraLAX. 14. Fosamax. 15. NovoLog. 16. Mysoline. 17. Prednisone. 18. Levemir. 19. Senna. 20. Gabapentin. 21. Breo Ellipta. PHYSICAL EXAMINATION: GENERAL: The patient is obese, found sleeping on the trolley, easily awoken, but appears generally fatigued. HEENT: Normocephalic and atraumatic. Pupils are equal, round, and reactive to light. Sclerae without icterus. Oropharynx is clear. NECK: Supple. LUNGS: Clear to auscultation bilaterally. CARDIAC: Distant heart sounds. No chest wall tenderness. ABDOMEN: Obese, soft, nontender, nondistended. No guarding or rigidity. Normoactive bowel sounds present. EXTREMITIES: With +2 pitting edema bilaterally, per the patient stable. No evidence of cellulitis. SKIN: Without rash or jaundice. LABORATORY DATA: White blood count 6.4, hemoglobin 9.1, hematocrit 27.3, platelets 105. Sodium 137, potassium 4.7, anion gap 16, BUN 28, creatinine 1.69, GFR 29, glucose 208, lactic acid 2.6, calcium 8.1, total bilirubin 0.6, AST 8, ALT 9, alkaline phosphatase 68. Troponin negative. BNP 203.3. Albumin 3.4. Urinalysis is positive for 30 of protein, small amount of blood, large leukocyte esterase, greater than 50 white blood cells, 2+ bacteria, 4 to 6 hyaline casts. IMAGING DATA: Chest x-ray done as mentioned above in HPI. IMPRESSION AND PLAN: Ms. Anguiano is an 83-year-old woman, who is being admitted for management of the following. 1. Urinary tract infection. We have requested a urine culture and we will continue antibiotics with Zosyn only. No definite evidence of pneumonia on chest x-ray. The patient also with dysuria. Therefore, her generalized weakness, fever, and chills are due to development of urinary tract infection. 2. Diabetes mellitus. We will initiate on insulin sliding scale and monitor her blood glucose. 3. Chronic kidney disease. Renal function at baseline. The patient received 500 mL of normal saline in the emergency department. We will continue gentle hydration. 4. Hypertension. We will resume home medications once verified. 5. Shortness of breath. The patient known to have COPD. She states she feels she is at her baseline. We will provide DuoNebs and monitor. We will resume her normal dose of Lasix once verified. 6. Gastrointestinal prophylaxis. 7. Deep venous thrombosis prophylaxis with CHRISTINA hose stockings. 8. Code status is full. The patient's surrogate decision maker is her daughter, Kristine Case. The patient's case discussed with attending, Dr. Soria, who agrees upon with plan of care as described above. Job ID: [id number] MTDD
[2019-05-01] MEDS: Piperacillin/Tazobactam 2.25 GM in Sodium Chloride 0.9% 100 ML IVPB SCH (23:00)
[2019-05-01] MEDS ORDERED: Alendronate Sodium 70 mg Tablet PO SCH (23:00)
[2019-05-01] MEDS ORDERED: Loratadine 10 MG TAB PO PRN (23:15)
[2019-05-01] MEDS ORDERED: Citalopram 20 MG TAB PO SCH (23:15)
[2019-05-01] MEDS ORDERED: Primidone 50 MG TAB PO SCH (23:15)
[2019-05-01] MEDS ORDERED: Metoprolol Tartrate 25 MG TAB PO SCH (23:15)
[2019-05-01] MEDS ORDERED: Gabapentin 300 MG CAP PO SCH (23:15)
[2019-05-01] MEDS ORDERED: Furosemide 20 MG TAB PO SCH (23:15)
[2019-05-02] MEDS: Ipratropium Bromide 2.5 ml Neb NEB SCH ×5 (02:24→23:08)
[2019-05-02] MEDS: Piperacillin/Tazobactam 2.25 GM in Sodium Chloride 0.9% 100 ML IVPB SCH ×4 (04:24→21:30)
[2019-05-02] MEDS: Acetaminophen 325 MG TAB PO PRN (04:28)
[2019-05-02 05:51] LABS: #Eosinphils 0.1 thou/uL (0.0-0.7); #Lymphocytes 0.6 thou/uL (1.20-3.40); #Monocytes 0.4 thou/uL (0.11-0.59); %Eosinophils 1.2 % (0.0-10.0); %Monocytes 9.8 % (0.0-10.0); %Neutrophils 73.9 % (42.0-75.0); Mean Corpuscular HGB CONC 32.8 g/dL (32.0-36.0); Mean Corpuscular Hemoglobin 33.2 pg (27.0-31.0); Mean Platelet Volume 6.8 fL (7.4-10.4); Platelet Count 88 thou/uL (130-400); RBC Distribution Width 14.5 % (11.5-14.5)
[2019-05-02 06:11] LABS: Anion Gap 13 mmol/L (10-20); BUN (Urea Nitrogen) 27 mg/dL (9.8-20.1); Calc. Creatinine Clearance 46 mL/min (70-130); Calcium 8.2 mg/dL (7.8-10.44); Carbon Dioxide 31 mmol/L (23-31); Chloride 100 mmol/L (98-107); Estimated GFR-MDRD 33; Glucose 226 mg/dL (83-110); Potassium 4.5 mmol/L (3.5-5.1); Sodium 139 mmol/L (136-145)
[2019-05-02] MEDS ORDERED: Dextrose 50% Abboject 50 ML SYRINGE IVP PRN (06:45)
[2019-05-02] MEDS ORDERED: Dextrose 5% in Water 1,000 ML IV PRN (06:45)
[2019-05-02] MEDS: Ferrous Sulfate 325 MG TAB PO SCH (08:51)
[2019-05-02] MEDS: Furosemide 20 MG TAB PO SCH ×2 (08:51→20:37)
[2019-05-02] MEDS: Senokot S 8.6-50 MG TAB PO SCH ×2 (08:51→20:41)
[2019-05-02] MEDS: predniSONE 5 MG TAB PO SCH (08:51)
[2019-05-02] MEDS: Metoprolol Tartrate 25 MG TAB PO SCH ×2 (08:52→20:40)
[2019-05-02] MEDS: Polyethylene Glycol 3350 17 GM Packet PO SCH (08:53)
[2019-05-02] MEDS: Folic Acid 1 MG TAB PO SCH (08:53)
[2019-05-02] MEDS: Dronedarone HCl 400 MG TAB PO SCH ×2 (08:57→17:11)
[2019-05-02] MEDS: Gabapentin 300 MG CAP PO SCH ×2 (11:15→17:11)
[2019-05-02] MEDS: Artificial Tear Sol 15 ML BOT EA EYE SCH ×2 (12:48→20:45)
[2019-05-02] MEDS: HumaLOG 300 UNITS/3 ML VIAL SC PRN ×3 (12:48→20:50)
--- NOTE | 2019-05-02 16:15 | PDOC.PN ---
- Subjective Encounter Start Date: 05/02/19 Encounter Start Time: 16:13 Ms. Anguiano was seen today in follow-up of UTI. She does not have any new complaints. She says she feels much better today than she did yesterday. - Objective Resuscitation Status - Order Detail: 05/01/19 20:09 Resuscitation Status Routine Co-Sign Provider: Resuscitation Status: FULL: Full Resuscitation MAR Reviewed: Yes Vital Signs & Weight: Vital Signs (12 hours) Temp Pulse Resp BP Pulse Ox 05/02/19 12:00 98.1 F 60 12 129/63 95 05/02/19 08:00 98.5 F 64 14 110/67 95 05/02/19 06:46 65 95 Weight Weight 231 lb 0.711 oz I&O: 05/01/19 05/02/19 05/03/19 06:59 06:59 06:59 Intake Total 600 Output Total 400 Balance 200 Result Diagrams: 05/02/19 05:34 05/02/19 05:34 Additional Labs: Accuchecks 05/02/19 05/02/19 11:27 04:25 POC Glucose 272 H 237 H Phys Exam - Physical Examination HEENT: PERRLA Respiratory: no wheezing, no rales, no rhonchi, clear to auscultation bilateral Cardiovascular: RRR, no significant murmur, no rub Gastrointestinal: soft, non-tender, no distention, positive bowel sounds Musculoskeletal: no edema Dx/Plan (1) UTI (urinary tract infection) Status: Acute Comment: treated (2) Pancytopenia Code(s): D61.818 - OTHER PANCYTOPENIA Status: Acute (3) CAD (coronary artery disease) Code(s): I25.10 - ATHSCL HEART DISEASE OF [place] CORONARY ARTERY W/O ANG PCTRS Status: Chronic Comment: (4) CKD (chronic kidney disease) stage 3, GFR 30-59 ml/min Status: Chronic (5) Obesity (BMI 30.0-34.9) Code(s): E66.9 - OBESITY, UNSPECIFIED Status: Chronic (6) Decubitus ulcer, stage 2 Code(s): L89.92 - PRESSURE ULCER OF UNSPECIFIED SITE, STAGE 2 Status: Acute (7) Diabetes type 2, controlled Code(s): E11.9 - TYPE 2 DIABETES MELLITUS WITHOUT COMPLICATIONS Status: Chronic - Plan * UTI- continue the current antibiotics ( Zosyn)- await culture results * Pancytopenia- she has an elevated MCV- will check B12 and folate level * Stage 2 decubitus ( patient is non-ambulatory, present on admission) continue local wound care * DM- blood glucose is stable * CKD- stable * CAD- stable.
[2019-05-02] MEDS ORDERED: cefTRIAXone\\ROCEPHIN 1 GM in Sodium Chloride 0.9% 100 ML IVPB SCH (18:00)
[2019-05-02] MEDS: Citalopram 20 MG TAB PO SCH (20:38)
[2019-05-02] MEDS: Simvastatin 5 MG TAB PO SCH (20:39)
[2019-05-02] MEDS: Primidone 50 MG TAB PO SCH (20:42)
[2019-05-02] MEDS: Gabapentin 100 MG CAP PO SCH (20:43)
[2019-05-02] MEDS: traMADol HCl 50 MG TAB PO PRN (20:46)
[2019-05-02] MEDS: Famotidine/PF 20 mg/2ml Vial SLOW IVP SCH (20:46)
[2019-05-02 20:56] LABS: Folate (Folic Acid) 17.2 ng/mL (7.0-31.4)
[2019-05-03] MEDS ORDERED: Artificial Tear Sol 15 ML BOT EA EYE PRN (00:09)
[2019-05-03] MEDS: Piperacillin/Tazobactam 2.25 GM in Sodium Chloride 0.9% 100 ML IVPB SCH ×2 (03:59→09:27)
[2019-05-03] MEDS: HumaLOG 300 UNITS/3 ML VIAL SC PRN ×4 (05:13→22:00)
[2019-05-03] MEDS: Ipratropium Bromide 2.5 ml Neb NEB SCH ×4 (06:55→23:25)
[2019-05-03] MEDS ORDERED: Furosemide 20 MG TAB PO SCH (09:00)
[2019-05-03] MEDS: Artificial Tear Sol 15 ML BOT EA EYE SCH ×2 (09:27→19:40)
[2019-05-03] MEDS: Gabapentin 100 MG CAP PO SCH ×3 (09:28→19:42)
[2019-05-03] MEDS: Folic Acid 1 MG TAB PO SCH (09:28)
[2019-05-03] MEDS: Ferrous Sulfate 325 MG TAB PO SCH (09:28)
[2019-05-03] MEDS: Senokot S 8.6-50 MG TAB PO SCH ×2 (09:28→19:50)
[2019-05-03] MEDS: Metoprolol Tartrate 25 MG TAB PO SCH ×2 (09:29→19:42)
[2019-05-03] MEDS: Dronedarone HCl 400 MG TAB PO SCH ×2 (09:29→17:12)
[2019-05-03] MEDS: predniSONE 5 MG TAB PO SCH (09:29)
[2019-05-03] MEDS: Polyethylene Glycol 3350 17 GM Packet PO SCH (09:43)
--- NOTE | 2019-05-03 13:14 | PDOC.PN ---
- Subjective Encounter Start Date: 05/03/19 Encounter Start Time: 12:30 Subjective: feels better, no abd pain or nausea - Objective Resuscitation Status - Order Detail: 05/01/19 20:09 Resuscitation Status Routine Co-Sign Provider: Resuscitation Status: FULL: Full Resuscitation MAR Reviewed: Yes Vital Signs & Weight: Vital Signs (12 hours) Temp Pulse Resp BP Pulse Ox 05/03/19 11:00 97.9 F 53 L 18 121/71 100 05/03/19 07:26 98.1 F 60 20 123/71 100 05/03/19 06:55 58 L 16 98 05/03/19 04:00 98.2 F 63 16 109/66 95 Weight Weight 231 lb 0.711 oz I&O: 05/02/19 05/03/19 05/04/19 06:59 06:59 06:59 Intake Total 2636 Output Total 2125 Balance 511 Result Diagrams: 05/02/19 05:34 05/02/19 05:34 Additional Labs: Accuchecks 05/03/19 05/03/19 05/02/19 11:19 05:09 19:47 POC Glucose 252 H 171 H 255 H 05/02/19 05/02/19 16:28 11:27 POC Glucose 277 H 272 H Phys Exam - Physical Examination HEENT: PERRLA, moist MMs Neck: no JVD, supple Respiratory: no wheezing, no rales Cardiovascular: RRR, no significant murmur Gastrointestinal: soft, non-tender, positive bowel sounds Musculoskeletal: pulses present, edema present Neurological: non-focal, moves all 4 limbs Psychiatric: normal affect, A&O x 3 Dx/Plan (1) UTI (urinary tract infection) Status: Acute Qualifiers: Urinary tract infection type: acute cystitis Hematuria presence: without hematuria Qualified Code(s): N30.00 - Acute cystitis without hematuria (2) Anemia Code(s): D64.9 - ANEMIA, UNSPECIFIED Status: Chronic Qualifiers: Anemia type: unspecified type Qualified Code(s): D64.9 - Anemia, unspecified (3) Anxiety and depression Code(s): F41.9 - ANXIETY DISORDER, UNSPECIFIED; F32.9 - MAJOR DEPRESSIVE DISORDER, SINGLE EPISODE, UNSPECIFIED Status: Chronic (4) CAD (coronary artery disease) Code(s): I25.10 - ATHSCL HEART DISEASE OF [place] CORONARY ARTERY W/O ANG PCTRS Status: Chronic Qualifiers: Coronary Disease-Associated Artery/Lesion type: [place] artery [place] vs. transplanted heart: [place] heart Associated angina: without angina Qualified Code(s): I25.10 - Atherosclerotic heart disease of [place] coronary artery without angina pectoris Comment: (5) CKD (chronic kidney disease) stage 3, GFR 30-59 ml/min Status: Chronic (6) COPD (chronic obstructive pulmonary disease) Status: Chronic Qualifiers: COPD type: chronic bronchitis Comment: (7) Chronic respiratory failure with hypoxia Code(s): J96.11 - CHRONIC RESPIRATORY FAILURE WITH HYPOXIA Status: Chronic Comment: baseline 2-3 liter by nasal canula (8) DM2 (diabetes mellitus, type 2) Status: Chronic Qualifiers: Diabetes mellitus costume shop coordinator insulin use: with costume shop coordinator use Diabetes mellitus complication status: with kidney complications Diabetes mellitus complication detail: with chronic kidney disease Chronic kidney disease stage : stage 2 (mild) Qualified Code(s): E11.22 - Type 2 diabetes mellitus with diabetic chronic kidney disease; N18.2 - Chronic kidney disease, stage 2 (mild) ; Z79.4 - retirement (current) use of insulin (9) Dyslipidemia Code(s): E78.5 - HYPERLIPIDEMIA, UNSPECIFIED Status: Chronic (10) Hypertension Code(s): I10 - ESSENTIAL (PRIMARY) HYPERTENSION Status: Chronic Qualifiers: Hypertension type: essential hypertension Qualified Code(s): I10 - Essential (primary) hypertension (11) Paroxysmal atrial fibrillation Code(s): I48.0 - PAROXYSMAL ATRIAL FIBRILLATION Status: Chronic (12) Thrombocytopenia Code(s): D69.6 - THROMBOCYTOPENIA, UNSPECIFIED Status: Chronic - Plan is on cipro for uti based on culture results -: iv lasix x 3 doses prior to discharge -: is at baseline oxygen by nasal canula -: will be read for dc in am to snf at [facility] -: continue multaq, prednisone, lopressor, zocor, celexa, primidone * . Pt is wheel chair bound x 4 yrs now per patient. Review of Systems - Medications/Allergies Allergies/Adverse Reactions: Allergies Allergy/AdvReac Type Severity Reaction Status Date / Time codeine Allergy Severe throat Verified 04/28/19 02:01 swelling aspirin Allergy Intermediate Verified 04/28/19 02:01 Medications: Current Medications Acetaminophen (Tylenol) 650 mg PO Q4H PRN PRN Reason: Headache/Fever/Mild Pain (1-3) Last Admin: 05/02/19 04:28 Dose: 650 mg Acetaminophen (Tylenol) 650 mg [place] Q4H PRN PRN Reason: Headache/Fever/Mild Pain (1-3) Artificial Tears (Liquitears 15ml Bottle) 1 drop EA EYE BID [facility] Last Admin: 05/03/19 09:27 Dose: 1 drp Artificial Tears (Liquitears 15ml Bottle) 2 drop EA EYE QID PRN PRN Reason: Dry Eyes Last Admin: 05/03/19 00:13 Dose: 2 drop Ciprofloxacin (Cipro) 500 mg PO 0600,2000 [facility] Citalopram Hydrobromide (Celexa) 30 mg PO HS [facility] Last Admin: 05/02/19 20:38 Dose: 30 mg Dextrose/Water (Dextrose 50%) 25 gm IVP PRN PRN PRN Reason: HYPOGLYCEMIA PROTOCOL Dronedarone (Multaq) 400 mg PO BID-WM [facility] Last Admin: 05/03/19 09:29 Dose: 400 mg Famotidine (Pepcid) 20 mg SLOW IVP QPM [facility] Last Admin: 05/02/19 20:46 Dose: 20 mg Ferrous Sulfate (Feosol) 325 mg PO QAM [facility] Last Admin: 05/03/19 09:28 Dose: 325 mg Folic Acid (Folvite) 1 mg PO QAM [facility] Last Admin: 05/03/19 09:28 Dose: 1 mg Furosemide (Lasix) 20 mg SLOW IVP 0600,1400 [facility] Gabapentin (Neurontin) 300 mg PO TID [facility] Last Admin: 05/03/19 09:28 Dose: 300 mg Glucagon (Glucagon) 1 mg IM PRN PRN PRN Reason: HYPOGLYCEMIA PROTOCOL Dextrose/Water (D5w) 1,000 mls @ 0 mls/hr IV INF PRN PRN Reason: HYPOGLYCEMIA PROTOCOL Insulin Human Lispro (Humalog) 0 units SC .MILD SLIDING SCALE PRN; Protocol PRN Reason: MILD SLIDING SCALE Last Admin: 05/03/19 12:46 Dose: 4 unit Ipratropium [place] (Atrovent) 2.5 ml NEB [id number] [facility] Last Admin: 05/03/19 06:55 Dose: 2.5 ml Loratadine (Claritin) 10 mg PO DAILY PRN PRN Reason: ALLERGIES Metoprolol Tartrate (Lopressor) 12.5 mg PO BID [facility] Last Admin: 05/03/19 09:29 Dose: 12.5 mg Polyethylene Glycol (Miralax) 17 gm PO DAILY [facility] Last Admin: 05/03/19 09:43 Dose: Not Given Prednisone (Prednisone) 10 mg PO QAM-WM [facility] Last Admin: 05/03/19 09:29 Dose: 10 mg Primidone (Mysoline) 25 mg PO HS [facility] Last Admin: 05/02/19 20:42 Dose: 25 mg Senna/Docusate Sodium (Senokot S) 2 tab PO BID [facility] Last Admin: 05/03/19 09:28 Dose: 2 tab Simvastatin (Zocor) 5 mg PO QPM [facility] Last Admin: 05/02/19 20:39 Dose: 5 mg Sodium Chloride (Flush - Normal Saline) 10 ml IVF Q12HR PRN PRN Reason: Saline Flush Last Admin: 05/03/19 09:35 Dose: 10 ml Sodium Chloride (Flush - Normal Saline) 10 ml IVF PRN PRN PRN Reason: Saline Flush Last Admin: 05/03/19 04:00 Dose: 10 ml Tramadol HCl (Ultram) 50 mg PO Q6HR PRN PRN Reason: Moderate Pain (4-6) Last Admin: 05/02/19 20:46 Dose: 50 mg
[2019-05-03] MEDS: Furosemide 20 MG/2 ML VIAL SLOW IVP SCH (14:47)
--- NOTE | 2019-05-03 16:21 | PQF ---
CLINICAL DOCUMENTATION IMPROVEMENT CLARIFICATION FORM: ICD-10 Updated PLEASE DO AN ADDENDUM TO THE PROGRESS NOTE WITH ANY DOCUMENTATION UPDATES OR ADDITIONS AND CARRY THROUGH TO DC SUMMARY. THANK YOU. DATE: 05/03/19 ATTN: DR. REGAN Please exercise your independent, professional judgment in responding to the clarification form. Clinical indicators are provided on the bottom of this form for your review Please check appropriate box(s) to clarify if the following diagnosis has been ruled in or ruled out: "SEPSIS" [x ] Ruled in diagnosis [ ] Continue to treat [ x ] Resolved [ ] Ruled out diagnosis [ ] Cannot rule out diagnosis [ ] Other diagnosis [ ] Unable to determine In addition, please specify: Present on Admission (POA): [x ] Yes [ ] No [ ] Unable to determine For continuity of documentation, please document condition throughout progress notes and discharge summary. Thank You. CLINICAL INDICATORS - SIGNS / SYMPTOMS / LABS ER NOTE: "SEPSIS" TEMP IN ER 101.2 RR 22 WBC 4.0 RISKS: UTI URINE CULTURE + ECOLI ADVANCED AGE MULTIPLE COMORBIDITIES TREATMENT: IV VANCOMYCIN (ER) IV ROCEPHIN (ER) IV ZOSYN (ER-05/01) CIPRO (STARTED 05/03) BLOOD AND URINE CULTURES (This form is maintained as a part of the permanent medical record) [employer] Win[employer]er 2015 [employer]. All Rights Reserved DANIEL [email or web address] Office: [phone] [facility]
[2019-05-03] MEDS ORDERED: Insulin Glargine 20 UNITS in Pre-Filled Syringe SC SCH (16:45)
[2019-05-03] MEDS: Mometasone Furoate 120 PUFF 220 MCG INH SCH (18:23)
[2019-05-03] MEDS: Mometasone/Formoterol 120 PUFF INHALER INH SCH (18:23)
[2019-05-03] MEDS: Ciprofloxacin 500 MG TAB PO SCH (19:40)
[2019-05-03] MEDS: Famotidine/PF 20 mg/2ml Vial SLOW IVP SCH (19:41)
[2019-05-03] MEDS: Citalopram 20 MG TAB PO SCH (19:41)
[2019-05-03] MEDS: Pregabalin 50 MG CAP PO SCH (19:43)
[2019-05-03] MEDS: Primidone 50 MG TAB PO SCH (19:44)
[2019-05-03] MEDS: Simvastatin 5 MG TAB PO SCH (19:44)
[2019-05-03] MEDS: Senokot 8.6 MG TAB PO SCH (19:50)
[2019-05-04] MEDS: Furosemide 20 MG/2 ML VIAL SLOW IVP SCH (06:34)
[2019-05-04] MEDS: Ciprofloxacin 500 MG TAB PO SCH ×2 (06:34→21:20)
[2019-05-04] MEDS: Ipratropium Bromide 2.5 ml Neb NEB SCH ×3 (07:47→18:48)
[2019-05-04] MEDS: Mometasone/Formoterol 120 PUFF INHALER INH SCH ×2 (07:49→18:47)
[2019-05-04] MEDS ORDERED: metFORMIN 500 MG TAB PO SCH (08:00)
[2019-05-04 08:51] LABS: #Eosinphils 0.2 thou/uL (0.0-0.7); #Monocytes 0.4 thou/uL (0.11-0.59); #Neutrophils 2.6 thou/uL (1.40-6.50); %Eosinophils 3.7 % (0.0-10.0); %Lymphocytes 24.1 % (21.0-51.0); %Monocytes 8.8 % (0.0-10.0); %Neutrophils 62.4 % (42.0-75.0); Hemoglobin 7.7 g/dL (12.0-16.0); Mean Corpuscular Volume 99.9 fL (78.0-98.0); Mean Platelet Volume 6.7 fL (7.4-10.4); Platelet Count 102 thou/uL (130-400); Red Blood Cell (RBC) Count 2.33 mill/uL (4.20-5.40); White Blood Cell (WBC) Count 4.1 thou/uL (4.8-10.8)
[2019-05-04 09:00] LABS: Anion Gap 12 mmol/L (10-20); BUN (Urea Nitrogen) 23 mg/dL (9.8-20.1); Calc. Creatinine Clearance 50 mL/min (70-130); Calcium 8.5 mg/dL (7.8-10.44); Carbon Dioxide 33 mmol/L (23-31); Chloride 98 mmol/L (98-107); Estimated GFR-MDRD 36; Glucose 142 mg/dL (83-110); Potassium 3.6 mmol/L (3.5-5.1); Sodium 139 mmol/L (136-145)
[2019-05-04] MEDS ORDERED: Non-Formulary Item 1 EACH (Insulin Detemir [Levemir] 20 UNIT) SQ SCH (09:00)
[2019-05-04] MEDS: Ferrous Sulfate 325 MG TAB PO SCH (09:55)
[2019-05-04] MEDS: Cyanocobalamin (Vitamin B-12) 1,000 MCG TAB PO SCH (09:55)
[2019-05-04] MEDS: predniSONE 5 MG TAB PO SCH (09:55)
[2019-05-04] MEDS: Metoprolol Tartrate 25 MG TAB PO SCH ×2 (09:55→21:22)
[2019-05-04] MEDS: Dronedarone HCl 400 MG TAB PO SCH ×2 (09:56→16:44)
[2019-05-04] MEDS: Magnesium Oxide 400 MG TAB PO SCH (09:56)
[2019-05-04] MEDS: metFORMIN 500 MG TAB PO SCH ×3 (09:56→21:23)
[2019-05-04] MEDS: Folic Acid 1 MG TAB PO SCH (09:56)
[2019-05-04] MEDS: Pregabalin 50 MG CAP PO SCH ×2 (09:56→21:25)
[2019-05-04] MEDS: Artificial Tear Sol 15 ML BOT EA EYE SCH ×2 (09:57→21:20)
[2019-05-04] MEDS: Polyethylene Glycol 3350 17 GM Packet PO SCH (09:59)
[2019-05-04] MEDS: Senokot S 8.6-50 MG TAB PO SCH ×2 (10:00→21:21)
[2019-05-04] MEDS: Senokot 8.6 MG TAB PO SCH ×2 (10:00→21:21)
[2019-05-04] MEDS: Insulin Glargine 20 UNITS in Pre-Filled Syringe SC SCH (10:01)
[2019-05-04] MEDS: traMADol HCl 50 MG TAB PO PRN ×2 (10:13→16:45)
[2019-05-04] MEDS: Gabapentin 100 MG CAP PO SCH ×3 (12:06→21:23)
--- NOTE | 2019-05-04 13:47 | PDOC.PN ---
- Subjective Encounter Start Date: 05/04/19 Encounter Start Time: 12:00 Subjective: had total of 4 episodes of dark watery stools, 3 yest and 1 this am -: no abd pain or nausea - Objective Resuscitation Status - Order Detail: 05/01/19 20:09 Resuscitation Status Routine Co-Sign Provider: Resuscitation Status: FULL: Full Resuscitation MAR Reviewed: Yes Vital Signs & Weight: Vital Signs (12 hours) Temp Pulse Resp BP Pulse Ox 05/04/19 13:39 61 18 97 05/04/19 11:00 97.6 F 56 L 18 118/63 95 05/04/19 08:00 97 05/04/19 07:47 64 18 98 05/04/19 07:00 98.0 F 55 L 20 121/65 97 05/04/19 04:15 97.6 F 55 L 15 113/66 100 Weight Admit Weight 231 lb 0.711 oz Weight 231 lb 0.711 oz I&O: 05/03/19 05/04/19 05/05/19 06:59 06:59 06:59 Intake Total 2636 1500 Output Total 2125 3 Balance 511 1497 Result Diagrams: 05/04/19 08:29 05/04/19 08:29 Additional Labs: Accuchecks 05/04/19 05/04/19 05/04/19 11:24 10:03 04:13 POC Glucose 138 H 154 H 120 H 05/03/19 05/03/19 05/03/19 21:59 19:34 18:18 POC Glucose 304 H 394 H 424 H 05/03/19 16:29 POC Glucose 434 H Phys Exam - Physical Examination HEENT: PERRLA, moist MMs Neck: no JVD, supple Respiratory: no wheezing, no rales Cardiovascular: RRR, no significant murmur Gastrointestinal: soft, non-tender, no distention, positive bowel sounds Musculoskeletal: pulses present, edema present Neurological: non-focal, moves all 4 limbs Psychiatric: normal affect, A&O x 3 Dx/Plan (1) UTI (urinary tract infection) Status: Acute Qualifiers: Urinary tract infection type: acute cystitis Hematuria presence: without hematuria Qualified Code(s): N30.00 - Acute cystitis without hematuria (2) Anemia Code(s): D64.9 - ANEMIA, UNSPECIFIED Status: Chronic Qualifiers: Anemia type: unspecified type Qualified Code(s): D64.9 - Anemia, unspecified (3) Anxiety and depression Code(s): F41.9 - ANXIETY DISORDER, UNSPECIFIED; F32.9 - MAJOR DEPRESSIVE DISORDER, SINGLE EPISODE, UNSPECIFIED Status: Chronic (4) CAD (coronary artery disease) Code(s): I25.10 - ATHSCL HEART DISEASE OF [place] CORONARY ARTERY W/O ANG PCTRS Status: Chronic Qualifiers: Coronary Disease-Associated Artery/Lesion type: [place] artery [place] vs. transplanted heart: [place] heart Associated angina: without angina Qualified Code(s): I25.10 - Atherosclerotic heart disease of [place] coronary artery without angina pectoris Comment: (5) CKD (chronic kidney disease) stage 3, GFR 30-59 ml/min Status: Chronic (6) COPD (chronic obstructive pulmonary disease) Status: Chronic Qualifiers: COPD type: chronic bronchitis Comment: (7) Chronic respiratory failure with hypoxia Code(s): J96.11 - CHRONIC RESPIRATORY FAILURE WITH HYPOXIA Status: Chronic Comment: baseline 2-3 liter by nasal canula (8) DM2 (diabetes mellitus, type 2) Status: Chronic Qualifiers: Diabetes mellitus retirement insulin use: with terminal clerk use Diabetes mellitus complication status: with kidney complications Diabetes mellitus complication detail: with chronic kidney disease Chronic kidney disease stage : stage 2 (mild) Qualified Code(s): E11.22 - Type 2 diabetes mellitus with diabetic chronic kidney disease; N18.2 - Chronic kidney disease, stage 2 (mild) ; Z79.4 - [facility] (current) use of insulin (9) Dyslipidemia Code(s): E78.5 - HYPERLIPIDEMIA, UNSPECIFIED Status: Chronic (10) Hypertension Code(s): I10 - ESSENTIAL (PRIMARY) HYPERTENSION Status: Chronic Qualifiers: Hypertension type: essential hypertension Qualified Code(s): I10 - Essential (primary) hypertension (11) Paroxysmal atrial fibrillation Code(s): I48.0 - PAROXYSMAL ATRIAL FIBRILLATION Status: Chronic (12) Thrombocytopenia Code(s): D69.6 - THROMBOCYTOPENIA, UNSPECIFIED Status: Chronic (13) GI bleed Code(s): K92.2 - GASTROINTESTINAL HEMORRHAGE, UNSPECIFIED Status: Suspected (14) Acute blood loss anemia Code(s): D62 - ACUTE POSTHEMORRHAGIC ANEMIA Status: Suspected - Plan keep her on liq diet, GI consult, protonix -: reduce prednisone to 5mg (chronic use ?copd) -: cipro for uti, is at baseline nasal canula oxygen -: continue lopressor, primidone, multaq, oral lasix, zocor, celexa -: dc plan to snf once GI clears her * . Review of Systems - Medications/Allergies Allergies/Adverse Reactions: Allergies Allergy/AdvReac Type Severity Reaction Status Date / Time codeine Allergy Severe throat Verified 04/28/19 02:01 swelling aspirin Allergy Intermediate Verified 04/28/19 02:01 Medications: Current Medications Acetaminophen (Tylenol) 650 mg PO Q4H PRN PRN Reason: Headache/Fever/Mild Pain (1-3) Last Admin: 05/02/19 04:28 Dose: 650 mg Acetaminophen (Tylenol) 650 mg [place] Q4H PRN PRN Reason: Headache/Fever/Mild Pain (1-3) Artificial Tears (Liquitears 15ml Bottle) 1 drop EA EYE BID [facility] Last Admin: 05/04/19 09:57 Dose: 1 drp Artificial Tears (Liquitears 15ml Bottle) 2 drop EA EYE QID PRN PRN Reason: Dry Eyes Last Admin: 05/03/19 00:13 Dose: 2 drop Ciprofloxacin (Cipro) 500 mg PO 0600,2000 [facility] Last Admin: 05/04/19 06:34 Dose: 500 mg Citalopram Hydrobromide (Celexa) 30 mg PO HS [facility] Last Admin: 05/03/19 19:41 Dose: 30 mg Cyanocobalamin (Vitamin B-12) 1,000 mcg PO DAILY [facility] Last Admin: 05/04/19 09:55 Dose: 1,000 mcg Dextrose/Water (Dextrose 50%) 25 gm IVP PRN PRN PRN Reason: HYPOGLYCEMIA PROTOCOL Dronedarone (Multaq) 400 mg PO BID-WM [facility] Last Admin: 05/04/19 09:56 Dose: 400 mg Ferrous Sulfate (Feosol) 325 mg PO QAM [facility] Last Admin: 05/04/19 09:55 Dose: 325 mg Folic Acid (Folvite) 1 mg PO QAM [facility] Last Admin: 05/04/19 09:56 Dose: 1 mg Furosemide (Lasix) 20 mg SLOW IVP 0600,1400 [facility] Last Admin: 05/04/19 06:34 Dose: 20 mg Gabapentin (Neurontin) 300 mg PO TID [facility] Last Admin: 05/04/19 12:06 Dose: Not Given Glucagon (Glucagon) 1 mg IM PRN PRN PRN Reason: HYPOGLYCEMIA PROTOCOL Dextrose/Water (D5w) 1,000 mls @ 0 mls/hr IV INF PRN PRN Reason: HYPOGLYCEMIA PROTOCOL Insulin Glargine 20 units/ (Miscellaneous Medication) 0.2 mls @ 0 mls/hr SC QAM [facility] Last Admin: 05/04/19 10:01 Dose: 0.2 mls Insulin Human Lispro (Humalog) 0 units SC .MILD SLIDING SCALE PRN; Protocol PRN Reason: MILD SLIDING SCALE Last Admin: 05/03/19 22:00 Dose: 5 unit Ipratropium [place] (Atrovent) 2.5 ml NEB [id number] [facility] Last Admin: 05/04/19 13:39 Dose: 2.5 ml Loratadine (Claritin) 10 mg PO DAILY PRN PRN Reason: ALLERGIES Magnesium Oxide (Magnesium Oxide) 200 mg PO DAILY [facility] Last Admin: 05/04/19 09:56 Dose: 200 mg Metformin HCl (Glucophage) 500 mg PO TID [facility] Last Admin: 05/04/19 09:56 Dose: 500 mg Metoprolol Tartrate (Lopressor) 12.5 mg PO BID [facility] Last Admin: 05/04/19 09:55 Dose: 12.5 mg Mometasone Furoate (Asmanex Twisthaler) 1 puff INH 1830 [facility] Last Admin: 05/03/19 18:23 Dose: 1 puff Mometasone Furoate/Formoterol Fumar (Dulera 100 Mcg/5 Mcg Inhaler) 2 puff INH BID-RT [facility] Last Admin: 05/04/19 07:49 Dose: 2 puff Pantoprazole Sodium (Protonix) 40 mg IVP Q12HR [facility] Polyethylene Glycol (Miralax) 17 gm PO DAILY [facility] Last Admin: 05/04/19 09:59 Dose: Not Given Potassium Chloride (Klor-Con) 20 meq PO BID [facility] Last Admin: 05/04/19 09:59 Dose: Not Given Prednisone (Prednisone) 5 mg PO QAM [facility] Last Admin: 05/04/19 09:55 Dose: 5 mg Pregabalin (Lyrica) 50 mg PO BID [facility] Last Admin: 05/04/19 09:56 Dose: 50 mg Primidone (Mysoline) 25 mg PO HS [facility] Last Admin: 05/03/19 19:44 Dose: 25 mg Senna (Senokot) 1 tab PO BID [facility] Last Admin: 05/04/19 10:00 Dose: Not Given Senna/Docusate Sodium (Senokot S) 2 tab PO BID [facility] Last Admin: 05/04/19 10:00 Dose: Not Given Simvastatin (Zocor) 5 mg PO QPM [facility] Last Admin: 05/03/19 19:44 Dose: 5 mg Sodium Chloride (Flush - Normal Saline) 10 ml IVF Q12HR PRN PRN Reason: Saline Flush Last Admin: 05/03/19 09:35 Dose: 10 ml Sodium Chloride (Flush - Normal Saline) 10 ml IVF PRN PRN PRN Reason: Saline Flush Last Admin: 05/03/19 04:00 Dose: 10 ml Tramadol HCl (Ultram) 50 mg PO Q6HR PRN PRN Reason: Moderate Pain (4-6) Last Admin: 05/04/19 10:13 Dose: 50 mg
[2019-05-04 14:18] LABS: Hemoglobin 8.2 g/dL (12.0-16.0)
[2019-05-04] MEDS: HumaLOG 300 UNITS/3 ML VIAL SC PRN ×2 (17:26→21:33)
[2019-05-04] MEDS: Mometasone Furoate 120 PUFF 220 MCG INH SCH (18:48)
[2019-05-04 20:04] LABS: Hemoglobin 8.1 g/dL (12.0-16.0)
[2019-05-04] MEDS: Primidone 50 MG TAB PO SCH (21:20)
[2019-05-04] MEDS: Citalopram 20 MG TAB PO SCH (21:21)
[2019-05-04] MEDS: Simvastatin 5 MG TAB PO SCH (21:21)
[2019-05-04] MEDS: Acetaminophen 325 MG TAB PO PRN (21:23)
[2019-05-04] MEDS: Pantoprazole 40 MG VIAL IVP SCH (21:33)
[2019-05-05] MEDS: Ipratropium Bromide 2.5 ml Neb NEB SCH ×4 (01:04→18:42)
[2019-05-05 02:27] LABS: Hemoglobin 7.2 g/dL (12.0-16.0)
[2019-05-05 02:52] LABS: Iron 27 ug/dL (50-170); Iron Binding Capacity, Total 230 mcg/dL (265-497)
[2019-05-05 02:53] LABS: Anion Gap 13 mmol/L (10-20); BUN (Urea Nitrogen) 22 mg/dL (9.8-20.1); Calc. Creatinine Clearance 49 mL/min (70-130); Calcium 8.5 mg/dL (7.8-10.44); Carbon Dioxide 31 mmol/L (23-31); Chloride 98 mmol/L (98-107); Estimated GFR-MDRD 36; Glucose 131 mg/dL (83-110); Iron 27 ug/dL (50-170); Iron Binding Capacity, Total 228 mcg/dL (265-497); Sodium 138 mmol/L (136-145)
--- NOTE | 2019-05-05 03:18 | CON ---
DATE OF CONSULTATION: 05/04/2019 REASON FOR CONSULTATION: Anemia. CONSULTING PROVIDER: Rosita Nassar MD HISTORY OF PRESENT ILLNESS: The patient is an 83-year-old female with past medical history of diabetes, hypertension, chronic kidney disease stage 3, congestive heart failure, COPD, coronary artery disease and atrial fibrillation, who initially presented to the hospital with complaints of fevers, chills, and dysuria. She states that she was in her usual state of health until approximately 3 to 4 days ago when she experienced increasing dysuria in addition to subjective fevers and chills with temperature noted by EMS at the time that she was evaluated at 103 degrees Fahrenheit. With this increasing fever, she was ultimately brought by the EMS to the [facility] ER and while in the ER, she was noted to have urinary tract infection and was ultimately admitted to the hospital for IV antibiotic administration given signs of sepsis on other labs. During the course of this hospitalization, she has been noted to have pancytopenia with a low white blood cell count, H and H, and thrombocytopenia. On chart review, this pancytopenia has been present for many years and went away, performed with the leukopenia present since at least 2015, the low H and H present since at least 2015, and the thrombocytopenia present since at least 2013. During the course of this hospitalization, she denies any overt bleeding including hematemesis, melena, or hematochezia. Currently, she denies any nausea, vomiting, fevers, chills, dysphagia, odynophagia, or weight loss. Of note, the patient underwent both EGD and colonoscopy on October 29, 2016. During the upper endoscopy, there was no abnormality seen. However, during the colonoscopy, there were 4 small polyps in the ascending and proximal transverse, as well as a 2 cm flat polyp in the transverse colon that were seen but not removed at the time of colonoscopy given the fact that the patient was on anticoagulation at that time. REVIEW OF SYSTEMS: A 10-category review of systems was obtained with all responses negative except for the pertinent positives as listed in the HPI. PAST MEDICAL HISTORY: As per HPI. PAST SURGICAL HISTORY: Appendectomy, carpal tunnel surgery, cholecystectomy, hysterectomy, left knee replacement, and back surgery. FAMILY HISTORY: Denies any GI malignancies. SOCIAL HISTORY: Denies any tobacco, alcohol, or illicit drug use. OUTPATIENT MEDICATIONS: Reviewed (although it is an extensive list). ALLERGIES: ASPIRIN AND CODEINE. PHYSICAL EXAMINATION: VITAL SIGNS: Temperature 98.1, pulse 53, blood pressure 114/66, respiratory rate 18, saturating 97% on 3 L nasal cannula. GENERAL: The patient was lying in bed, in no acute distress. Alert and oriented x4. HEENT: Normocephalic and atraumatic. NECK: Supple. No JVD or scleral icterus noted. CARDIOVASCULAR: Regular rate and rhythm with no discernible murmurs, gallops, or rubs. RESPIRATORY: Clear to auscultation bilaterally with no discernible wheezes or rales. ABDOMEN: Normoactive bowel sounds. Soft, nontender, and nondistended. EXTREMITIES: 1+/2+ bilateral lower extremity edema was noted on both bilateral knees. Otherwise, no cyanosis or clubbing. LABORATORY DATA: CBC with a white blood cell count of 4.1, hemoglobin 7.7, hematocrit 23.3, and platelets 102. Chemistry with a sodium 139, potassium 3.6, chloride 98, CO2 of 33, BUN 23, creatinine 1.39, and glucose 142. IMAGING DATA: No current GI imaging is available for review. ASSESSMENT AND PLAN: The patient is an 83-year-old female with past medical history of diabetes, hypertension, chronic kidney disease stage 3, congestive heart failure, COPD, coronary artery disease and atrial fibrillation, presenting with pancytopenia and significant anemia, but relatively unchanged from baseline. Anemia. The patient is currently presenting with an anemia based on mild decrease in her baseline hemoglobin of around 8-9 at any given point in time. Her anemia is macrocytic with an MCV of 99.9 and normal RDW, which lean away from the diagnosis of iron deficiency anemia. Currently, she denies any evidence of overt GI bleeding including hematemesis, melena, or hematochezia. Although she has had some darker colored stools during this admission, the patient denies of being truly black in coloration rather than dark brown. Given that her H and H has been relatively unchanged with healthy infusion of PRBCs, the likelihood of an active GI bleeding ongoing is unlikely. However, I would like to further characterize her anemia by grabbing iron studies to do just that. RECOMMENDATIONS: 1. Would continue to trend H and H and transfuse as necessary to maintain an H and H of 7. 2. We will continue to monitor her clinically for signs of active GI bleeding. 3. Would continue to treat her urinary tract infection as it could generate a DIC/sepsis type picture, which could result in pancytopenia. 4. Would obtain iron indices including iron, ferritin, and total biodynamic complex to further characterize the anemia. 5. If an iron deficiency is indeed present, we then consider repeat upper and lower endoscopy. 6. We will avoid any anticoagulation in this patient at least for the time being if one can safely do so. We will continue to follow. Please call with any questions. Job ID: [id number]
[2019-05-05] MEDS: Ciprofloxacin 500 MG TAB PO SCH ×2 (06:07→20:49)
[2019-05-05] MEDS: Mometasone/Formoterol 120 PUFF INHALER INH SCH ×2 (06:42→18:50)
[2019-05-05] MEDS: Senokot S 8.6-50 MG TAB PO SCH ×2 (08:55→20:52)
[2019-05-05] MEDS: Polyethylene Glycol 3350 17 GM Packet PO SCH (08:55)
[2019-05-05] MEDS: Senokot 8.6 MG TAB PO SCH ×2 (08:55→20:52)
[2019-05-05] MEDS: Gabapentin 100 MG CAP PO SCH ×3 (09:01→20:49)
[2019-05-05] MEDS: Dronedarone HCl 400 MG TAB PO SCH ×2 (09:01→17:06)
[2019-05-05] MEDS: Ferrous Sulfate 325 MG TAB PO SCH (09:01)
[2019-05-05 09:06] LABS: Hemoglobin 8.4 g/dL (12.0-16.0)
[2019-05-05] MEDS: Metoprolol Tartrate 25 MG TAB PO SCH ×2 (09:09→20:50)
[2019-05-05] MEDS: predniSONE 5 MG TAB PO SCH (09:09)
[2019-05-05] MEDS: metFORMIN 500 MG TAB PO SCH ×3 (09:09→20:51)
[2019-05-05] MEDS: Folic Acid 1 MG TAB PO SCH (09:09)
[2019-05-05] MEDS: Furosemide 20 MG TAB PO SCH (09:09)
[2019-05-05] MEDS: Cyanocobalamin (Vitamin B-12) 1,000 MCG TAB PO SCH (09:10)
[2019-05-05] MEDS: Magnesium Oxide 400 MG TAB PO SCH (09:10)
[2019-05-05] MEDS: Insulin Glargine 20 UNITS in Pre-Filled Syringe SC SCH (09:11)
[2019-05-05] MEDS: Pregabalin 50 MG CAP PO SCH ×2 (09:12→20:52)
[2019-05-05] MEDS: traMADol HCl 50 MG TAB PO PRN (09:20)
[2019-05-05] MEDS: Pantoprazole 40 MG VIAL IVP SCH (09:21)
[2019-05-05] MEDS: Artificial Tear Sol 15 ML BOT EA EYE SCH ×2 (09:21→20:51)
--- NOTE | 2019-05-05 16:00 | PDOC.PN ---
- Subjective Encounter Start Date: 05/05/19 Encounter Start Time: 08:15 Subjective: still having dark stools, no nausea or abd pain -: no sob - Objective Resuscitation Status - Order Detail: 05/01/19 20:09 Resuscitation Status Routine Co-Sign Provider: Resuscitation Status: FULL: Full Resuscitation MAR Reviewed: Yes Vital Signs & Weight: Vital Signs (12 hours) Temp Pulse Resp BP Pulse Ox 05/05/19 12:23 65 14 100 05/05/19 11:35 98 F 58 L 19 117/69 96 05/05/19 06:53 98 F 54 L 17 130/76 100 05/05/19 06:40 74 12 100 Weight Admit Weight 231 lb 0.711 oz Weight 231 lb 0.711 oz I&O: 05/04/19 05/05/19 05/06/19 06:59 06:59 06:59 Intake Total 1500 980 Output Total 3 1 Balance 1497 979 Result Diagrams: 05/05/19 08:41 05/05/19 02:13 Additional Labs: Accuchecks 05/05/19 05/05/19 05/04/19 11:37 04:35 20:35 POC Glucose 173 H 115 H 212 H 05/04/19 16:24 POC Glucose 226 H Phys Exam - Physical Examination HEENT: PERRLA, sclera anicteric Neck: no JVD, supple Respiratory: no wheezing, no rales Cardiovascular: RRR, no significant murmur Gastrointestinal: soft, non-tender, no distention, positive bowel sounds Musculoskeletal: no edema, pulses present Neurological: non-focal, moves all 4 limbs Psychiatric: A&O x 3 Dx/Plan (1) UTI (urinary tract infection) Status: Acute Qualifiers: Urinary tract infection type: acute cystitis Hematuria presence: without hematuria Qualified Code(s): N30.00 - Acute cystitis without hematuria (2) Anemia Code(s): D64.9 - ANEMIA, UNSPECIFIED Status: Chronic Qualifiers: Anemia type: unspecified type Qualified Code(s): D64.9 - Anemia, unspecified (3) Anxiety and depression Code(s): F41.9 - ANXIETY DISORDER, UNSPECIFIED; F32.9 - MAJOR DEPRESSIVE DISORDER, SINGLE EPISODE, UNSPECIFIED Status: Chronic (4) CAD (coronary artery disease) Code(s): I25.10 - ATHSCL HEART DISEASE OF [place] CORONARY ARTERY W/O ANG PCTRS Status: Chronic Qualifiers: Coronary Disease-Associated Artery/Lesion type: [place] artery [place] vs. transplanted heart: [place] heart Associated angina: without angina Qualified Code(s): I25.10 - Atherosclerotic heart disease of [place] coronary artery without angina pectoris Comment: (5) CKD (chronic kidney disease) stage 3, GFR 30-59 ml/min Status: Chronic (6) COPD (chronic obstructive pulmonary disease) Status: Chronic Qualifiers: COPD type: chronic bronchitis Comment: (7) Chronic respiratory failure with hypoxia Code(s): J96.11 - CHRONIC RESPIRATORY FAILURE WITH HYPOXIA Status: Chronic Comment: baseline 2-3 liter by nasal canula (8) DM2 (diabetes mellitus, type 2) Status: Chronic Qualifiers: Diabetes mellitus alf insulin use: with alf use Diabetes mellitus complication status: with kidney complications Diabetes mellitus complication detail: with chronic kidney disease Chronic kidney disease stage : stage 2 (mild) Qualified Code(s): E11.22 - Type 2 diabetes mellitus with diabetic chronic kidney disease; N18.2 - Chronic kidney disease, stage 2 (mild) ; Z79.4 - penitentiary (current) use of insulin (9) Dyslipidemia Code(s): E78.5 - HYPERLIPIDEMIA, UNSPECIFIED Status: Chronic (10) Hypertension Code(s): I10 - ESSENTIAL (PRIMARY) HYPERTENSION Status: Chronic Qualifiers: Hypertension type: essential hypertension Qualified Code(s): I10 - Essential (primary) hypertension (11) Paroxysmal atrial fibrillation Code(s): I48.0 - PAROXYSMAL ATRIAL FIBRILLATION Status: Chronic (12) Thrombocytopenia Code(s): D69.6 - THROMBOCYTOPENIA, UNSPECIFIED Status: Chronic (13) GI bleed Code(s): K92.2 - GASTROINTESTINAL HEMORRHAGE, UNSPECIFIED Status: Suspected (14) Acute blood loss anemia Code(s): D62 - ACUTE POSTHEMORRHAGIC ANEMIA Status: Suspected - Plan h/h stable, will transfuse 1 u prbc in am if she still has dark stools -: dc magnesium oxide and kdur -: edema in LE has resolved -: on cipro bid for uti, will dc metformin if she continue to have diarrhea (n -: -ot a new med), continue multaq, prednisone 5mg, lopressor, nebs, zocor * . may switch to liq iron if she has diarrhea in am. Was ready for discharge but developed dark stools with h/h labile a bit, Hb has not gone less than 7g so far. Review of Systems - Medications/Allergies Allergies/Adverse Reactions: Allergies Allergy/AdvReac Type Severity Reaction Status Date / Time codeine Allergy Severe throat Verified 04/28/19 02:01 swelling aspirin Allergy Intermediate Verified 04/28/19 02:01 Medications: Current Medications Acetaminophen (Tylenol) 650 mg PO Q4H PRN PRN Reason: Headache/Fever/Mild Pain (1-3) Last Admin: 05/04/19 21:23 Dose: 650 mg Acetaminophen (Tylenol) 650 mg [place] Q4H PRN PRN Reason: Headache/Fever/Mild Pain (1-3) Artificial Tears (Liquitears 15ml Bottle) 1 drop EA EYE BID [facility] Last Admin: 05/05/19 09:21 Dose: 1 drp Artificial Tears (Liquitears 15ml Bottle) 2 drop EA EYE QID PRN PRN Reason: Dry Eyes Last Admin: 05/03/19 00:13 Dose: 2 drop Ciprofloxacin (Cipro) 500 mg PO 06,1999 [facility] Last Admin: 05/05/19 06:07 Dose: 500 mg Citalopram Hydrobromide (Celexa) 30 mg PO HS [facility] Last Admin: 05/04/19 21:21 Dose: 30 mg Cyanocobalamin (Vitamin B-12) 1,000 mcg PO DAILY [facility] Last Admin: 05/05/19 09:10 Dose: 1,000 mcg Dextrose/Water (Dextrose 50%) 25 gm IVP PRN PRN PRN Reason: HYPOGLYCEMIA PROTOCOL Dronedarone (Multaq) 400 mg PO BID-WM [facility] Last Admin: 05/05/19 09:01 Dose: 400 mg Ferrous Sulfate (Feosol) 325 mg PO QAM [facility] Last Admin: 05/05/19 09:01 Dose: 325 mg Folic Acid (Folvite) 1 mg PO QAM [facility] Last Admin: 05/05/19 09:09 Dose: 1 mg Furosemide (Lasix) 20 mg PO DAILY [facility] Last Admin: 05/05/19 09:09 Dose: 20 mg Gabapentin (Neurontin) 300 mg PO TID [facility] Last Admin: 05/05/19 09:01 Dose: 300 mg Glucagon (Glucagon) 1 mg IM PRN PRN PRN Reason: HYPOGLYCEMIA PROTOCOL Dextrose/Water (D5w) 1,000 mls @ 0 mls/hr IV INF PRN PRN Reason: HYPOGLYCEMIA PROTOCOL Insulin Glargine 20 units/ (Miscellaneous Medication) 0.2 mls @ 0 mls/hr SC QAM [facility] Last Admin: 05/05/19 09:11 Dose: 0.2 mls Insulin Human Lispro (Humalog) 0 units SC .MILD SLIDING SCALE PRN; Protocol PRN Reason: MILD SLIDING SCALE Last Admin: 05/04/19 21:33 Dose: 3 unit Ipratropium [place] (Atrovent) 2.5 ml [id number] [id number] [facility] Last Admin: 05/05/19 12:23 Dose: 2.5 ml Loratadine (Claritin) 10 mg PO DAILY PRN PRN Reason: ALLERGIES Metformin HCl (Glucophage) 500 mg PO TID [facility] Last Admin: 05/05/19 09:09 Dose: 500 mg Metoprolol Tartrate (Lopressor) 12.5 mg PO BID [facility] Last Admin: 05/05/19 09:09 Dose: 12.5 mg Mometasone Furoate (Asmanex Twisthaler) 1 puff INH 1830 [facility] Last Admin: 05/04/19 18:48 Dose: 1 puff Mometasone Furoate/Formoterol Fumar (Dulera 100 Mcg/5 Mcg Inhaler) 2 puff INH BID-RT [facility] Last Admin: 05/05/19 06:42 Dose: 2 puff Pantoprazole Sodium (Protonix) 40 mg PO DAILY [facility] Polyethylene Glycol (Miralax) 17 gm PO DAILY [facility] Last Admin: 05/05/19 08:55 Dose: Not Given Prednisone (Prednisone) [facility] [place] Last Admin: 05/05/19 09:09 Dose: 5 mg Pregabalin (Lyrica) 50 mg PO BID [facility] Last Admin: 05/05/19 09:12 Dose: 50 mg Primidone (Mysoline) 25 mg PO HS [facility] Last Admin: 05/04/19 21:20 Dose: 25 mg Senna (Senokot) 1 tab PO BID [facility] Last Admin: 05/05/19 08:55 Dose: Not Given Senna/Docusate Sodium (Senokot S) 2 tab PO BID [facility] Last Admin: 05/05/19 08:55 Dose: Not Given Simvastatin (Zocor) 5 mg PO QPM [facility] Last Admin: 05/04/19 21:21 Dose: 5 mg Sodium Chloride (Flush - Normal Saline) 10 ml IVF Q12HR PRN PRN Reason: Saline Flush Last Admin: 05/03/19 09:35 Dose: 10 ml Sodium Chloride (Flush - Normal Saline) 10 ml IVF PRN PRN PRN Reason: Saline Flush Last Admin: 05/03/19 04:00 Dose: 10 ml Tramadol HCl (Ultram) 50 mg PO Q6HR PRN PRN Reason: Moderate Pain (4-6) Last Admin: 05/05/19 09:20 Dose: 50 mg
[2019-05-05] MEDS: Mometasone Furoate 120 PUFF 220 MCG INH SCH (18:52)
[2019-05-05] MEDS: Simvastatin 5 MG TAB PO SCH (20:49)
[2019-05-05] MEDS: Citalopram 20 MG TAB PO SCH (20:50)
[2019-05-05] MEDS: Acetaminophen 325 MG TAB PO PRN (20:51)
[2019-05-05] MEDS: Primidone 50 MG TAB PO SCH (20:52)
[2019-05-06] MEDS: Ipratropium Bromide 2.5 ml Neb NEB SCH ×3 (00:22→13:13)
[2019-05-06] MEDS: Ciprofloxacin 500 MG TAB PO SCH (06:09)
[2019-05-06] MEDS: Mometasone/Formoterol 120 PUFF INHALER INH SCH (06:57)
[2019-05-06] MEDS: Senokot S 8.6-50 MG TAB PO SCH (07:42)
[2019-05-06] MEDS: Senokot 8.6 MG TAB PO SCH (07:42)
[2019-05-06] MEDS: Polyethylene Glycol 3350 17 GM Packet PO SCH (07:42)
[2019-05-06] MEDS: Gabapentin 100 MG CAP PO SCH (10:00)
[2019-05-06] MEDS: predniSONE 5 MG TAB PO SCH (10:01)
[2019-05-06] MEDS: Cyanocobalamin (Vitamin B-12) 1,000 MCG TAB PO SCH (10:01)
[2019-05-06] MEDS: Pregabalin 50 MG CAP PO SCH (10:01)
[2019-05-06] MEDS: Ferrous Sulfate 325 MG TAB PO SCH (10:01)
[2019-05-06] MEDS: Dronedarone HCl 400 MG TAB PO SCH (10:01)
[2019-05-06] MEDS: Folic Acid 1 MG TAB PO SCH (10:02)
[2019-05-06] MEDS: Furosemide 20 MG TAB PO SCH (10:02)
[2019-05-06] MEDS: Insulin Glargine 20 UNITS in Pre-Filled Syringe SC SCH (10:02)
[2019-05-06] MEDS: metFORMIN 500 MG TAB PO SCH (10:02)
[2019-05-06] MEDS: Metoprolol Tartrate 25 MG TAB PO SCH (10:02)
[2019-05-06] MEDS: Artificial Tear Sol 15 ML BOT EA EYE SCH (10:03)
[2019-05-06 11:15] VITALS: BP 110/64; TEMP 97.7
[2019-05-06] MEDS: traMADol HCl 50 MG TAB PO PRN (12:32)
--- NOTE | 2019-05-06 13:07 | PDOC.PN ---
- Subjective Encounter Start Date: 05/06/19 Encounter Start Time: 10:00 Subjective: feels better, wants to go back to snf -: had 1 bm last 24hrs per patient -: no abd pain or nausea, is eating fairly well - Objective Resuscitation Status - Order Detail: 05/01/19 20:09 Resuscitation Status Routine Co-Sign Provider: Resuscitation Status: FULL: Full Resuscitation MAR Reviewed: Yes Vital Signs & Weight: Vital Signs (12 hours) Temp Pulse Resp BP Pulse Ox 05/06/19 11:14 97.7 F 59 L 17 110/64 94 L 05/06/19 07:00 98 F 88 18 120/68 96 05/06/19 06:59 64 16 100 05/06/19 06:57 64 16 100 05/06/19 02:02 92 L Weight Admit Weight 231 lb 0.711 oz Weight 231 lb 0.711 oz I&O: 05/05/19 05/06/19 05/07/19 06:59 06:59 06:59 Intake Total 980 185 Output Total 1 Balance 979 185 Result Diagrams: 05/05/19 08:41 05/05/19 02:13 Additional Labs: Accuchecks 05/06/19 05/06/19 05/05/19 11:15 05:13 19:50 POC Glucose 170 H 81 177 H 05/05/19 17:33 POC Glucose 161 H Phys Exam - Physical Examination HEENT: PERRLA, moist MMs Neck: no JVD, supple Respiratory: no wheezing, no rales Cardiovascular: RRR, no significant murmur Gastrointestinal: soft, non-tender, positive bowel sounds Musculoskeletal: no edema, pulses present Neurological: non-focal, moves all 4 limbs Psychiatric: normal affect, A&O x 3 Dx/Plan (1) UTI (urinary tract infection) Status: Acute Qualifiers: Urinary tract infection type: acute cystitis Hematuria presence: without hematuria Qualified Code(s): N30.00 - Acute cystitis without hematuria (2) Anemia Code(s): D64.9 - ANEMIA, UNSPECIFIED Status: Chronic Qualifiers: Anemia type: unspecified type Qualified Code(s): D64.9 - Anemia, unspecified (3) Anxiety and depression Code(s): F41.9 - ANXIETY DISORDER, UNSPECIFIED; F32.9 - MAJOR DEPRESSIVE DISORDER, SINGLE EPISODE, UNSPECIFIED Status: Chronic (4) CAD (coronary artery disease) Code(s): I25.10 - ATHSCL HEART DISEASE OF [place] CORONARY ARTERY W/O ANG PCTRS Status: Chronic Qualifiers: Coronary Disease-Associated Artery/Lesion type: [place] artery [place] vs. transplanted heart: [place] heart Associated angina: without angina Qualified Code(s): I25.10 - Atherosclerotic heart disease of [place] coronary artery without angina pectoris Comment: (5) CKD (chronic kidney disease) stage 3, GFR 30-59 ml/min Status: Chronic (6) COPD (chronic obstructive pulmonary disease) Status: Chronic Qualifiers: COPD type: chronic bronchitis Comment: (7) Chronic respiratory failure with hypoxia Code(s): J96.11 - CHRONIC RESPIRATORY FAILURE WITH HYPOXIA Status: Chronic Comment: baseline 2-3 liter by nasal canula (8) DM2 (diabetes mellitus, type 2) Status: Chronic Qualifiers: Diabetes mellitus detention insulin use: with detention use Diabetes mellitus complication status: with kidney complications Diabetes mellitus complication detail: with chronic kidney disease Chronic kidney disease stage : stage 2 (mild) Qualified Code(s): E11.22 - Type 2 diabetes mellitus with diabetic chronic kidney disease; N18.2 - Chronic kidney disease, stage 2 (mild) ; Z79.4 - halfway (current) use of insulin (9) Dyslipidemia Code(s): E78.5 - HYPERLIPIDEMIA, UNSPECIFIED Status: Chronic (10) Hypertension Code(s): I10 - ESSENTIAL (PRIMARY) HYPERTENSION Status: Chronic Qualifiers: Hypertension type: essential hypertension Qualified Code(s): I10 - Essential (primary) hypertension (11) Paroxysmal atrial fibrillation Code(s): I48.0 - PAROXYSMAL ATRIAL FIBRILLATION Status: Chronic (12) Thrombocytopenia Code(s): D69.6 - THROMBOCYTOPENIA, UNSPECIFIED Status: Chronic (13) GI bleed Code(s): K92.2 - GASTROINTESTINAL HEMORRHAGE, UNSPECIFIED Status: Suspected (14) Acute blood loss anemia Code(s): D62 - ACUTE POSTHEMORRHAGIC ANEMIA Status: Suspected - Plan hemostable, serial h/h stable -: dc pt to snf -: continue prednisone at 5mg daily, oral iron, cipro x 3 days * .
--- NOTE | 2019-05-06 17:42 | DIS ---
DATE OF ADMISSION: 05/01/2019 DATE OF DISCHARGE: 05/06/2019 DISCHARGE DISPOSITION: [facility]. PRIMARY DISCHARGE DIAGNOSES: Urinary tract infection; suspicion for GI bleed with acute blood loss anemia, stable. SECONDARY DISCHARGE DIAGNOSES: Coronary artery disease; chronic kidney disease stage 3; anxiety; depression; chronic obstructive pulmonary disease; chronic respiratory failure, on 2 L nasal cannula; diabetes mellitus type 2; dyslipidemia; paroxysmal atrial fibrillation; hypertension; chronic thrombocytopenia. PROCEDURES DONE DURING HOSPITALIZATION: Chest x-ray done on the day of admission showed cardiomegaly and chronic lung changes, stable when compared to prior x- ray. Urine culture grew E coli sensitive to cephalosporins except cefoxitin and quinolones. Blood cultures x2, no growth. Stool for C diff was negative. Influenza A and B antigens were negative. Serial H and hematocrit remained stable around 8.4 and 25, MCV is 99, platelet count 102, white count of 4, BUN and creatinine of 22 and 1.4 on the 4th. Serum iron 27, TIBC 230, percent saturation 12, ferritin is 38, B12 193, folic acid 17.20. Troponin x2 negative. BNP 203. INPATIENT CONSULT: Dr. Leonardo Winkler for Gastroenterology. DISCHARGE MEDICATION: 1. Albuterol inhaler q.6 hourly p.r.n. 2. Fosamax 70 mg p.o. once weekly. 3. Pulmicort inhaler 2 puffs twice daily. 4. Celexa 30 mg p.o. nightly. 5. Vitamin B12 of 1000 mcg p.o. daily. 6. Ferrous sulfate 325 mg p.o. daily. 7. Breo Ellipta inhaler daily. 8. Folic acid 1 mg p.o. every morning. 9. Lasix 20 mg twice daily. 10. Gabapentin 300 mg p.o. three times daily. 11. Levemir 20 units subcu every morning. 12. Magnesium 200 mg p.o. daily. 13. Protonix 20 mg p.o. daily. 14. MiraLax 17 g daily. 15. Potassium chloride 20 mEq p.o. twice daily. 16. Lyrica 50 mg p.o. twice daily. 17. Primidone 25 mg p.o. nightly. 18. Senna 8.6 mg twice daily. 19. Zocor 5 mg p.o. every evening. 20. Spiriva inhaler 18 mcg daily. 21. Ciprofloxacin 500 mg p.o. twice daily for 3 days. 22. Multaq 400 mg p.o. twice daily. 23. Metformin 500 mg p.o. twice daily. 24. Metoprolol 12.5 mg p.o. twice daily. 25. Prednisone 5 mg p.o. daily. ALLERGIES: TO CODEINE, ASPIRIN. DISCHARGE PLAN: The patient to follow up with primary care physician in 1 week. BRIEF COURSE DURING HOSPITALIZATION: The patient initially was sent from long-term on the with complaints of fever and chills. She apparently had a temperature of 103 when EMS picked her up. Her initial workup revealed urinary tract infection. The patient had le cultures drawn and was placed on broad-spectrum IV antibiotics. She was essentially admitted for sepsis with UTI. She has chronic pancytopenia and macrocytic anemia. Her cultures grew E coli sensitive to quinolones. During the course of her stay, the patient's H and H dropped to 7.7 g on the and later 7.2 g on the 4th. In view of this, GI consultation was requested as the patient had dark-colored stools around three episodes on the . She was evaluated by Dr. Winkler. Serial H and H were done, which has remained stable. Likely her dark stool is due to iron supplements and her diarrhea most likely due to the antibiotics that she received for UTI. Her sepsis and UTI are resolving. She needs to continue Cipro for another three days. She has remained hemodynamically stable. In the last 24 hours, she has had only one bowel movement. She is hemodynamically stable and will be discharged to [facility]. A total of 35 minutes was spent on discharge plan. Please see a [id number] documentation for the day of discharge on [employer]. Job ID: [id number] [facility]
--- NOTE | 2019-05-07 20:27 | EKG ---
Test Reason : Blood Pressure : / mmHG Vent. Rate : 068 BPM Atrial Rate : 068 BPM P-R Int : 174 ms QRS Dur : 128 ms QT Int : 452 ms P-R-T Axes : 046 088 022 degrees QTc Int : 480 ms Normal sinus rhythm Right bundle branch block Abnormal ECG Confirmed by LUKE YATES D.O. ([id number]), restaurant expeditor JESSENIA TSAI ([id number] on 05/07/2019 8:27:43 PM Referred By: Confirmed By:LUKE YATES D.O.
== END 2019-05-06 13:18 | DRG 872 ==
LOC: ERS 14:13 → T4-B 20:02
PROVIDERS: ADMIT Family Medicine; ATTEND Family Medicine
DX: A41.9 Sepsis, unspecified organism (principal); I13.0 Hypertensive heart and chronic kidney disease with heart failure and stage 1 through stage 4 chronic kidney disease, or unspecified chronic kidney disease; D61.818 Other pancytopenia; J96.11 Chronic respiratory failure with hypoxia; D62 Acute posthemorrhagic anemia; K52.1 Toxic gastroenteritis and colitis; E11.22 Type 2 diabetes mellitus with diabetic chronic kidney disease; N18.3 Chronic kidney disease, stage 3 (moderate); I50.9 Heart failure, unspecified; D53.9 Nutritional anemia, unspecified; F41.9 Anxiety disorder, unspecified; I25.10 Atherosclerotic heart disease of native coronary artery without angina pectoris; L89.152 Pressure ulcer of sacral region, stage 2; E66.9 Obesity, unspecified; F32.9 Major depressive disorder, single episode, unspecified; Z96.652 Presence of left artificial knee joint; I48.0 Paroxysmal atrial fibrillation; Z90.49 Acquired absence of other specified parts of digestive tract; Z90.710 Acquired absence of both cervix and uterus; Z88.8 Allergy status to other drugs, medicaments and biological substances; Z88.2 Allergy status to sulfonamides; Z79.899 Other long term (current) drug therapy; Z79.84 Long term (current) use of oral hypoglycemic drugs; Z79.52 Long term (current) use of systemic steroids; T36.95XA Adverse effect of unspecified systemic antibiotic, initial encounter; Z68.38 Body mass index [BMI] 38.0-38.9, adult
CPT/HCPCS: 36415; 36416; 71045; 80048; 80053; 81003; 81015; 82274; 82607; 82728; 82746; 83540; 83550; 83605; 83735; 83880; 84484; 85014; 85018; 85025; 86850; 86900; 86901; 87040; 87077; 87086; 87186; 87324; 87449; 87804; 93005; 93970; 94640; 96365; 96366; A4353; C9113; G0378; J0696; J1815; J1940; J2543; J3370; J3490; J7512; J7620; S0028